=== PATIENT | female | born 1940 | race Caucasian/White ===

== ENCOUNTER 2017-06-28 09:50 | Outpatient (CLI) | payer MEDICARE, SELFPAY | END 2017-06-28 10:35 | disposition home or self-care (01) | PROVIDERS: Visit Provider Internal Medicine Adolescent Medicine | DX: M85.80 Other specified disorders of bone density and structure, unspecified site (principal); E55.9 Vitamin D deficiency, unspecified | CPT/HCPCS: 96372; J0897 ==

== ENCOUNTER → 2017-11-22 11:49 | Outpatient (CLI) | payer MEDICARE, OTHER, SELFPAY ==
--- NOTE | 2017-11-22 11:52 | NM_ITS ---
CARDIOLITE SPECT MYOCARDIAL PERFUSION SCAN, REST AND STRESS: EXERCISE STRESS [facility] REVIEW QGS EF AND WALL MOTION EVALUATION: QPS - PERFUSION EVALUATION HISTORY: chest pain..soa DOSE: 9.98 mCi technetium 99m mibi intravenously at rest followed by 30.9 mCi technetium 99m mibi following the intravenous ministration of 0.4 mg of Lexiscan. Resting blood pressure is 141/68. Stress blood pressure 173/74. FINDINGS: Ejection fraction is calculated to be 88%. Stress images reveal uniform myocardial activity however rest images reveal decreased activity in the anterior wall. Gated images calculated ejection fraction of 88% with hyperdynamic wall motion. IMPRESSION: Evidence of reverse redistribution in the anterior wall. This is an abnormal high risk stress test. Hyperdynamic ejection fraction hyperdynamic wall motion.
== END ==
PROVIDERS: PCP Nurse Practitioner Family; Visit Provider Internal Medicine
DX: I20.8 Other forms of angina pectoris (principal); I65.29 Occlusion and stenosis of unspecified carotid artery; I11.9 Hypertensive heart disease without heart failure
CPT/HCPCS: 78452; 93017; 93306

== ENCOUNTER 2018-01-01 13:43 | Outpatient (CLI) | payer MEDICARE, BC, SELFPAY ==
[2018-01-01 14:00] VITALS: BP 110/78; PULSE 80; RESP 18; TEMP 36.8
[2018-01-01 14:20] VITALS: BP 110/78; PULSE 80; RESP 18; TEMP 36.8
== END 2018-01-01 14:20 | disposition home or self-care (01) ==
LOC: INF 13:43
PROVIDERS: PCP Nurse Practitioner Family; Visit Provider Internal Medicine Adolescent Medicine
DX: M85.80 Other specified disorders of bone density and structure, unspecified site (principal); E55.9 Vitamin D deficiency, unspecified
CPT/HCPCS: 96372; J0897

== ENCOUNTER → 2018-04-05 15:07 | Outpatient (CLI) | payer MEDICARE, BC, SELFPAY ==
--- NOTE | 2018-04-05 15:11 | XR_ITS ---
XR DEXA axial skeleton HISTORY: ITS.REASON: AGE RELATED OSTEOPOROSIS ORDERING PHYSICIAN: Juliette Land PATIENT AGE: 77 years COMPARISON: None FINDINGS: The BMD measured at the left femoral neck is 0.682 g/cm squared with a T score of -2.6. This is considered OSTEOPORTIC according to the World Health Organization criteria. Fracture risk is High. Treatment is advised. IMPRESSION: Osteoporosis with high fracture risk. Pharmacological treatment recommended. Suggest follow-up exam April 2019 to monitor response to therapy
--- NOTE | 2018-04-05 15:11 | MM_ITS ---
MM Dig screening mamm BI w/CAD CAD Screening COMPARISON: Digital mammograms with CAD 12/21/2016 and 05/22/2015 INDICATION: There is no personal or family history of breast cancer. There have been previous biopsies on each breast both benign. TECHNIQUE: Standard CC and MLO images were obtained. R2 CAD reviewed. FINDINGS: Moderate scattered fibroglandular densities are seen in both breasts slightly more prominent left breast than the right. There are few benign-appearing calcifications in each breast and there is arterial calcification noted bilaterally. There is a mole marker axillary tail right breast. There are stable benign-appearing nodular densities right breast. There is no suspicious lesion and no suspicious microcalcifications. IMPRESSION: Fibrofatty parenchyma no suspicious lesion seen BI-RADS Category: 2 Benign Finding(s) RECOMMENDED FOLLOW-UP: 1YR - 1 YEAR FOLLOW-UP (A letter has been sent to the patient regarding results of the study.)
== END ==
PROVIDERS: PCP Nurse Practitioner Family; Visit Provider Nurse Practitioner Family
DX: Z12.31 Encounter for screening mammogram for malignant neoplasm of breast (principal); Z13.820 Encounter for screening for osteoporosis; M81.0 Age-related osteoporosis without current pathological fracture
CPT/HCPCS: 77067; 77080

== ENCOUNTER → 2018-05-30 19:52 | Outpatient (CLI) | payer MEDICARE, BC, OTHER, SELFPAY | PROVIDERS: PCP Nurse Practitioner Family; Visit Provider Nurse Practitioner Family | DX: G47.00 Insomnia, unspecified (principal); R40.0 Somnolence; I25.10 Atherosclerotic heart disease of native coronary artery without angina pectoris; I10 Essential (primary) hypertension; G47.30 Sleep apnea, unspecified | CPT/HCPCS: 95810 ==

== ENCOUNTER 2018-07-05 14:25 | Outpatient (CLI) | payer MEDICARE, BC, SELFPAY ==
[2018-07-05 14:50] VITALS: BP 140/81; PULSE 81; RESP 18; O2SAT 95
== END 2018-07-05 15:10 | disposition home or self-care (01) ==
LOC: INF 14:38
PROVIDERS: Visit Provider Internal Medicine Adolescent Medicine
DX: M85.80 Other specified disorders of bone density and structure, unspecified site (principal)
CPT/HCPCS: 96372; J0897

== ENCOUNTER → 2018-08-17 06:46 | Outpatient (CLI) | payer MEDICARE, BC, SELFPAY ==
--- NOTE | 2018-08-17 06:52 | NM_ITS ---
History and Indications: Coronary artery disease, hypertension, diabetes, hyperlipidemia, family history, chest pain, shortness of breath and fatigue Procedure: Patient received a 0.4 mg of intravenous Lexiscan, resting heart rate was 77 bpm resting blood pressure 132/60, with Lexiscan maximum heart achieved was 115 bpm which is less than 85% of the maximum predicted heart rate and a blood pressure was 170/80. With Lexiscan patient complained of nausea and chest pain. Electrocardiogram: Resting echocardiogram showed sinus rhythm nonspecific ST-T changes, rightward axis with Lexiscan there is less than 1.[address] segment depression noted from the baseline EKG. The EKG portion of the Lexiscan Myoview is nondiagnostic. Cardiac stress and resting SPECT images: Cardiac stress and resting SPECT images were obtained using technetium 99 Myoview 32.8 mCi stress and 9.9 mCi at rest. Gated SPECT further analysis of segmental wall motion and calculation of the ejection fraction also done. Cardiac stress and resting SPECT images show uniform myocardial activity without segmental perfusion abnormality, computer derived ejection fraction is over 65% with no regional wall motion abnormality, right ventricle is normal size and contractility. Conclusion: 1. The EKG portion of the Lexiscan Myoview is nondiagnostic. 2. No scintigraphic evidence of reversible ischemia seen. Computer derived ejection fraction is over 65% with no regional wall motion abnormality, right ventricle is normal size and contractility. 3. Normal Lexiscan Myoview study.
--- NOTE | 2018-08-17 09:23 | HMH.ITSHM ---
Current Home Medications as stated by this patient Megan Pineda or pharmaceutical service representative. []METFORMIN CLOPIDOGREL ROVASTATIN DIAZEPAM METOPROLOL LANSOPRAZOLE MIRTERZAPINE
== END ==
PROVIDERS: PCP Internal Medicine Adolescent Medicine; Visit Provider Nurse Practitioner Family
DX: I25.10 Atherosclerotic heart disease of native coronary artery without angina pectoris (principal); R06.09 Other forms of dyspnea; I73.9 Peripheral vascular disease, unspecified; I11.9 Hypertensive heart disease without heart failure; E78.5 Hyperlipidemia, unspecified
CPT/HCPCS: 78452; 93017; A9502; J2785

== ENCOUNTER → 2018-09-05 07:52 | Outpatient (CLI) | payer MEDICARE, BC, SELFPAY ==
--- NOTE | 2018-09-05 07:54 | CI_ITS ---
Cerebrovascular Exam IMPRESSIONS 1. The bilateral vertebral arteries are patent with normal antegrade flow. 2. Study suggests 50-69% stenosis involving the right internal carotid artery and the left internal carotid artery. History: Coronary artery disease. Risk factors: Former tobacco use. Hypertension. Carotid duplex study. Complete study and Doppler flow study including spectral analysis, color and schuster scale imaging. Height: Height: 157.5cm. Height: 62in. Weight: Weight: 56.7kg. Weight: 124.7lb. Body mass index: BMI: 22.9kg/m^2. Body surface area: BSA: 1.58m^2. Location: Vascular laboratory. Patient status: Outpatient. Tables: Arterial flow: + +--------+--------+ Location V sys V ed + +--------+--------+ Right CCA - proximal 95.7cm/s 21.6cm/s + +--------+--------+ Right CCA - distal 108cm/s 21cm/s + +--------+--------+ Right ECA 191cm/s -------- + +--------+--------+ Right ICA - proximal 168cm/s 41.3cm/s + +--------+--------+ Right ICA - mid 102cm/s 22cm/s + +--------+--------+ Right ICA - distal 114cm/s 38.3cm/s + +--------+--------+ Right vertebral 60.3cm/s -------- + +--------+--------+ Left CCA - proximal 97.4cm/s 23.3cm/s + +--------+--------+ Left CCA - distal 163cm/s 31.4cm/s + +--------+--------+ Left ECA 183cm/s -------- + +--------+--------+ Left ICA - proximal 146cm/s 33cm/s + +--------+--------+ Left ICA - mid 125cm/s 36.1cm/s + +--------+--------+ Left ICA - distal 138cm/s 40.9cm/s + +--------+--------+ Left vertebral 56.6cm/s -------- + +--------+--------+ Velocity ratios: + + + + + + Right, V sys Right, V ed Left, V sys Left, V ed + + + + + + Max ICA/dist CCA 1.56 1.97 0.9 1.3 + + + + + + (Report amended ) Electronically signed by: Curly Lemon [id number]
--- NOTE | 2018-09-05 07:54 | NVE_ITS ---
Venous Exam Indications: 729.5 Pain in limb. IMPRESSIONS No evidence of deep or superficial vein thrombosis involving the right lower extremity and left lower extremity History: Risk factors: Former tobacco use. Hypertension. Medications: Clopidogrel (Plavix) daily. Patient has 2 palpable knots, one in each thigh, that are superficial in nature. Complete lower extremity venous duplex evaluation. Doppler flow study including spectral analysis, color and schuster scale imaging. Location: Vascular laboratory. Patient status: Outpatient. Tables: Venous flow and imaging: + +-------+ + Location Overall Flow properties + +-------+ + Right common femoral Patent Normal phasicity; spontaneous; normal augmentation; compressible + +-------+ + Right saphenofemoral junction Patent Compressible + +-------+ + Right profunda femoral Patent Compressible + +-------+ + Right femoral Patent Normal phasicity; spontaneous; normal augmentation; compressible; no reflux + +-------+ + Right greater saphenous Patent Normal phasicity; spontaneous; normal augmentation; compressible + +-------+ + Right popliteal Patent Normal phasicity; spontaneous; normal augmentation; compressible + +-------+ + Right posterior tibial Patent Compressible + +-------+ + Right peroneal Patent Compressible + +-------+ + Right gastrocnemius Patent Compressible + +-------+ + Right soleal Patent Compressible + +-------+ + Left common femoral Patent Normal phasicity; spontaneous; normal augmentation; compressible + +-------+ + Left saphenofemoral junction Patent Compressible + +-------+ + Left profunda femoral Patent Compressible + +-------+ + Left femoral Patent Normal phasicity; spontaneous; normal augmentation; compressible + +-------+ + Left greater saphenous Patent Normal phasicity; spontaneous; normal augmentation; compressible + +-------+
== END ==
PROVIDERS: PCP Nurse Practitioner Family; Visit Provider Nurse Practitioner Family
DX: I65.23 Occlusion and stenosis of bilateral carotid arteries; E78.5 Hyperlipidemia, unspecified; I11.9 Hypertensive heart disease without heart failure; I73.9 Peripheral vascular disease, unspecified; M79.605 Pain in left leg; I25.119 Atherosclerotic heart disease of native coronary artery with unspecified angina pectoris; Z87.891 Personal history of nicotine dependence
CPT/HCPCS: 93880; 93970

== ENCOUNTER → 2018-10-10 13:09 | Outpatient (POV) | payer MEDICARE, BC, SELFPAY | DX: Z00.00 Encounter for general adult medical examination without abnormal findings (principal) ==

== ENCOUNTER 2019-01-04 08:45 | Outpatient (CLI) | payer MEDICARE, BC, SELFPAY ==
[2019-01-04 08:57] VITALS: BP 153/71; PULSE 75; RESP 18; O2SAT 95
== END 2019-01-04 09:00 | disposition home or self-care (01) ==
LOC: INF 08:50
PROVIDERS: Visit Provider Internal Medicine Adolescent Medicine
DX: M81.0 Age-related osteoporosis without current pathological fracture (principal)
CPT/HCPCS: 96372; J0897

== ENCOUNTER → 2019-03-08 07:21 | Outpatient (CLI) | payer MEDICARE, BC, SELFPAY ==
--- NOTE | 2019-03-08 | CA_ITS ---
APPROVED REPORT Exam: Pharmacologic Technologist: Delmi Cook, Ht: 5 ft 2 in Wt: 121 lbs BSA: 1.54 m2 Medical History Medical History: CAD s/p stent,DIZZY Medications: Metoprolol,,,,, Asa,,,,, Diazepam,,,,, Ramipril,,,,, Vit C,,,,, RoSUVASTATIN,,,,, Lansoprasole,,,,, MiTRAZINE,,,,, Allergies: CELECOXIB,ROFECOXIB,PCN Cardiac Risk Factors: HTN, Hyperlipidemia, FHX of CAD Stress Test Details Test: LEXISCAN HR Resting HR: 80 bpm Max Heart Rate (APMHR): 143 bpm Max HR Achieved: 106 bpm Target HR (85% APMHR): 121 bpm % of APMHR: 74 Recovery HR: 99 bpm BP Resting BP: 157.0/58.0 mmHg Max BP: 164.0/65.0 mmHg Recovery BP: 145.0/69.0 mmHg ECG Clinical Exercise duration: 04:00 min Highest Stage Achieved: Exercise capacity: 1.0 METs Stress ECG Conclusion LEXISCAN PORTION COMPLETED. C/O STOMACH CRAMPING DURING PEAK INFUSION. NO CHEST PAIN OR SOA. STOMACH CRAMPING DURING PEAK INFUSION RESOLVED IN RECOVERY. OCCASIONAL PVC. OCCASIONAL PAC. LESS THAN 1.5MM ST DEPRESSION. IMAGES TO FOLLOW Electronically signed by : Suleiman Lama, 03/08/2019 17:59:48
--- NOTE | 2019-03-08 07:23 | CA_ITS ---
APPROVED REPORT Crew Boss: CHANDNI Laterality: Bilateral Study Quality: Good Indications: NICOLÁS Risk Factors Hypertension: Hyperlipidemia Doppler Spectral Velocity Analysis ECA (R) 166.00/15.80 cm/s ECA (L) 93.80/7.93 cm/s dICA (R) 86.10/17.50 cm/s dICA (L) 90.30/22.80 cm/s Gee (R) 82.50/18.70 cm/s Gee (L) 124.00/25.50 cm/s pICA (R) 139.00/29.10 cm/s pICA (L) 91.30/22.80 cm/s dCCA (R) 98.20/17.30 cm/s dCCA (L) 132.00/25.50 cm/s pCCA (R) 101.00/14.10 cm/s pCCA (L) 92.20/21.10 cm/s Vert (R) 58.00/10.50 cm/s Vert (L) 48.50/6.68 cm/s ICA/CCA 1.42 ICA/CCA 0.69 Findings Duplex evaluation demonstrates stenosis of the right proximal internal carotid artery in the range of 20-49% with PSV <140 cm/sec, EDV <100 cm/sec, and IC/CC Ratio <4.0.Duplex evaluation demonstrates stenosis of the left proximal internal carotid artery in the range of 20-49% with PSV <140 cm/sec, EDV <100 cm/sec, and IC/CC Ratio <4.0. Antegrade flow in both vertebrals Conclusion Duplex evaluation demonstrates stenosis of the bilateral Internal Carotid Arteries in the range of 20-49% <140 cm/sec. Electronically signed by : Curly Lemon MD 03/08/2019 17:01:22
--- NOTE | 2019-03-08 07:23 | NM_ITS ---
APPROVED REPORT Exam: Nuclear Stress Test Indication: CAD, 2 STINTS, HTN, DM, FM HX, FATIQUQ, DIZZINESSS Patient Location: Outpatient Stress Tech: Keysha Beniteznkson [place] Tech:Sherrie Persaud, ARRT RT (R)(N)(M) Ht: 5 ft 2 in Wt: 121 lbs BSA: 1.54 m2 HR: 78 bpm BMI: 22.1 History: CAD, 2 STINTS, HTN, DM, FM HX, FATIQUQ, DIZZINESS Procedure: Patient received a 0.4 mg of intravenous Lexiscan, resting heart rate 78 bpm, resting blood pressure 157/58 mmHg, with Lexiscan maximum heart rate achived was 104 bpm which is Less than 85 % of the maximum predicted heart rate and blood pressure was 159/60 mmHg. With Lexiscan, patient denied any complaint of chest pain. Electrocardiogram Resting electro cardiogram showed sinus rhythm, with Lexiscan there is less than 1.[address] segment depression noted from the baseline EKG. The EKG portion of the Lexiscan Myoview is nondiagnostic. Cardiac Stress and Resting SPECT Images: Cardiac Stress and Resting SPECT images were obtained using technetium 99m Myoview 31.7 mCi stress and 10.07 mCi at rest. Gated SPECT with analysis of segmental wall motion and calculation of the ejection fraction also done. Cardiac stress and resting SPECT images show uniform myocardial activity without segmental perfusion abnormality, computer derived ejection fraction is 64% with no regional wall motion abnormality, right ventricle is normal size and contractility. Conclusion: 1. The EKG portion of the Lexiscan Myoview is nondiagnostic. 2. No scintigraphic evidence of reversible ischemia seen, computer derived ejection fraction is 64% with no regional wall motion abnormality, right ventricle is normal size and contractility. 3. Normal Lexiscan Myoview study. Electronically signed by : Suleiman Lama, 03/08/2019 13:21:35
== END ==
PROVIDERS: PCP Nurse Practitioner Family; Visit Provider Physician Assistant
DX: I25.10 Atherosclerotic heart disease of native coronary artery without angina pectoris; R06.02 Shortness of breath; E78.5 Hyperlipidemia, unspecified; I11.9 Hypertensive heart disease without heart failure; I73.9 Peripheral vascular disease, unspecified; M79.605 Pain in left leg; I65.23 Occlusion and stenosis of bilateral carotid arteries
CPT/HCPCS: 78452; 93017; 93880; A9502; J2785

== ENCOUNTER → 2019-04-10 14:15 | Outpatient (POV) | payer MEDICARE, BC, SELFPAY | PROVIDERS: Visit Provider Internal Medicine | DX: Z00.00 Encounter for general adult medical examination without abnormal findings (principal) ==

== ENCOUNTER → 2019-05-03 10:22 | Outpatient (CLI) | payer MEDICARE, BC, SELFPAY ==
--- NOTE | 2019-05-03 10:24 | MM_ITS ---
PROCEDURE: MM DIG SCREENING MAMM BI W/CAD Patient Age:78Y CLINICAL INDICATION: screening routine screening mammogram. No hormones. No new complaints but The patient has had previous excisional biopsies of both right and left breast. The history sheet nodes biopsy scars at the superior the breast both at the upper outer quadrant and upper inner quadrant. Also scar just lateral to left nipple at 4 o'clock position COMPARISON: [facility]MSB DIG MAMM-SCREEN AXEL from 05/14/2014 [id number] DIG MAMM-DX UNI ADD VIEWS-RT from 06/09/2014 [facility] DIG MAMM-SCREEN AXEL from 05/22/2015 [facility] DIG MAMM-SCREEN AXEL W/CAD from 12/21/2016 [facility] MM Dig screening mamm BI w/CAD from 04/05/2018 TECHNIQUE: Standard CC and MLO images were obtained. R2 CAD reviewed. Additional axillary CC view left breast only FINDINGS: Right breast appear stable no new areas of concern follow-up in 1 year on right. Left breast: On today's MLO view there is an area of slight increased density seen at the deep breast towards posterior margin of image; may merely due to technique and positioning or less compression.... Regional density here slightly more evident than on multiple previous MLO views-. Also note today's left axillary CC view was there is moderate density towards the posterior axillary tail left breast; this area was not included previously, no previous axillary CC views. Thus would recommend spot views MLO, CC along with full 90 degree view left breast to further evaluate. A left breast ultrasound may be of benefit as well I would note the patient has had biopsies in this region which may contribute to the asymmetry here and the mild architectural irregularity seen in areas of left breast IMPRESSION: Left breast: Area of slight increased density seen at posterior breast on both CC and MLO view. Merely be an area of accentuated areas of scarring or asymmetric breasts tissue, but does warrants spot views and ultrasound to further evaluate on left A right mammogram: Unchanged. Follow-up right mammogram 1 year BI-RAD Category: 0 Need Additional Imaging Evaluation FOLLOW-UP: IMM Immediate Follow-up Recommended (A letter has been sent to the patient regarding results of the study.) Dictated by: Chon Duron MD 05/04/2019 12:07 Electronically signed by Chon Duron MD in [place] 05/04/2019 12:07
== END ==
PROVIDERS: PCP Nurse Practitioner Family; Visit Provider Nurse Practitioner Family
DX: Z12.31 Encounter for screening mammogram for malignant neoplasm of breast (principal)
CPT/HCPCS: 77067

== ENCOUNTER → 2019-06-07 10:10 | Outpatient (CLI) | payer MEDICARE, BC, SELFPAY ==
--- NOTE | 2019-06-07 10:16 | XR_ITS ---
PROCEDURE: XR FOOT RT MIN 3V CLINICAL INDICATION: RT FOOT PAIN COMPARISON: No exams were available for comparison FINDINGS: No fracture or dislocation. No lytic or blastic change. There is normal mineralization. The joint spaces are well-preserved. No significant degenerative/arthritic changes. No erosive changes evident. There is no evidence of recent or old fracture. There is mild spurring of the calcaneus at the insertion of the Achilles tendon. The plantar arch is normal. Other findings:None. IMPRESSION: No acute findings. Dictated by: Dr. Jose Godfrey MD 06/07/2019 10:[address] Jose Godfrey MD in [place] 06/07/2019 10:56
== END ==
PROVIDERS: PCP Nurse Practitioner Family; Visit Provider Internal Medicine Adolescent Medicine
DX: M79.671 Pain in right foot (principal)
CPT/HCPCS: 73630

== ENCOUNTER 2019-06-19 15:12 | Outpatient (RCR) | payer MEDICARE, BC, SELFPAY | END 2019-06-19 15:45 | disposition home or self-care (01) | LOC: PT 15:12 | PROVIDERS: Visit Provider Internal Medicine Adolescent Medicine | DX: M79.671 Pain in right foot (principal) ==

== ENCOUNTER → 2019-06-21 15:00 | Outpatient (CLI) | payer MEDICARE, BC, SELFPAY ==
--- NOTE | 2019-06-21 15:00 | MM_ITS ---
PROCEDURE: MM DIG MAMM DX UNILAT LT CAD CLINICAL INDICATION: abnormal mammogram COMPARISON: [facility] DIG MAMM-SCREEN AXEL W/CAD from 12/21/2016 [facility] MM Dig screening mamm BI w/CAD from 04/05/2018 MM DIG SCREENING MAMM BI W/CAD from 05/03/2019 TECHNIQUE: Spot-compression MLO and CC views and 90 degree lateral view FINDINGS: Moderate scattered fibroglandular densities are seen. The additional views and spot compression views show no definite persistent suspicious mass or architectural distortion. There are no suspicious microcalcifications. Again noted are the couple benign-appearing calcifications IMPRESSION: Negative problem solving views BI-RAD Category: 2 Benign Finding(s) FOLLOW-UP: 1YR 1 Year Follow-up (A letter has been sent to the patient regarding results of the study.) Dictated by: Dr. Jose Godfrey MD 07/04/2019 14:[address] Jose Godfrey MD in [place] 07/04/2019 14:21
--- NOTE | 2019-06-21 15:48 | US_ITS ---
PROCEDURE: US BREAST LT COMPLETE CLINICAL INDICATION: ABNORMAL MAMM COMPARISON: No exams were available for comparison FINDINGS: Scanning throughout the entire breast shows no suspicious cystic or solid lesion. There is a small hyperechoic oval lesion at the 1 o'clock position measuring 0.7 by 0.5 x 0.2 cm with fairly well defined borders and this likely is a small lipoma. There are couple normal size and normal appearing nodes in the axilla. IMPRESSION: Essentially unremarkable ultrasound left breast Dictated by: Dr. Jose Godfrey MD 07/04/2019 14:[address] Jose Godfrey MD in [place] 07/04/2019 14:16
== END ==
PROVIDERS: PCP Nurse Practitioner Family; Visit Provider Obstetrics & Gynecology
DX: R92.8 Other abnormal and inconclusive findings on diagnostic imaging of breast (principal)
CPT/HCPCS: 76641; 77065

== ENCOUNTER 2019-07-08 12:21 | Outpatient (CLI) | payer MEDICARE, BC, SELFPAY ==
[2019-07-08 12:30] VITALS: BP 125/74; PULSE 68; RESP 20; TEMP 36.9; O2SAT 95
== END 2019-07-08 13:00 | disposition home or self-care (01) ==
LOC: INF 12:21
PROVIDERS: PCP Nurse Practitioner Family; Visit Provider Internal Medicine Adolescent Medicine
DX: M81.0 Age-related osteoporosis without current pathological fracture (principal)
CPT/HCPCS: 96372; J0897

== ENCOUNTER → 2019-08-19 10:53 | Outpatient (CLI) | payer MEDICARE, BC, SELFPAY ==
--- NOTE | 2019-08-19 10:53 | CA_ITS ---
APPROVED REPORT Paid Intern: Daphnie Zimmerman RVT Laterality: Bilateral Study Quality: Good Indications: Carotid stenosis Risk Factors Hypertension: Hyperlipidemia Ex smoker Doppler Spectral Velocity Analysis ECA (R) 143.10/7.70 cm/s ECA (L) 139.80/9.90 cm/s dICA (R) 111.60/27.90 cm/s dICA (L) 89.00/19.10 cm/s Gee (R) 76.90/10.90 cm/s Gee (L) 148.90/21.50 cm/s pICA (R) 152.00/42.00 cm/s pICA (L) 218.90/36.80 cm/s dCCA (R) 82.30/19.60 cm/s dCCA (L) 98.60/15.60 cm/s pCCA (R) 86.00/19.90 cm/s pCCA (L) 113.20/27.40 cm/s Vert (R) 52.60/14.80 cm/s Vert (L) 42.00/7.20 cm/s ICA/CCA 1.85 ICA/CCA 2.22 Findings Study suggests 50-69% stenosis of the right internal cartoid artery unchanged from the 09/05/18 study. Study suggests 50-69% stenosis of the left internal cartoid artery unchanged from the 09/05/18 study. Antegrade flow seen bilateral vertebral arteries. 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 Study suggests 50-69% stenosis of the left internal cartoid artery unchanged from the 09/05/18 study. Antegrade flow seen bilateral vertebral arteries. Electronically signed by : Fransico Metzger, 08/21/2019 07:19:05
== END ==
PROVIDERS: PCP Nurse Practitioner Family; Visit Provider Physician Assistant
DX: I11.9 Hypertensive heart disease without heart failure (principal); I25.10 Atherosclerotic heart disease of native coronary artery without angina pectoris; R42 Dizziness and giddiness; I65.23 Occlusion and stenosis of bilateral carotid arteries
CPT/HCPCS: 93880

== ENCOUNTER → 2019-09-23 14:45 | Outpatient (CLI) | payer MEDICARE, BC, SELFPAY ==
--- NOTE | 2019-09-23 14:49 | US_ITS ---
PROCEDURE: US KIDNEY CLINICAL INDICATION: PROTEINURIA COMPARISON: No exams were available for comparison FINDINGS: The right kidney is [id number]. No hydronephrosis, cortical thinning, or renal mass or perinephric fluid collection is evident. The left kidney is [id number]. No hydronephrosis, cortical thinning, or renal mass or perinephric fluid collection is evident. There is mild bilateral renal cortical thinning IMPRESSION: Renal cortical thinning otherwise negative bilateral renal ultrasound. Dictated by: Curly Lemon MD 09/23/2019 15:39 Electronically signed by Curly Lemon MD in [place] 09/23/2019 15:39
== END ==
PROVIDERS: PCP Nurse Practitioner Family; Visit Provider Nurse Practitioner Family
DX: R80.8 Other proteinuria (principal)
CPT/HCPCS: 76770

== ENCOUNTER → 2019-10-23 13:59 | Outpatient (POV) | payer MEDICARE, BC, SELFPAY | PROVIDERS: PCP Nurse Practitioner Family | DX: Z00.00 Encounter for general adult medical examination without abnormal findings (principal) ==

== ENCOUNTER 2020-01-06 10:23 | Outpatient (CLI) | payer MEDICARE, BC, SELFPAY ==
[2020-01-06 10:25] VITALS: BP 116/49; PULSE 65; RESP 18; TEMP 36.7; O2SAT 98
== END 2020-01-06 10:40 | disposition home or self-care (01) ==
LOC: INF 10:23
PROVIDERS: PCP Nurse Practitioner Family; Visit Provider Internal Medicine Adolescent Medicine
DX: M81.0 Age-related osteoporosis without current pathological fracture (principal)
CPT/HCPCS: 96372; J0897

== ENCOUNTER → 2020-01-22 09:34 | Outpatient (CLI) | payer MEDICARE, BC, SELFPAY ==
--- NOTE | 2020-01-22 09:53 | CT_ITS ---
PROCEDURE: CT ABDOMEN PELVIS WO/W CON CLINICAL INDICATION: WEIGHT LOSS Weight loss with generalized abdominal pain COMPARISON: ABDPELW/O CT ABD PELVIS W/O CONTRAST from 07/18/2014 TECHNIQUE: IV Contrast: 75ML OPTIRAY 350 Oral Contrast None Axial images obtained with sagittal and coronal reformats. All CT scans at the facility use one or more dose reduction, viz: automated exposure control, ma/kV adjustment per patient size (including targeted exams where dose is matched to indication, i.e. head), or iterative reconstruction technique. FINDINGS: The liver and spleen have an unremarkable appearance. There is a medium-sized hiatal hernia. There has been a prior cholecystectomy. There is pancreatic atrophy there are nonobstructing bilateral renal calculi well as vascular calcifications in both kidneys. No ureteral calculi. A small cyst is present along lower pole of the right kidney posteriorly at 8 mm. There is an additional cyst involving the right kidney medially at 5 mm. No intestinal obstruction or free air. No evidence of appendicitis. There is diverticulosis of the transverse descending and sigmoid colon. Prior hysterectomy. No pelvic mass or abnormal fluid collection. Prior L1 kyphoplasty with mild wedging of L1. IMPRESSION: 1. No acute abdominal or pelvic findings. 2. Medium-sized hiatal hernia. 3. Nonobstructing renal calculi versus vascular calcifications. Dictated by: Curly Lemon MD 01/23/2020 10:03 Electronically signed by Curly Lemon MD in [place] 01/23/2020 10:03
--- NOTE | 2020-01-22 10:20 | CT_ITS ---
PROCEDURE: CT CHEST W CON CLINCAL INDICATION: WEIGHT LOSS COMPARISON: CT ABDOMEN PELVIS WO/W CON from 01/22/2020 TECHNIQUE: IV Contrast: 75ml Optiray 350 Axial images obtained with sagittal and coronal reformats. All CT scans at the facility use one or more dose reduction, viz: automated exposure control, ma/kV adjustment per patient size (including targeted exams where dose is matched to indication, i.e. head), or iterative reconstruction technique. FINDINGS: HEART AND MEDIASTINAL STRUCTURES: There are mildly prominent right hilar lymph nodes on the right measuring up to 2.3 x 1.5 cm. No mediastinal adenopathy. A small precarinal node is present measuring 7 mm. Atherosclerotic calcification involves the aortic arch. Coronary artery stents and or calcification present. There is a small to medium-sized hiatal hernia. LUNGS AND PLEURAL SPACES: COPD changes with centrilobular emphysema. There is a 1.9 x 1.9 x 1.2 cm irregular opacity in the right upper lobe anteriorly and inferiorly along the major fissure. This does contain a few air bronchograms and may be due to an area of dense pneumonia. One cannot exclude the possibility of a neoplastic process. Follow-up is suggested. No effusions. Small area of atelectasis or infiltrate is noted in the superior segment of the right lower lobe. BONY STRUCTURES: Degenerative changes thoracic spine. Prior kyphoplasty at L1. UPPER ABDOMEN: Prior cholecystectomy. Moderate-sized hiatal hernia. ADDITIONAL FINDINGS: No other significant abnormalities. IMPRESSION: 1. There is a 1.9 cm irregular opacity in the inferior aspect of the right upper lobe. This does appear to contain some air bronchograms and could be due to an area of dense consolidation/pneumonia however, neoplasm is also consideration. Would recommend short-term CT follow-up in 2-4 weeks following completed treatment for pneumonia. If this persists then, PET CT may provide further evaluation. There is some mild right hilar adenopathy which could be reactive or neoplastic. 2. COPD with centrilobular emphysema. 3. Hiatal hernia Dictated by: Curly Lemon MD 01/23/2020 09:52 Electronically signed by Curly Lemon MD in [place] 01/23/2020 09:52
== END ==
PROVIDERS: PCP Nurse Practitioner Family; Visit Provider Nurse Practitioner Family
DX: R63.4 Abnormal weight loss (principal)
CPT/HCPCS: 71260; 74178; Q9967

== ENCOUNTER → 2020-02-24 09:59 | Outpatient (CLI) | payer MEDICARE, BC, SELFPAY ==
[2020-02-24 13:11] LABS: Coronavirus 19 IgG Antibody Negative (Negative); Coronavirus 19 IgM Antibody Negative (Negative)
== END ==
PROVIDERS: Visit Provider Surgery
DX: Z01.818 Encounter for other preprocedural examination (principal); Z12.11 Encounter for screening for malignant neoplasm of colon
CPT/HCPCS: 36415; 86328

== ENCOUNTER 2020-02-25 08:19 | Day surgery (SDC) | payer MEDICARE, BC, SELFPAY ==
[2020-02-24 08:49] VITALS: BMI 19.7
[2020-02-25 08:51] VITALS: BP 146/67; PULSE 80; RESP 16; TEMP 36.7; O2SAT 98
--- NOTE | 2020-02-25 09:09 | HMH.HP ---
*Admission Date: 02/25/20 *Chief complaint: Weight loss, inability to eat *History of present illness: Patient is a 79-year-old female referred by Sima Land for EGD and colonoscopy. I had seen the patient in July 2016 and performed EGD and colonoscopy. At that time she had a moderately large sliding hiatal hernia, some gastritis, and mild chronic duodenitis. Colonoscopy was performed which was somewhat difficult due to chronic diverticulosis but ultimately using the endoscope right colon was evaluated in a limited fashion. This was followed by contrast enema which revealed no obvious mass lesion. I had recommended a follow-up colonoscopy in 1 year at that time. She states that for couple of months she has had problems eating. She states I cannot eat . She has lost weight. She has lost about 10 pounds over 3 months. She describes most difficulty with eating meats. She describes some gagging and choking sensation. [facility] History I have reviewed the patient's past medical history: Yes Medical History: Reports:: Carotid Stenosis, Congestive Heart Failure, Coronary Artery Disease, Gastroesophageal Reflux Disease(GERD), Hyperlipidemia, Hypertension, Valvular Heart Disease Denies:: Cancer, Diabetes Mellitus Type 1, Diabetes Mellitus Type 2, Internal Pacemaker, MRSA, Seizures *Have you ever received a pneumonia vaccine?: Yes *Have you received a flu vaccine this season?: No Other Medical History: Reports: Arthritis, Cataracts Laterality Cases: Bilateral: Breast Biopsy, Tonsillectomy Other Surgeries: Yes: No Previous Surgery, Appendectomy, BSO, Cardiac Catheterization, Cholecystectomy, Coronary Stent, Hysterectomy-Total, Skin Cancer Excision, Tubal Ligation, Other. No: Pacemaker Amputation: No Fractures: No - *Social History Last grade of school completed: High school graduate Smoking Status: Never smoker Tobacco Type: cigarettes Alcohol Intake: never Alcohol Intake Frequency:: other Substance Use Type: denies use *Occupational Status:: retired Housing: house Household Members: children *Travel in the last 8 weeks: None Family Hx:: Cancer, Coronary Artery Disease, Heart Attack Review of Systems - Review of Systems Review of systems:: pertinent systems reviewed and negative unless documented below Meds Home Medications Medication Instructions Recorded Confirmed Type aspirin 81 mg tablet,delayed 81 mg PO DAILY tab 11/06/17 02/21/20 History release lansoprazole 30 mg capsule,delayed 30 mg PO DAILY 11/06/17 02/21/20 History release ramipril 5 mg tablet 5 mg PO DAILY tab 11/06/17 02/21/20 History ascorbic acid (vitamin C) 500 mg 500 mg PO DAILY cap 08/13/18 02/21/20 History capsule rosuvastatin 10 mg tablet 10 mg PO DAILY #90 tab 08/13/19 02/21/20 Rx Calcium Carbonate [Calcium] 600 mg PO DAILY 01/06/20 02/21/20 History Cholecalciferol (Vitamin D3) 125 mcg PO DAILY 01/06/20 02/21/20 History [Vitamin D3] Multivit-Min/Iron/Folic/Lutein 1 each PO DAILY 01/06/20 02/21/20 History [Centrum Silver Women Tablet] Trazodone HCl 25 mg PO HS 01/06/20 02/21/20 History vit C 250 mg-E 200 unit-zinc 40 1 tab PO BID 01/24/20 02/21/20 History mg-copper 1 [id number] capsule nitrofurantoin macrocrystal 100 mg 100 mg PO QHS 02/12/20 02/21/20 History capsule Metoprolol Tartrate [Lopressor 25 mg PO BID 02/21/20 02/21/20 History 25mg tablet] Allergies Allergy/AdvReac Type Severity Reaction Status Date / Time celecoxib [From CELEBREX] Allergy Severe RAPID Verified 02/24/20 08:48 HEART RATE rofecoxib [From VIOXX] Allergy Severe RAPID Verified 02/24/20 08:48 HEART RATE Penicillins [PENICILLINS] Allergy Unknown Verified 02/24/20 08:48 tuberculin, purified protein Allergy Unknown POSITIVE Verified 02/24/20 08:48 deriva REACTOR [TUBERCULIN,PURIF.PROT.DERIV.] Exam Vital signs and Labs for Last 24 Hours: Temp Pulse Resp BP Pulse Ox 98.0 F 80 16 146/67 H 98 02/25/20 0
[2020-02-25 09:31] VITALS: O2SAT 98
[2020-02-25 10:25] VITALS: BP 103/52; PULSE 79; RESP 16; TEMP 36.4; O2SAT 98
--- NOTE | 2020-02-25 10:29 | HMH.SCOPE ---
- Procedure: Date: 02/25/20 Procedure Performed:: Esophagogastroduodenoscopy with biopsies Total colonoscopy with polypectomy Indications:: Patient is a 79-year-old female referred by Sima Land for EGD and colonoscopy. I had seen the patient in July 2016 and performed EGD and colonoscopy. At that time she had a moderately large sliding hiatal hernia, some gastritis, and mild chronic duodenitis. Colonoscopy was performed which was somewhat difficult due to chronic diverticulosis but ultimately using the endoscope right colon was evaluated in a limited fashion. This was followed by contrast enema which revealed no obvious mass lesion. I had recommended a follow-up colonoscopy in 1 year at that time. She states that for couple of months she has had problems eating. She states I cannot eat . She has lost weight. She has lost about 10 pounds over 3 months. She describes most difficulty with eating meats. She describes some gagging and choking sensation. Performing Provider:: Kenny Mercado MD Referring Provider:: Sima Land Sedation:: Propofol Procedure:: Consent was obtained and patient was taken to endoscopy procedure room. She was positioned in lateral decubitus position. Adequate intravenous sedation was achieved with anesthesia titration of propofol. Attention was first turned to upper endoscopy. Olympus endoscope was inserted via the oropharynx. Esophagus was cannulated and scope was advanced through the esophagus which appeared relatively unremarkable. There is no evidence of any esophagitis. Stomach was cannulated and insufflated. She was noted to have a rather large sliding-type hiatal hernia which was confirmed with retroflexion. There was some minor diffuse nonerosive gastritis. Gastric mucosal biopsies obtained for CLOtest for H. pylori. Gastric mucosal biopsy was obtained for histopathologic analysis. Endoscope was advanced through the pylorus. Duodenum and duodenal sweep are unremarkable. Endoscope was withdrawn as the stomach was desufflated. Next attention was turned to colonoscopy. Patient was repositioned. Variable stiffness Olympus colonoscope was inserted via the anus. She had significant chronic distal sigmoid diverticular disease which made advancement of the colonoscope difficult. Ultimately this area was traversed and the colonoscope was advanced to the cecum. Ileocecal valve and appendiceal orifice were identified. Colonic preparation was excellent. Colonoscope was advanced briefly short distance into the ileocecal valve which appeared unremarkable. Colonoscope was withdrawn through the colon with careful surveillance. She had pandiverticulosis but this was before most pronounced diverticular disease in the distal sigmoid region. In the rectosigmoid region there is a hyperplastic appearing polyp which was removed with cold biopsy forceps. In the rectum there were a couple of additional hyperplastic appearing polyps which were removed with cold biopsy forceps. Retroflexion within the rectum revealed minimal internal hemorrhoids. Colonoscope was withdrawn. Findings:: Moderately large sliding hiatal hernia Mild diffuse nonerosive gastritis Pandiverticulosis with significant chronic diverticular disease in the distal sigmoid Hyperplastic appearing polyps Recommendations:: When the patient returns to the office for follow-up I will have discussion regarding the nature of her symptoms. If this seems to be potentially from mechanical etiology possible referral for consideration of hiatal hernia repair may be entertained. However, she may also require speech pathology assessment for swallowing evaluation. Complications:: None immediately apparent Estimated blood obtained (mL): 2
[2020-02-25 10:35] VITALS: BP 124/64; PULSE 84; RESP 16; O2SAT 100
--- NOTE | 2020-02-25 10:42 | HMH.ANESCL ---
[facility] Anesthesia Checklist - Patient Identification Patient Identification: Arm Band, Verbal (Name & ) - Structural Data Admitted From: Home Planned Operative Procedure/s: EGD/Colonoscopy Consent for Planned Operative Procedure(s) Verified: Yes Verified Documents: Surgical Consent, History and Physical - NPO Status Verified Time NPO: 00:00 - Chart Verification Results Verified: None - Additional verifications Anesthesia Reactions: No - Airway Assessment C-Spine Mobility Assessed: Yes (limited neck ROM) TMJ Mobility Assessed: Yes Dentition: Edentulous - Neurological Assessment Level of Consciousness: Awake, Alert, Appropriate, Follows Commands Hx Seizures: No Numbness or tingling in extremities: No - Anesthesia Plan Anesthesia Risk discussed: Yes Anesthesia Plan: Verified ASA Class: III Anesthesia Type: MAC [facility] History I have reviewed the patient's past medical history: Yes Medical History: Reports:: Carotid Stenosis, Congestive Heart Failure, Coronary Artery Disease, Gastroesophageal Reflux Disease(GERD), Hyperlipidemia, Hypertension, Valvular Heart Disease Denies:: Cancer, Diabetes Mellitus Type 1, Diabetes Mellitus Type 2, Internal Pacemaker, MRSA, Seizures *Have you ever received a pneumonia vaccine?: Yes *Have you received a flu vaccine this season?: No Other Medical History: Reports: Arthritis, Cataracts Anesthesia experience/problems:: None Laterality Cases: Bilateral: Breast Biopsy, Tonsillectomy Other Surgeries: Yes: No Previous Surgery, Appendectomy, BSO, Cardiac Catheterization, Cholecystectomy, Coronary Stent, Hysterectomy-Total, Skin Cancer Excision, Tubal Ligation, Other. No: Pacemaker Amputation: No Fractures: No - *Social History Last grade of school completed: High school graduate Smoking Status: Never smoker Tobacco Type: cigarettes Alcohol Intake: never Alcohol Intake Frequency:: other Substance Use Type: denies use *Occupational Status:: retired Housing: house Household Members: children *Travel in the last 8 weeks: None Family Hx:: Cancer, Coronary Artery Disease, Heart Attack
[2020-02-25 10:45] VITALS: BP 166/80; PULSE 87; RESP 16; O2SAT 97
[2020-02-25 10:55] VITALS: BP 165/70; PULSE 81; RESP 16; O2SAT 100
== END 2020-02-25 10:55 | disposition home or self-care (01) ==
LOC: OUTP 08:20
PROVIDERS: PCP Nurse Practitioner Family; Visit Provider Surgery
PROC: 0DJ08ZZ Inspection of Upper Intestinal Tract, Via Natural or Artificial Opening Endoscopic (ICD-10-PCS; CPT 43235; principal; 2020-02-25 09:30)
DX: K63.5 Polyp of colon (principal); K44.9 Diaphragmatic hernia without obstruction or gangrene; K29.60 Other gastritis without bleeding; K57.30 Diverticulosis of large intestine without perforation or abscess without bleeding; R63.4 Abnormal weight loss; Z68.1 Body mass index [BMI] 19.9 or less, adult; I65.29 Occlusion and stenosis of unspecified carotid artery; E78.5 Hyperlipidemia, unspecified; I11.0 Hypertensive heart disease with heart failure; I50.9 Heart failure, unspecified; K21.9 Gastro-esophageal reflux disease without esophagitis; Z90.89 Acquired absence of other organs
CPT/HCPCS: 43239; 45380; 87339; 88305

== ENCOUNTER → 2020-04-22 13:27 | Outpatient (POV) | payer MEDICARE, BC, SELFPAY | DX: Z00.00 Encounter for general adult medical examination without abnormal findings (principal) ==

== ENCOUNTER 2020-06-29 14:41 | Inpatient (IN) | payer MEDICARE, BC, SELFPAY ==
[2020-06-29] VITALS (10 sets, daily range): BP systolic 79–136; BP diastolic 44–66; PULSE 104–121; RESP 13–28; TEMP 35.3–37.3; O2SAT 87–98; BMI 21.1; BMI 20.6
--- NOTE | 2020-06-29 15:00 | PC.NURSE ---
PT UP TO BEDSIDE COMMODE
--- NOTE | 2020-06-29 15:00 | XR_ITS ---
PROCEDURE: XR CHEST 2V CLINICAL HISTORY: sepsis COMPARISON: CT CT CHEST W CON from 01/22/2020 FINDINGS: The cardiomediastinal silhouette and pulmonary vascularity are within normal limits. There are cardiac stents noted. The lungs are clear without infiltrates, suspicious nodules, or pleural effusions. There is minimal right perihilar atelectasis or scarring. No acute bony abnormalities. There has been a previous kyphoplasty of L1. IMPRESSION: No acute findings. Dictated by: Dr. Jose Godfrey MD 06/29/2020 20:43 Dr. Jose Godfrey MD in [facility] 06/29/2020 20:43
[2020-06-29 15:53] LABS: Basophils # 0.1 K/mm3 (0-0.2); Basophils % 0.5 % (0.1-2.0); Eosinophils # 0.1 K/mm3 (0.0-0.4); Eosinophils % 0.5 % (0.1-12.0); Hematocrit 49.8 % (37.0-47.0); Hemoglobin 15.8 g/dL (12.2-16.2); Lymphocytes # 2.9 K/mm3 (0.7-4.5); Lymphocytes % 11.5 % (10-50); Mean Corpuscular HGB Conc 31.9 g/dL (31.8-35.4); Mean Corpuscular Hemoglobin 30.7 pg (27.0-31.2); Mean Corpuscular Volume 96.5 fl (81-99); Mean Platelet Volume 8.7 fl (7.4-10.4); Monocytes # 1.1 K/mm3 (0.1-1.0); Monocytes % 4.2 % (1.7-9.3); Neutrophils % 83.3 % (37.0-80.0); Platelet Count 306 K/mm3 (142-424); Red Blood Count 5.16 M/mm3 (4.20-5.40); Red Cell Distribution Width 14.2 % (11.5-17.5); White Blood Count 25.2 K/mm3 (4.8-10.8)
[2020-06-29 15:55] LABS: MANUAL DIFFERENTIAL MANUAL DIFFERENTIAL (MANUAL DIFF)
[2020-06-29 16:02] LABS: Lactic Acid 5.8 mmol/L (0.7-2.1)
--- NOTE | 2020-06-29 16:02 | PC.NURSE ---
Notified MD pinon lactic of 5.8
--- NOTE | 2020-06-29 16:10 | CT_ITS ---
Procedure: CT ABDOMEN PELVIS WO CON Referring Doctor: Cj Watkins Patient Age:79Y CLINICAL INDICATION: abdominal and flank pain 79-year-old with Nausea vomiting. Scan done without contrast due to poor renal function COMPARISON: CT CT ABDOMEN PELVIS WO/W CON from 01/22/2020 TECHNIQUE: No IV contrast Helical axial images obtained with sagittal and coronal reformats. All CT scans at the facility use one or more dose reduction, viz: automated exposure control, ma/kV adjustment per patient size (including targeted exams where dose is matched to indication, i.e. head), or iterative reconstruction technique. FINDINGS: Lower thorax: Hyperexpansion suggests emphysematous changes with hazy appearance lung base likely reflect atelectasis but could not exclude early infiltrate . Prominent hiatal hernia with GE junction above the hiatus. Air-fluid level seen at the distal most esophagus is well reflecting flex the gastroesophageal reflux. ABDOMEN: Decreased sensitivity in evaluating abdomen pelvis due to lack of IV contrast but also note the patient has had a kyphoplasty at L1 the pronounced density here yields prominent streak artifact here at the upper abdomen at this level. Liver: Stable appearance since January 2020; the the the no discrete mass nor or biliary dilatation. Gallbladder: Surgically removed. Pancreas: No masses or peripancreatic fluid collections. Spleen: unremarkable Adrenals: unremarkable ----- tract Kidneys/ureters: Renal vascular calcifications bilaterally as well as numerous scattered renal calculi similar to previous study. No obstructive uropathy.. No period ureters unremarkable Urinary bladder fairly empty no calculi but no lesions but but there has been a hysterectomy. No significant adnexal masses, . Scant fluid pelvic basin ---- GI tract . Generous size hiatal hernia again noted. Remainder of the stomach below the hiatus is unremarkable she. Duodenal loop satisfactory. Small bowel. Progressive increased fluid towards distal small bowel. LARGE BOWEL. Abnormal but increased fluid, liquid stool throughout the large bowel with scattered air-fluid levels. This reflects prominent diarrhea but there is some wall thickening likely at the descending colon. Findings are compatible with colitis/enterocolitis . But there is some radiopaque material within the rectum along with what I suspect is liquid stool. Would note a low-lying mobile cecum is at at midline residing just superior to the bladder. I believe we do see a normal appendix extending from this area. Scant free fluid at the pelvic basin. Nonspecific Peritoneum: No.. No free air. Lymph nodes: No enlarged lymph nodes apparent. Vasculature: Diffuse atherosclerotic calcification aorta and iliacs. No significant aneurysmal dilatation evident. Bones: No acute findings but again the kyphoplasty/vertebroplasty yields a very dense appearance to the L1 vertebra. Moderate degenerative changes at multiple other levels the IMPRESSION: 1... Multiple moderately distended fluid-filled large bowel loops without obstruction. . Slight increased fluid at the distal small bowel Findings compatible with a enterocolitis/colitis and developing liquid stool diarrhea. 2.. The the generous hiatal hernia is again noted a slightly more evident today Dictated by: Chon Duron MD 06/29/2020 21:42 Chon Duron MD in [facility] 06/29/2020 21:42
[2020-06-29 16:11] LABS: Lymphocytes % 10 % (10-50); Monocytes % 2 % (2-9); Neutrophils % 88 % (42-76); Platelet Estimate Normal; RBC Morphology Normal; Total Cells Counted 100
[2020-06-29 16:21] LABS: Adenovirus F 40/41, stool Not Detected (NotDetected); Astrovirus Not Detected (NotDetected); Campylobacter Not Detected (NotDetected); Clostridium Difficile A/B, PCR Not Detected (NotDetected); Cryptosporidium Not Detected (NotDetected); Cyclospora Cayetanesis Not Detected (NotDetected); Entamoeba histolytica Not Detected (NotDetected); Enteroaggregative E coli Not Detected (NotDetected); Enteropathogenic E coli Not Detected (NotDetected); Enterotoxigenic E coli Not Detected (NotDetected); Giardia lamblia Not Detected (NotDetected); Norovirus Not Detected (NotDetected); Plesimonas Shigalloides, PCR Not Detected (NotDetected); Rotavirus A Not Detected (NotDetected); Salmonella, PCR Not Detected (NotDetected); Sapovirus Not Detected (NotDetected); Shiga-like toxin E coli Not Detected (NotDetected); Shigella Enterovasive E coli Not Detected (NotDetected); Vibrio Cholerae Not Detected (NotDetected); Vibrio, PCR Not Detected (NotDetected); Yersinia Entercolitica, PCR Not Detected (NotDetected)
[2020-06-29 16:33] LABS: Chloride 103 mmol/L (98-107)
[2020-06-29 16:34] LABS: Potassium 3.9 mmoL/L (3.5-5.1); Sodium 143 mmol/L (136-145)
[2020-06-29 16:36] LABS: Alanine Aminotransferase 44 U/L (12-78); Albumin Level 5.4 g/dl (3.5-5.0); Albumin/Globulin Ratio 1.3 (1.1-1.8); Alkaline Phosphatase 123 U/L (38-126); Anion Gap 22.9 mEq/L (5-15); Aspartate Amino Transferase 68 U/L (14-36); Bilirubin,Total 0.8 mg/dl (0.2-1.3); Blood Urea Nitrogen 27 mg/dl (7-17); Calcium 11.4 mg/dl (8.4-10.2); Carbon Dioxide 21 mmol/L (22.0-30.0); Creatinine Clearance Estimated 19 mL/min (50-200); Estimated Glomerular Filt Rate 26 ml/min (>60); GFR (African American) 31 ML/MIN (>60); Globulin 4.1 g/dL (1.3-3.2); Glucose 194 mg/dl (74-100); Total Protein,Serum 9.5 g/dl (6.3-8.2)
[2020-06-29 16:45] LABS: NT Pro Brain Natriuretic Pep. 290 pg/mL (0-450)
[2020-06-29 16:46] LABS: Appearance,Urine CLEAR (Clear); Bilirubin,Urine Negative (Negative); Blood, Urine TRACE-I (Negative); Color,Urine YELLOW (Yellow); Glucose,Urine (UA) Negative (Negative); Ketones,Urine Negative (Negative); Leukocyte Esterase,Urine 1+ (Negative); Microscopic, Urine URINE MICROSCOPIC (MICROSCOPIC); Nitrate,Urine Negative (Negative); Protein,Urine Negative (Negative); Urobilinogen,Urine 0.2 EU/dl (0.2)
--- NOTE | 2020-06-29 16:56 | PC.NURSE ---
pt on bedside commode at this time.
[2020-06-29 17:09] LABS: Coronavirus 19 IgG Antibody Negative (Negative); Coronavirus 19 IgM Antibody Negative (Negative)
--- NOTE | 2020-06-29 18:06 | PC.NURSE ---
Dr. Behzad de jesus
--- NOTE | 2020-06-29 18:10 | PC.NURSE ---
Notified of admission
--- NOTE | 2020-06-29 18:19 | PC.NURSE ---
CALLED FLOOR READY TO GIVE REPORT
--- NOTE | 2020-06-29 18:32 | HMH.EDABDPAI ---
ED Disposition Clinical Impression: Sepsis secondary to UTI, Pyelonephritis, Enteritis Disposition: Admitted As Inpatient Condition on Discharge: Good Time of Disposition: 17:45 - Critical Care Critical Care Time: Yes Attestation: On 06/29/20, the high probability of a clinically significant, sudden or life threatening deterioration of the following system(s) required my full and direct attention, intervention and personal management. The time I documented below is in addition to time spent performing reported procedures but includes the following listed in this critical care notation. Total Critical Care Time: 30 Vital system(s) involved:: Circulatory Failure My critical care processes included: Assessment & monitoring of V/S, Initial and Re-exams, Coordinating Care, Medication Orders and management Medical Decision Making - Medical Records Medical records reviewed: Yes: I reviewed the patient's medical records. - Sebastián Inquiry Pt receiving controlled substance: No Vital Signs: 06/29/20 14:42 06/29/20 15:00 06/29/20 16:07 Temperature 95.6 F L Temperature Source Rectal Pulse Rate Pulse Rate [Brachial] 119 H 104 H Respiratory Rate 20 Blood Pressure Blood Pressure [Right Arm] 79/59 L 84/45 L 81/44 L Blood Pressure Mean [Right Arm] 65 58 56 Blood Pressure Source [Right Arm] Blood Pressure Position Blood Pressure Position [Right Arm] Sitting Sitting 02 Sat by Pulse Oximetry 98 87 L Oxygen Delivery Method Room Air 06/29/20 16:30 06/29/20 17:00 06/29/20 17:30 Temperature Temperature Source Pulse Rate Pulse Rate [Brachial] 116 H 116 H Respiratory Rate 16 28 H Blood Pressure Blood Pressure [Right Arm] 112/59 L 111/54 L 136/60 Blood Pressure Mean [Right Arm] 76 73 85 Blood Pressure Source [Right Arm] Automatic Cuff Automatic Cuff Blood Pressure Position Blood Pressure Position [Right Arm] Sitting Sitting Sitting 02 Sat by Pulse Oximetry 95 98 Oxygen Delivery Method Room Air Room Air 06/29/20 18:00 06/29/20 18:53 Temperature 97.4 F L 98 F Temperature Source Oral Oral Pulse Rate 116 H Pulse Rate [Brachial] 121 H Respiratory Rate 22 20 Blood Pressure 132/62 Blood Pressure [Right Arm] 116/60 Blood Pressure Mean [Right Arm] 78 Blood Pressure Source [Right Arm] Automatic Cuff Blood Pressure Position Sitting Blood Pressure Position [Right Arm] Sitting 02 Sat by Pulse Oximetry 94 L Oxygen Delivery Method Room Air Room Air - Lab Data Lab Results 06/29/20 15:35: Urine Color Yellow, Urine Appearance Clear, Urine pH 6.0, Ur Specific [place] 1.020, Urine Protein Negative, Urine Glucose (UA) Negative, Urine Ketones Negative, Urine Blood Trace-i, Urine Nitrate Negative, Urine Bilirubin Negative, Urine Urobilinogen 0.2, Ur Leukocyte Esterase 1+ A, Urine RBC 3-5, Urine WBC 10-20, Ur Squamous Epith Cells 5-10 06/29/20 15:35: WBC 25.2 H*, RBC 5.16, Hgb 15.8, Hct 49.8 H, MCV 96.5, MCH 30.7, MCHC 31.9, RDW 14.2, Plt Count 306, MPV 8.7, Neut % (Auto) 83.3 H, Lymph % (Auto) 11.5, [place] % (Auto) 4.2, Eos % (Auto) 0.5, Baso % (Auto) 0.5, Neut # (Auto) 21.0 H, Lymph # (Auto) 2.9, [place] # (Auto) 1.1 H, Eos # (Auto) 0.1, Baso # (Auto) 0.1, Total Counted 100, Neutrophils % (Manual) 88 H, Lymphocytes % (Manual) 10, Monocytes % (Manual) 2, Platelet Estimate Normal, RBC Morphology Normal 06/29/20 15:35: Sodium 143, Potassium 3.9, Chloride 103, Carbon Dioxide 21 L, Anion Gap 22.9 H, BUN 27 H, Creatinine 1.90 H, Estimated Creat Clear 19, Estimated GFR 26 L, Est GFR ( Amer) 31 L, Glucose 194 H, Calcium 11.4 H, Magnesium 3.0 H, Total Bilirubin 0.8, AST 68 H, ALT 44, Alkaline Phosphatase 123, NT-Pro-B Natriuret Pep 290, Total Protein 9.5 H, Albumin 5.4 H, Globulin 4.1 H, Albumin/Globulin Ratio 1.3 06/29/20 15:35: Lactate 5.8 H 06/29/20 15:35: SARS-CoV-2 IgG Ab (Rapid) Negative, SARS-CoV-2 IgM Ab (Rapid) Negative Result diagrams: 06/29/20 15:35 06/29/20 15:35 Orders (Tests/Meds):
--- NOTE | 2020-06-29 18:55 | PC.NURSE ---
REPORT TO YUNI ZABALA
--- NOTE | 2020-06-29 19:00 | PC.NURSE ---
RECEIVED REPORT FROM Foreign MILLS RN. BROUGHT PT TO THE FLOOR AND ASSISTED HER TO HER BED W ASSISTX1. STEADY GAIT NOTED. PT TOLERATED WELL. PT IS CURRENTLY ON RA. ACTIVE BOWEL SOUNDS HEARD IN ALL 4 QUADRANTS. SOFT AND NONTENDER ABDOMEN. HAND DIVISION COMMANDER EQUAL. +2 PULSES NOTED THROUGHOUT. SKIN CDI. LUNG SOUNDS BILATERALLY CLEAR. CALL LIGHT WITHIN REACH. BED IN LOWEST POSITION. VSS. WILL CONTINUE TO MONITOR.
[2020-06-29 19:46] LABS: Reflex Lactic Add Lactic Reflex
[2020-06-29 20:29] LABS: Lactic Acid Follow Up (RFLX 1) 1.7 mmol/L (0.7-2.1)
[2020-06-29 20:42] LABS: POC Glucose,Bedside 111 (70-110)
[2020-06-30 04:00] VITALS: BP 116/66; PULSE 103; RESP 16; TEMP 37; O2SAT 95
--- NOTE | 2020-06-30 04:10 | PC.NURSE ---
A&OX4. PT. HAS NOT C/O N/V/D THIS SHIFT. HAS REPORTED POOR APPETITE AND WEAKNESS. AMBULATES TO [facility] WITH STANDBY ASSIST. NO PAIN OR SOA REPORTED.
[2020-06-30 06:26] LABS: POC Glucose,Bedside 101 (70-110)
--- NOTE | 2020-06-30 07:16 | HMH.HP ---
*Admission Date: 06/29/20 *Chief complaint: diarrhea *History of present illness: Ms. Pineda is a 79-year-old female with history of recurrent UTIs on daily prophylactic antibiotics (single dose of Bactrim), recent diagnosis of stage I lung cancer, and clinically significant hiatal hernia. She presented to the ER yesterday after acute onset of nausea vomiting and diarrhea. Denies any fever, dysuria, change in urinary frequency. Diarrhea is watery. Does have a reported history of C. difficile though nothing recently. Was unable to keep down oral intake. CT of abdomen obtained in the ER significant for dilated loops of small bowel and large liquid stool burden. UA suspicious with leukocyte esterase positive. Admitted for possible pyelonephritis versus enterocolitis. On assessment this morning, she states she is feeling a little bit better but had further episodes of emesis overnight. Continues to have loose watery stools. Tolerating small amounts of breakfast. Afebrile, stable on room air. [facility] History I have reviewed the patient's past medical history: Yes Medical History: Reports:: Cancer (lung, skin), Carotid Stenosis, Congestive Heart Failure, Coronary Artery Disease, Diabetes Mellitus Type 2, Gastroesophageal Reflux Disease(GERD), Hyperlipidemia, Hypertension, Valvular Heart Disease Denies:: Diabetes Mellitus Type 1, Internal Pacemaker, MRSA, Seizures *Have you ever received a pneumonia vaccine?: Yes *Have you received a flu vaccine this season?: Yes Other Medical History: Reports: Arthritis, Cataracts Laterality Cases: Bilateral: Breast Biopsy, Cataract, Tonsillectomy Other Surgeries: Yes: No Previous Surgery, Appendectomy, BSO, Cardiac Catheterization, Cholecystectomy, Colonoscopy, Coronary Stent, EGD, Hysterectomy-Total, Hysterectomy-Partial, Skin Cancer Excision, Tubal Ligation, Other. No: Pacemaker Amputation: No Fractures: No - *Social History Last grade of school completed: GED Smoking Status: Former smoker Tobacco Type: cigarettes #Yrs smoked (if former smoker): 50 Alcohol Intake: never Alcohol Intake Frequency:: other Substance Use Type: denies use *Occupational Status:: retired Housing: house Household Members: family *Travel in the last 8 weeks: None Family Hx:: Cancer, Heart Attack Review of Systems - Review of Systems Review of systems:: pertinent systems reviewed and negative unless documented below (14 point review of systems performed, pertinent positives and negatives as per HPI) Meds Home Medications Medication Instructions Recorded Confirmed Type aspirin 81 mg tablet,delayed 81 mg PO DAILY tab 11/06/17 06/29/20 History release lansoprazole 30 mg capsule,delayed 30 mg PO DAILY 11/06/17 06/29/20 History release ramipril 5 mg tablet 5 mg PO DAILY tab 11/06/17 06/29/20 History ascorbic acid (vitamin C) 500 mg 500 mg PO HS cap 08/13/18 06/29/20 History capsule Calcium Carbonate [Calcium] 600 mg PO HS 01/06/20 06/29/20 History Cholecalciferol (Vitamin D3) 125 mcg PO HS 01/06/20 06/29/20 History [Vitamin D3] Multivit-Min/Iron/Folic/Lutein 1 each PO DAILY 01/06/20 06/29/20 History [Centrum Silver Women Tablet] vit C 250 mg-E 200 unit-zinc 40 1 tab PO DAILY 01/24/20 06/29/20 History mg-copper 1 [id number] capsule Metoprolol Tartrate [Lopressor 25 mg PO BID 02/21/20 06/29/20 History 25mg tablet] rosuvastatin 10 mg tablet 10 mg PO DAILY #90 tab 04/14/20 06/29/20 Rx albuterol sulfate 90 mcg/actuation 1 inh INHALATION QID PRN #8.5 g 05/05/20 06/29/20 Rx aerosol inhaler Sulfamethoxazole/Trimethoprim 1 tab PO HS 06/29/20 06/29/20 History [Bactrim 400-80 mg (SS) Tablet] Allergies Allergy/AdvReac Type Severity Reaction Status Date / Time celecoxib [From CELEBREX] Allergy Severe RAPID Verified 05/05/20 14:36 HEART RATE rofecoxib [From VIOXX] Allergy Severe RAPID Verified 05/05/20 14:36 HEART RATE Penicillins [PENICILLINS] Allergy Unknown Verified
--- NOTE | 2020-06-30 07:22 | P.CONPHA_ITS ---
[facility] Pharmacy VTE Monitoring - Patient Demographics Admission date: 06/29/20 Report Date: 06/30/20 Time: 07:22 Allergies/Adverse Reactions: Patient Allergies celecoxib [From CELEBREX] Allergy (Severe, Verified 05/05/20 14:36) RAPID HEART RATE rofecoxib [From VIOXX] Allergy (Severe, Verified 05/05/20 14:36) RAPID HEART RATE Penicillins [PENICILLINS] Allergy (Unknown, Verified 05/05/20 14:36) tuberculin, purified protein deriva [TUBERCULIN,PURIF.PROT.DERIV.] Allergy (Unknown, Verified 05/05/20 14:36) POSITIVE REACTOR Height: 1.52 m Weight: 47.627 kg Patient Problems: Current Active Problems Sepsis secondary to UTI (Acute) Pyelonephritis (Acute) Enteritis (Acute) - VTE Risk Labs: VTE Related Lab Results Hgb 15.8 g/dL (12.2-16.2) 06/29/20 15:35 Hct 49.8 % (37.0-47.0) H 06/29/20 15:35 Plt Count 306 K/mm3 (142-424) 06/29/20 15:35 BUN 27 mg/dl (7-17) H 06/29/20 15:35 Creatinine 1.90 mg/dl (0.52-1.04) H 06/29/20 15:35 Estimated Creat Clear 19 mL/min (50-200) 06/29/20 15:35 Was VTE Risk Assessment Performed: Yes VTE Score: 5 VTE Risk Level: Low Risk - Prophylaxis VTE Prophylaxis Ordered?: Yes Types of VTE Prophylaxis: IPCS Thigh High Location of Applied Device: Bilateral Lower Extremeties
[2020-06-30 07:50] LABS: Basophils % 0.3 % (0.1-2.0); Eosinophils % 0.4 % (0.1-12.0); Hematocrit 35.4 % (37.0-47.0); Lymphocytes # 1.9 K/mm3 (0.7-4.5); Lymphocytes % 17.3 % (10-50); Mean Corpuscular HGB Conc 33.3 g/dL (31.8-35.4); Mean Corpuscular Hemoglobin 30.9 pg (27.0-31.2); Mean Corpuscular Volume 92.8 fl (81-99); Mean Platelet Volume 7.7 fl (7.4-10.4); Monocytes # 0.6 K/mm3 (0.1-1.0); Monocytes % 5.5 % (1.7-9.3); Neutrophils # 8.4 K/mm3 (1.8-7.8); Neutrophils % 76.6 % (37.0-80.0); Platelet Count 166 K/mm3 (142-424); Red Blood Count 3.82 M/mm3 (4.20-5.40); Red Cell Distribution Width 14.5 % (11.5-17.5)
[2020-06-30 07:51] VITALS: BP 112/52; PULSE 107; RESP 18; TEMP 36.7; O2SAT 96
[2020-06-30 07:52] LABS: Hemoglobin 11.8 g/dL (12.2-16.2)
[2020-06-30 08:00] VITALS: PULSE 107
[2020-06-30 08:02] LABS: Chloride 105 mmol/L (98-107); Potassium 4.7 mmoL/L (3.5-5.1); Sodium 139 mmol/L (136-145)
[2020-06-30 08:05] LABS: Anion Gap 10.7 mEq/L (5-15); Blood Urea Nitrogen 32 mg/dl (7-17); Carbon Dioxide 28 mmol/L (22.0-30.0); Creatinine Clearance Estimated 23 mL/min (50-200); Estimated Glomerular Filt Rate 34 ml/min (>60); GFR (African American) 41 ML/MIN (>60); Glucose 133 mg/dl (74-100); Lactic Acid 1.9 mmol/L (0.7-2.1)
[2020-06-30 08:14] LABS: Calcium 9.1 mg/dl (8.4-10.2)
[2020-06-30 15:39] VITALS: BP 133/68; PULSE 91; RESP 18; TEMP 36.8; O2SAT 93
[2020-06-30 17:26] LABS: POC Glucose,Bedside 87 (70-110)
--- NOTE | 2020-06-30 19:39 | PC.NURSE ---
SHE IS AOX4, ABLE TO MAKE NEEDS KNOWN TO STAFF, TOLERATING RA WELL WITH NO COMPLAINTS, NO N/V/D NOTED T/O SHIFT, HAS TOLERATED AMBULATION TO RESTROOM WITH STANDBY ASSIST. NO NEEDS AT THIS TIME.
[2020-06-30 20:00] VITALS: BP 133/60; PULSE 86; RESP 18; TEMP 37; O2SAT 96
[2020-06-30 20:59] LABS: POC Glucose,Bedside 120 (70-110)
[2020-06-30 21:12] LABS: POC Glucose,Bedside 107 (70-110)
[2020-07-01 03:53] VITALS: BP 126/55; PULSE 80; RESP 16; TEMP 36.4; O2SAT 91
--- NOTE | 2020-07-01 04:27 | PC.NURSE ---
Pt A&OX4 lungs CTA. pt denies SOA, pain, N/V/D. pt ambulates independently to BR. pt has rested quietly this shift.
[2020-07-01 05:06] VITALS: BMI 20.8
[2020-07-01 05:34] LABS: POC Glucose,Bedside 94 (70-110)
[2020-07-01 07:26] LABS: Basophils % 0.6 % (0.1-2.0); Eosinophils # 0.2 K/mm3 (0.0-0.4); Eosinophils % 2.7 % (0.1-12.0); Hematocrit 35.3 % (37.0-47.0); Hemoglobin 10.9 g/dL (12.2-16.2); Lymphocytes # 1.9 K/mm3 (0.7-4.5); Lymphocytes % 28.3 % (10-50); Mean Corpuscular HGB Conc 30.9 g/dL (31.8-35.4); Mean Corpuscular Hemoglobin 28.6 pg (27.0-31.2); Mean Corpuscular Volume 92.6 fl (81-99); Monocytes # 0.4 K/mm3 (0.1-1.0); Monocytes % 5.3 % (1.7-9.3); Neutrophils # 4.2 K/mm3 (1.8-7.8); Neutrophils % 63.1 % (37.0-80.0); Platelet Count 144 K/mm3 (142-424); Red Blood Count 3.81 M/mm3 (4.20-5.40); Red Cell Distribution Width 14.2 % (11.5-17.5); White Blood Count 6.7 K/mm3 (4.8-10.8)
[2020-07-01 07:38] LABS: Chloride 105 mmol/L (98-107); Potassium 4.1 mmoL/L (3.5-5.1); Sodium 141 mmol/L (136-145)
[2020-07-01 07:41] LABS: Blood Urea Nitrogen 23 mg/dl (7-17); Creatinine Clearance Estimated 29 mL/min (50-200); Estimated Glomerular Filt Rate 43 ml/min (>60); GFR (African American) 53 ML/MIN (>60)
[2020-07-01 07:42] LABS: Anion Gap 9.1 mEq/L (5-15); Calcium 9.5 mg/dl (8.4-10.2); Carbon Dioxide 31 mmol/L (22.0-30.0); Glucose 94 mg/dl (74-100)
[2020-07-01 08:00] VITALS: BP 121/54; PULSE 80; RESP 20; TEMP 36.8; O2SAT 94
--- NOTE | 2020-07-01 08:09 | HMH.DCSUM ---
General - General Admission date:: 06/29/20 Discharge date: 07/01/20 HPI HPI: Ms. Pineda is a 79-year-old female with history of recurrent UTIs on daily prophylactic antibiotics (single dose of Bactrim), recent diagnosis of stage I lung cancer, and clinically significant hiatal hernia. She presented to the ER yesterday after acute onset of nausea vomiting and diarrhea. Denies any fever, dysuria, change in urinary frequency. Diarrhea is watery. Does have a reported history of C. difficile though nothing recently. Was unable to keep down oral intake. CT of abdomen obtained in the ER significant for dilated loops of small bowel and large liquid stool burden. UA suspicious with leukocyte esterase positive. Admitted for possible pyelonephritis versus enterocolitis. On assessment this morning, she states she is feeling a little bit better but had further episodes of emesis overnight. Continues to have loose watery stools. Tolerating small amounts of breakfast. Afebrile, stable on room air. Hospital Course Hospital Course: Patient was admitted, IV fluids and broad-spectrum antibiotics were given because of the initial sepsis presentation. She improved dramatically over the next 24 hours. Urine cultures were negative, stool DNA testing is pending at this time, given her history of C. difficile she was placed on enteric pathogen treating antibiotics and did very well. Her diarrhea has essentially resolved this morning, she is able to eat well. She wishes to go home. She will be discharged home with treatment for enteritis including levofloxacin and Flagyl. I will see her on MondayJuly 04 with labs at that time. Lomotil for diarrhea. Objective Vital signs: Temp Pulse Resp BP Pulse Ox 97.6 F 80 16 126/55 L 91 L 07/01/20 03:53 07/01/20 03:53 07/01/20 03:53 07/01/20 03:53 07/01/20 03:53 no acute distress - *Routine HEENT Exam Head: Present: normocephalic Eye: Present: EOMI, PERRL ENT: Present: mucous membranes moist - *Routine Neck Exam Present: supple - *Routine Respiratory Exam Present: CTA bilaterally - *Routine Cardiovascular Exam Present: RRR - *Routine Abdominal Exam Present: soft, normoactive bowel sounds, tenderness Comments: Normal minimal left lower quadrant tenderness, no rebound, no guarding - *Routine Extremities Exam Absent: cyanosis, clubbing, edema - *Routine Skin Exam Present: warm. Absent: rash - Detailed Eye Exam Eyelids: Bilateral normal inspection Results Labs on day of discharge: Labs from last 24 hours 07/01/20 07/01/20 07/01/20 06:58 06:58 05:27 WBC 6.7 D RBC 3.81 L Hgb 10.9 L Hct 35.3 L MCV 92.6 MCH 28.6 MCHC 30.9 L RDW 14.2 Plt Count 144 MPV 8.0 Neut % (Auto) 63.1 Lymph % (Auto) 28.3 [place] % (Auto) 5.3 Eos % (Auto) 2.7 Baso % (Auto) 0.6 Neut # (Auto) 4.2 Lymph # (Auto) 1.9 [place] # (Auto) 0.4 Eos # (Auto) 0.2 Baso # (Auto) 0.0 Sodium 141 Potassium 4.1 Chloride 105 Carbon Dioxide 31 H Anion Gap 9.1 BUN 23 H D Creatinine 1.20 H Estimated Creat Clear 29 Estimated GFR 43 L Est GFR ( Amer) 53 L D Glucose 94 D POC Glucose 94 Lactate Calcium 9.5 06/30/20 06/30/20 06/30/20 20:58 18:11 11:41 WBC RBC Hgb Hct MCV MCH MCHC RDW Plt Count MPV Neut % (Auto) Lymph % (Auto) [place] % (Auto) Eos % (Auto) Baso % (Auto) Neut # (Auto) Lymph # (Auto) [place] # (Auto) Eos # (Auto) Baso # (Auto) Sodium Potassium Chloride Carbon Dioxide Anion Gap BUN Creatinine Estimated Creat Clear Estimated GFR Est GFR ( Amer) Glucose POC Glucose 107 120 H 87 Lactate Calcium 06/30/20 06/30/20 07:27 07:27 WBC RBC Hgb Hct MCV MCH MCHC RDW Plt Count MPV Neut % (Auto) Lymph
--- NOTE | 2020-07-01 09:16 | HMH.PHAINT ---
DISCHARGE COUNSELING COMPLETED ON PATIENT. NEW PRESCRIPTIONS INCLUDE LOMOTIL, LEVAQUIN, AND PO VANCOMYCIN. NEW PRESCRIPTIONS WERE SENT TO [facility]. PATIENT IS TO CONTINUE ALL OTHER HOME MEDICATIONS. PATIENT VERBALIZED UNDERSTANDING AND HAD NO QUESTIONS AT THIS TIME. -JOVI VANN, NATALIIAD
[2020-07-01 09:45] VITALS: BMI 20.7
== END 2020-07-01 09:30 | disposition home or self-care (01) | DRG 392 ==
LOC: ER 15:21 → 2ND 18:22
PROVIDERS: Internal Medicine Adolescent Medicine; Admitting Provider Family Medicine; Emergency Provider Student in an Organized Health Care Education/Training Program; PCP Internal Medicine Adolescent Medicine; Visit Provider Internal Medicine Adolescent Medicine
DX: K52.9 Noninfective gastroenteritis and colitis, unspecified (principal); C34.90 Malignant neoplasm of unspecified part of unspecified bronchus or lung; I11.0 Hypertensive heart disease with heart failure; I50.9 Heart failure, unspecified; I25.10 Atherosclerotic heart disease of native coronary artery without angina pectoris; Z95.5 Presence of coronary angioplasty implant and graft; Z87.891 Personal history of nicotine dependence; Z79.51 Long term (current) use of inhaled steroids; Z79.82 Long term (current) use of aspirin; Z79.899 Other long term (current) drug therapy; Z88.0 Allergy status to penicillin; Z88.7 Allergy status to serum and vaccine; Z88.1 Allergy status to other antibiotic agents
CPT/HCPCS: 36415; 71046; 74176; 80048; 80053; 81001; 82962; 83605; 83735; 83880; 85007; 85025; 86328; 87040; 87086; 87507; 96365; 96367; 99285; J2405; J3370

== ENCOUNTER → 2020-07-04 08:14 | Outpatient (CLI) | payer MEDICARE, BC, SELFPAY ==
[2020-07-04 08:26] LABS: Basophils % 0.7 % (0.1-2.0); Eosinophils # 0.3 K/mm3 (0.0-0.4); Eosinophils % 4.9 % (0.1-12.0); Hematocrit 39.9 % (37.0-47.0); Hemoglobin 12.9 g/dL (12.2-16.2); Lymphocytes # 1.9 K/mm3 (0.7-4.5); Lymphocytes % 38.4 % (10-50); Mean Corpuscular HGB Conc 32.3 g/dL (31.8-35.4); Mean Corpuscular Hemoglobin 30.3 pg (27.0-31.2); Mean Platelet Volume 8.5 fl (7.4-10.4); Monocytes # 0.3 K/mm3 (0.1-1.0); Monocytes % 6.1 % (1.7-9.3); Neutrophils # 2.5 K/mm3 (1.8-7.8); Neutrophils % 49.9 % (37.0-80.0); Platelet Count 196 K/mm3 (142-424); Red Blood Count 4.24 M/mm3 (4.20-5.40); Red Cell Distribution Width 14.4 % (11.5-17.5); White Blood Count 5.1 K/mm3 (4.8-10.8)
[2020-07-04 10:16] LABS: Anion Gap 13.1 mEq/L (5-15); Blood Urea Nitrogen 16 mg/dl (7-17); Calcium 9.9 mg/dl (8.4-10.2); Carbon Dioxide 30 mmol/L (22.0-30.0); Chloride 103 mmol/L (98-107); Estimated Glomerular Filt Rate 48 ml/min (>60); GFR (African American) 58 ML/MIN (>60); Glucose 133 mg/dl (74-100); Potassium 4.1 mmoL/L (3.5-5.1); Sodium 142 mmol/L (136-145)
== END ==
PROVIDERS: Visit Provider Internal Medicine Adolescent Medicine
DX: K52.9 Noninfective gastroenteritis and colitis, unspecified (principal)
CPT/HCPCS: 36415; 80048; 85025

== ENCOUNTER 2020-07-10 12:44 | Outpatient (CLI) | payer MEDICARE, BC, SELFPAY ==
--- NOTE | 2020-07-10 12:48 | XR_ITS ---
PROCEDURE: XR DEXA AXIAL SKELETON CLINICAL HISTORY: POST MENOPAUSAL COMPARISON: CR DEXAAX XR DEXA axial skeleton from 04/05/2018 FINDINGS: The right hip BMD is 0.600 with a T-score of -2.2. The left hip BMD is 0.594 with a T-score of -2.3. The lumbar spine BMD is 1.072 with a T-score of 0.2. Previously the lowest bone density was in the left femoral neck with a T-score of -2.6 IMPRESSION: This patient is considered osteopenic according to the World Health Organization criteria. Bone density is between 10 and 25 percent below young normal. Fracture risk is moderate. Treatment is advised. Based on these results a follow-up exam is recommended in 2 year. Dictated by: Curly Lemon MD 07/11/2020 08:07 Curly Lemon MD in [place] 07/11/2020 08:07
--- NOTE | 2020-07-10 12:48 | MM_ITS ---
PROCEDURE: MM DIG SCREENING MAMM BI W/CAD Digital Breast Tomosynthesis Included CLINICAL INDICATION: SCREENING There is no personal or family history of breast cancer. There has been a previous biopsy left breast for benign disease. COMPARISON: MG SCBI MM Dig screening mamm BI w/CAD from 04/05/2018 MG MM DIG SCREENING MAMM BI W/CAD from 05/03/2019 MG MM DIG MAMM DX UNILAT LT CAD from 06/21/2019 TECHNIQUE: Standard CC and MLO images and 3D Tomosynthesis was obtained. R2 CAD reviewed. FINDINGS: Moderate diffuse fibroglandular densities are seen in both breast. Again slightly asymmetric glandular elements are seen upper outer quadrant left breast. Arianna images are helpful in this type of breast parenchyma. There are few benign-appearing microcalcifications in each breast. There is faint arterial calcification in each breast. There is a small oval nodular density outer quadrant right breast at approximately the 9 o'clock position. This has been seen previously but appears to show a slight interval increase in size from the most recent study 05/03/2019. It is best demonstrated on the arianna images. Recommend the patient return for spot compression views and ultrasound for additional evaluation. IMPRESSION: Moderate diffuse with asymmetric lesion right breast BI-RAD Category: 0 Need Additional Imaging Evaluation FOLLOW-UP: IMM Immediate Follow-up Recommended (A letter has been sent to the patient regarding results of the study.) Dictated by: Dr. Jose Godfrey MD 07/14/2020 18:50 Dr. Jose Godfrey MD in [place] 07/14/2020 18:50
[2020-07-10 13:45] VITALS: BP 121/55; PULSE 74; RESP 18; TEMP 36.2; O2SAT 98
== END 2020-07-10 14:00 | disposition home or self-care (01) ==
LOC: INF 12:45
PROVIDERS: PCP Nurse Practitioner Family; Visit Provider Internal Medicine Adolescent Medicine
DX: Z12.31 Encounter for screening mammogram for malignant neoplasm of breast (principal); Z13.820 Encounter for screening for osteoporosis; M81.0 Age-related osteoporosis without current pathological fracture
CPT/HCPCS: 77063; 77067; 77080; 96372; J0897

== ENCOUNTER → 2020-07-30 14:17 | Outpatient (CLI) | payer MEDICARE, BC, SELFPAY ==
--- NOTE | 2020-07-30 14:19 | MM_ITS ---
PROCEDURE: MM DIG MAMM BI DX W/CAD Digital Breast Tomosynthesis Included CLINICAL INDICATION: ABN MAMM OF BOTH BREASTS Follow-up abnormal mammogram, follow-up breast nodule COMPARISON: MG DMSB DIG MAMM-SCREEN AXEL from 05/14/2014 MG SCBI MM Dig screening mamm BI w/CAD from 04/05/2018 MG MM DIG SCREENING MAMM BI W/CAD from 05/03/2019 MG MM DIG MAMM DX UNILAT LT CAD from 06/21/2019 MG MM DIG SCREENING MAMM BI W/CAD from 07/10/2020 US US BREAST RT COMPLETE from 07/30/2020 TECHNIQUE: Spot-compression views are obtained along with rolled views and right breast ultrasound. FINDINGS: There is persistent nodular density in the inferior aspect of the right breast. On the spot views this measures approximately 10 x 5 mm. This is in the lateral aspect of the right breast. This has been present dating back to 05/14/2014exam exam and overall does not appear significantly changed in size. Right breast ultrasound: At the 9 o'clock position there is a hypoechoic nodule at 5 x 3 mm with questionable posterior acoustical shadowing. At 9 o'clock there is an additional 3 mm hypoechoic nodule. IMPRESSION: Probably benign findings. The right breast nodule at 9 o'clock is overall not significantly changed. Ultrasound demonstrates 2 hypoechoic nodules at the 9 o'clock region 1 with questionable posterior acoustical shadowing. Suggest 6 month mammographic and sonographic follow-up. BI-RAD Category: 3 Probably Benign Finding Short Term Follow-up FOLLOW-UP: 6M 6Month Follow-up (A letter has been sent to the patient regarding results of the study.) Dictated by: Curly Lemon MD 08/14/2020 12:49 Curly Lemon MD in [place] 08/14/2020 12:49
== END ==
PROVIDERS: PCP Internal Medicine Adolescent Medicine; Visit Provider Internal Medicine Adolescent Medicine
DX: R92.8 Other abnormal and inconclusive findings on diagnostic imaging of breast (principal)
CPT/HCPCS: 76641; 77062; 77066; G0279

== ENCOUNTER → 2020-09-02 14:30 | Outpatient (CLI) | payer MEDICARE, BC, SELFPAY ==
--- NOTE | 2020-09-02 14:31 | CA_ITS ---
APPROVED REPORT Air Traffic Control Manager: Mae Palma RT(R) Laterality: Bilateral Indications: NICOLÁS Risk Factors Hypertension: history of smoking Doppler Spectral Velocity Analysis ECA (R) 212.70/20.50 cm/s ECA (L) 308.00/27.80 cm/s dICA (R) 102.30/25.90 cm/s dICA (L) 107.60/32.00 cm/s Gee (R) 110.20/25.60 cm/s Gee (L) 105.10/28.20 cm/s pICA (R) 161.40/28.20 cm/s pICA (L) 170.80/37.60 cm/s dCCA (R) 120.80/27.80 cm/s dCCA (L) 141.10/37.60 cm/s pCCA (R) 121.90/18.20 cm/s pCCA (L) 105.80/30.60 cm/s Vert (R) 77.60/20.00 cm/s Vert (L) 41.20/9.00 cm/s ICA/CCA 1.34 ICA/CCA 1.21 Findings Duplex evaluation demonstrates stenosis of the right proximal internal carotid artery in the range of 50-69% with PSV =140 cm/sec, EDV <100 cm/sec, and IC/CC Ratio <4.0. Duplex evaluation demonstrates stenosis of the left proximal internal carotid artery in the range of 50-69% with PSV =140 cm/sec, EDV <100 cm/sec, and IC/CC Ratio <4.0. Conclusion Duplex evaluation demonstrates stenosis of the right proximal internal carotid artery in the range of 50-69% with PSV =140 cm/sec, EDV <100 cm/sec, and IC/CC Ratio <4.0. Duplex evaluation demonstrates stenosis of the left proximal internal carotid artery in the range of 50-69% with PSV =140 cm/sec, EDV <100 cm/sec, and IC/CC Ratio <4.0. Electronically signed by : Curly Lemon MD 09/03/2020 19:02:04
== END ==
PROVIDERS: PCP Internal Medicine Adolescent Medicine; Visit Provider Urology
DX: A41.9 Sepsis, unspecified organism (principal); N39.0 Urinary tract infection, site not specified; I65.23 Occlusion and stenosis of bilateral carotid arteries
CPT/HCPCS: 93306; 93880

== ENCOUNTER → 2020-10-14 14:10 | Outpatient (POV) | payer MEDICARE, BC, SELFPAY | DX: Z00.00 Encounter for general adult medical examination without abnormal findings (principal) ==

== ENCOUNTER 2020-11-08 13:44 | Emergency (ER) | payer MEDICARE, BC, SELFPAY ==
[2020-11-08] VITALS (7 sets, daily range): BP systolic 83–146; BP diastolic 40–74; PULSE 73–117; RESP 16–20; TEMP 36.4–36.8; O2SAT 95–98; BMI 22.4; BMI 21.9
--- NOTE | 2020-11-08 14:18 | PC.NURSE ---
pt up to the restroom
--- NOTE | 2020-11-08 14:45 | PC.NURSE ---
UA requested from pt. Patient is unable to urinate at this time. I advised the pt to let us know when she feels the urge.
[2020-11-08 14:55] LABS: Alanine Aminotransferase 30 U/L (12-78); Albumin Level 4.9 g/dl (3.5-5.0); Albumin/Globulin Ratio 1.4 (1.1-1.8); Alkaline Phosphatase 572 U/L (38-126); Amylase 649 U/L (30-110); Anion Gap 14.3 mEq/L (5-15); Aspartate Amino Transferase 51 U/L (14-36); Bilirubin,Total 0.9 mg/dl (0.2-1.3); Blood Urea Nitrogen 26 mg/dl (7-17); Calcium 10.7 mg/dl (8.4-10.2); Carbon Dioxide 26 mmol/L (22.0-30.0); Chloride 106 mmol/L (98-107); Chol/HDL Ratio 3.8 (1-3.5); Cholesterol 191 mg/dl (140-200); Creatinine Clearance Estimated 31 mL/min (50-200); Estimated Glomerular Filt Rate 40 ml/min (>60); GFR (African American) 48 ML/MIN (>60); Globulin 3.6 g/dL (1.3-3.2); Glucose 167 mg/dl (74-100); HDL Cholesterol 50 mg/dl (40-60); Potassium 4.3 mmoL/L (3.5-5.1); Sodium 142 mmol/L (136-145); Total Protein,Serum 8.5 g/dl (6.3-8.2); Triglycerides 222 mg/dl (30-150); VLDL Cholesterol 44 mg/dL (0-40)
[2020-11-08 15:01] LABS: Basophils # 0.1 K/mm3 (0-0.2); Basophils % 0.4 % (0.1-2.0); Eosinophils # 0.1 K/mm3 (0.0-0.4); Eosinophils % 0.9 % (0.1-12.0); Hematocrit 40.9 % (37.0-47.0); Hemoglobin 13.5 g/dL (12.2-16.2); Lymphocytes # 1.9 K/mm3 (0.7-4.5); Lymphocytes % 12.3 % (10-50); Mean Corpuscular HGB Conc 33.1 g/dL (31.8-35.4); Mean Corpuscular Hemoglobin 29.8 pg (27.0-31.2); Mean Corpuscular Volume 90.1 fl (81-99); Mean Platelet Volume 8.4 fl (7.4-10.4); Monocytes # 0.3 K/mm3 (0.1-1.0); Monocytes % 1.8 % (1.7-9.3); Neutrophils # 12.8 K/mm3 (1.8-7.8); Neutrophils % 84.5 % (37.0-80.0); Platelet Count 242 K/mm3 (142-424); Red Blood Count 4.54 M/mm3 (4.20-5.40); Red Cell Distribution Width 14.1 % (11.5-17.5); White Blood Count 15.1 K/mm3 (4.8-10.8)
--- NOTE | 2020-11-08 15:02 | HMH.EDGENADL ---
ED Disposition Clinical Impression: C. difficile diarrhea Disposition: Home, Self-Care Condition on Discharge: Fair Instructions: DI for Clostridioides difficile Infection Additional Instructions: Vancomycin as prescribed. Zofran as needed for nausea and vomiting. See Dr. Hooker in his office on Monday. Do not take ramipril until you see him in the office and until further instructed by him. Return to the emergency department if persistent vomiting, worsening abdominal pain, intractable diarrhea, dizziness or faintness, high fevers greater than 101 degrees. Prescriptions: Vancomycin HCl 250 mg PO QID #80 cap Transmission Status: Received by [id number] Ondansetron [Zofran 4mg ODT] 4 mg PO TIDP PRN #10 tab.rapdis PRN Reason: Nausea And Vomiting Transmission Status: Pending to [facility] Referrals: Nam Hooker MD [Primary Care Provider] - - Critical Care Critical Care Time: No Attestation: On 11/08/20, the high probability of a clinically significant, sudden or life threatening deterioration of the following system(s) required my full and direct attention, intervention and personal management. The time I documented below is in addition to time spent performing reported procedures but includes the following listed in this critical care notation. Medical Decision Making - Sebastián Inquiry Pt receiving controlled substance: No Vital Signs: 11/08/20 14:15 11/08/20 14:50 11/08/20 15:00 Temperature 97.6 F Temperature Source Oral Pulse Rate 110 H 117 H Pulse Rate [Left Radial] 111 H Respiratory Rate 18 18 16 Blood Pressure 88/41 L 83/59 L Blood Pressure [Left Arm] 119/50 L Blood Pressure Mean [Left Arm] 73 Blood Pressure Source Automatic Cuff Blood Pressure Source [Left Arm] Automatic Cuff Blood Pressure Position Sitting Blood Pressure Position [Left Arm] Right Lateral 02 Sat by Pulse Oximetry 95 95 95 Oxygen Delivery Method Room Air Room Air 11/08/20 15:04 11/08/20 16:30 11/08/20 17:00 Temperature Temperature Source Pulse Rate 102 H 103 H 116 H Pulse Rate [Left Radial] Respiratory Rate 20 20 18 Blood Pressure 102/40 L 141/48 H 146/58 H Blood Pressure [Left Arm] Blood Pressure Mean [Left Arm] Blood Pressure Source Blood Pressure Source [Left Arm] Blood Pressure Position Blood Pressure Position [Left Arm] 02 Sat by Pulse Oximetry 96 97 97 Oxygen Delivery Method Room Air - Lab Data Lab Results 11/08/20 14:08: WBC 15.1 H, RBC 4.54, Hgb 13.5, Hct 40.9, MCV 90.1, MCH 29.8, MCHC 33.1, RDW 14.1, Plt Count 242, MPV 8.4, Neut % (Auto) 84.5 H, Lymph % (Auto) 12.3, [place] % (Auto) 1.8, Eos % (Auto) 0.9, Baso % (Auto) 0.4, Neut # (Auto) 12.8 H, Lymph # (Auto) 1.9, [place] # (Auto) 0.3, Eos # (Auto) 0.1, Baso # (Auto) 0.1, Total Counted 100, Neutrophils % (Manual) 76, Lymphocytes % (Manual) 21, Monocytes % (Manual) 3, Platelet Estimate Normal, RBC Morphology Normal 11/08/20 14:08: Sodium 142, Potassium 4.3, Chloride 106, Carbon Dioxide 26, Anion Gap 14.3, BUN 26 H, Creatinine 1.30 H, Estimated Creat Clear 31, Estimated GFR 40 L, Est GFR ( Amer) 48 L, Glucose 167 H, Calcium 10.7 H, Total Bilirubin 0.9, AST 51 H, ALT 30, Alkaline Phosphatase 572 H, Total Protein 8.5 H, Albumin 4.9, Globulin 3.6 H, Albumin/Globulin Ratio 1.4, Triglycerides 222 H, Cholesterol 191, LDL Cholesterol Direct 81.77 L, VLDL Cholesterol 44 H, HDL Cholesterol 50, Cholesterol/HDL Ratio 3.8 H, Amylase 649 H* 11/08/20 14:08: Lipase 213 11/08/20 15:18: Stl Aeromonas (PCR) Not detected, Stl C. cayetanensis PCR Not detected, Stool Rotavirus (PCR) Not detected, Stl Adenov F 40/41 PCR Not detected, Stool Astrovirus (PCR) Not detected, Stool Campylobacter PCR Not detected, Stl C.difficile Tox PCR Detected A, Stool Cryptosporidium PCR Not detected, Stl E.coli Shiga Tox PCR Not detected, Stool E coli O157 PCR Not detected, Stl Enterotoxigenic E PCR Not detected, Stool EPEC (PCR) Not
[2020-11-08 15:04] LABS: MANUAL DIFFERENTIAL MANUAL DIFFERENTIAL (MANUAL DIFF)
[2020-11-08 15:06] LABS: Direct LDL Cholesterol 81.77 mg/dL (100-129)
--- NOTE | 2020-11-08 15:11 | CT_ITS ---
PROCEDURE INFORMATION: Exam: CT Abdomen And Pelvis With Contrast Exam date and time: 11/08/2020 3:11 PM Age: 79 years old Clinical indication: Abdominal pain; Generalized; Prior surgery; Surgery type: Gallbladder, appendix, hysterectomy , tubal ligation , bladder tack and lower back surgery; Additional info: Abdominal pain and vomiting TECHNIQUE: Imaging protocol: Computed tomography of the abdomen and pelvis with contrast. Radiation optimization: All CT scans at this facility use at least one of these dose optimization techniques: automated exposure control; mA and/or kV adjustment per patient size (includes targeted exams where dose is matched to clinical indication); or iterative reconstruction. Contrast material: ISOVUE; Contrast volume: 75 ml; Contrast route: IV; COMPARISON: CT ABDOMEN PELVIS WO CON 06/29/2020 5:08 PM FINDINGS: Liver: There is a diffuse decrease in hepatic parenchymal density, consistent with mild fatty infiltration. Gallbladder and bile ducts: There has been a cholecystectomy. Pancreas: Normal. No ductal dilation. Spleen: Normal. No splenomegaly. Adrenal glands: Normal. No mass. Kidneys and ureters: Nonspecific low-density foci of the kidneys statistically favor benign cysts, no further follow-up needed, as large as 8 mm on the right. Nonobstructing punctate calcifications present within both kidneys. Stomach and bowel: Large hiatal hernia/partial intrathoracic stomach. Mild diverticulosis is present in the distal colon. Appendix: There has been a prior appendectomy. Intraperitoneal space: Normal. No significant fluid collection. Vasculature: The vasculature demonstrates diffuse moderate atherosclerotic calcification. Lymph nodes: Unremarkable. No enlarged lymph nodes. Urinary bladder: Unremarkable as visualized. Reproductive: There has been a hysterectomy. Bones/joints: Kyphoplasty changes noted at L1. The lumbar spine demonstrates mild degenerative changes at multiple levels. Soft tissues: Soft tissues are normal. IMPRESSION: 1. Large hiatal hernia/partial intrathoracic stomach. 2. Mild diverticulosis is present in the distal colon. COMMENTS: Consistent with the [employer]'s Incidental Findings Committee white paper (J Am Fauzia Radiol 2018): Any incidental renal lesion less than 1 cm or classified as too small to characterize, or any incidental cystic renal lesion characterized as simple-appearing, is likely benign. No follow-up imaging is recommended for these lesions per consensus recommendations based on imaging criteria.
[2020-11-08 15:12] LABS: Lipase 213 U/L (23-300)
[2020-11-08 15:16] LABS: Lymphocytes % 21 % (10-50); Monocytes % 3 % (2-9); Neutrophils % 76 % (42-76); Platelet Estimate Normal; RBC Morphology Normal; Total Cells Counted 100
[2020-11-08 15:26] LABS: Adenovirus F 40/41, stool Not Detected (NotDetected); Astrovirus Not Detected (NotDetected); Campylobacter Not Detected (NotDetected); Cryptosporidium Not Detected (NotDetected); Cyclospora Cayetanesis Not Detected (NotDetected); Entamoeba histolytica Not Detected (NotDetected); Enteroaggregative E coli Not Detected (NotDetected); Enteropathogenic E coli Not Detected (NotDetected); Enterotoxigenic E coli Not Detected (NotDetected); Giardia lamblia Not Detected (NotDetected); Norovirus Not Detected (NotDetected); Plesimonas Shigalloides, PCR Not Detected (NotDetected); Rotavirus A Not Detected (NotDetected); Salmonella, PCR Not Detected (NotDetected); Sapovirus Not Detected (NotDetected); Shiga-like toxin E coli Not Detected (NotDetected); Shigella Enterovasive E coli Not Detected (NotDetected); Vibrio Cholerae Not Detected (NotDetected); Vibrio, PCR Not Detected (NotDetected); Yersinia Entercolitica, PCR Not Detected (NotDetected)
--- NOTE | 2020-11-08 16:56 | PC.NURSE ---
pt return from CT
--- NOTE | 2020-11-08 16:58 | PC.NURSE ---
rad staff states pt c/o chest when in CT will perform a ekg on pt and notify ER
--- NOTE | 2020-11-08 17:15 | PC.NURSE ---
called for lab to draw cultures and lactic
--- NOTE | 2020-11-08 17:18 | ECG_ITS ---
APPROVED REPORT Exam: Resting ECG HR:112 bpm ECG Measurements Heart Rate 112 AXES AK 104 P QRSd 80 QRS 79 QT 468 T 107 QTc 638 Conclusion Sinus tachycardia with short AK ST & T wave abnormality, consider lateral ischemia Abnormal ECG Electronically signed by : Unruly Damon, 11/09/2020 18:14:01
[2020-11-08 17:46] LABS: Lactic Acid 1.4 mmol/L (0.7-2.1)
[2020-11-08 17:55] LABS: Occult Blood,Stool Positive (Negative)
[2020-11-08 18:07] LABS: Clostridium Difficile A/B, PCR Detected (NotDetected)
[2020-11-08 18:40] LABS: Microscopic, Urine URINE MICROSCOPIC (MICROSCOPIC)
[2020-11-08 18:42] LABS: Appearance,Urine SL CLOUDY (Clear); Blood, Urine Negative (Negative); Color,Urine DK YELLOW (Yellow); Glucose,Urine (UA) Negative (Negative); Ketones,Urine Negative (Negative); Leukocyte Esterase,Urine TRACE (Negative); Nitrate,Urine Negative (Negative); Protein,Urine Negative (Negative)
[2020-11-08 18:57] LABS: Bilirubin,Urine Negative (Negative)
[2020-11-08 19:04] LABS: Bacteria,Urine Trace /lpf; Transitional Epi Cells,Urine OCC #/lpf (0-3)
== END 2020-11-08 19:18 | disposition home or self-care (01) ==
PROVIDERS: Emergency Provider Emergency Medicine; PCP Internal Medicine Adolescent Medicine
DX: A04.72 Enterocolitis due to Clostridium difficile, not specified as recurrent (principal); I25.10 Atherosclerotic heart disease of native coronary artery without angina pectoris; E11.9 Type 2 diabetes mellitus without complications; K21.9 Gastro-esophageal reflux disease without esophagitis; E78.5 Hyperlipidemia, unspecified; I10 Essential (primary) hypertension; Z87.891 Personal history of nicotine dependence
CPT/HCPCS: 74177; 80053; 80061; 81001; 82150; 82272; 83605; 83690; 85007; 85025; 87040; 87506; 93005; 96365; 96375; 99284; G0328; Q9967

== ENCOUNTER 2021-01-08 09:50 | Outpatient (CLI) | payer MEDICARE, BC, SELFPAY ==
[2021-01-08 09:59] VITALS: BP 129/62; PULSE 75; RESP 17; TEMP 36.4; O2SAT 97
== END 2021-01-08 10:01 | disposition home or self-care (01) ==
LOC: INF 09:54
PROVIDERS: Visit Provider Internal Medicine Adolescent Medicine
DX: M85.89 Other specified disorders of bone density and structure, multiple sites (principal)
CPT/HCPCS: 96372; J0897

== ENCOUNTER → 2021-03-26 13:11 | Outpatient (CLI) | payer MEDICARE, BC, SELFPAY ==
--- NOTE | 2021-03-26 13:14 | CA_ITS ---
APPROVED REPORT Senior Military Analyst: Daphnie Zimmerman RVT Laterality: Bilateral Study Quality: Good Indications: Carotid stenosis Risk Factors Hypertension: Smoking Doppler Spectral Velocity Analysis ECA (R) 182.20/8.20 cm/s ECA (L) 196.40/21.20 cm/s dICA (R) 97.30/28.90 cm/s dICA (L) 121.10/34.10 cm/s Gee (R) 86.60/18.20 cm/s Gee (L) 117.60/32.90 cm/s pICA (R) 171.70/40.00 cm/s pICA (L) 179.90/41.20 cm/s dCCA (R) 81.30/18.20 cm/s dCCA (L) 80.00/17.60 cm/s pCCA (R) 72.70/12.80 cm/s pCCA (L) 89.40/21.20 cm/s Vert (R) 69.40/14.10 cm/s Vert (L) 54.10/11.80 cm/s ICA/CCA 2.11 ICA/CCA 2.25 Findings Study suggests 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 Study suggests 50-69% stenosis of the left internal cartoid artery Antegrade flow seen bilateral vertebral arteries. 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 Study suggests 50-69% stenosis of the left internal cartoid artery Antegrade flow seen bilateral vertebral arteries. Electronically signed by : Curly Lemon MD 03/26/2021 15:56:52
== END ==
PROVIDERS: PCP Internal Medicine Adolescent Medicine; Visit Provider Urology
DX: I65.23 Occlusion and stenosis of bilateral carotid arteries (principal)
CPT/HCPCS: 93880

== ENCOUNTER → 2021-03-31 12:55 | Outpatient (CLI) | payer MEDICARE, BC, SELFPAY ==
--- NOTE | 2021-03-31 12:58 | US_ITS ---
PROCEDURE: MM DIG MAMM BI DX W/CAD Digital Breast Tomosynthesis Included RIGHT BREAST ULTRASOUND COMPLETE LEFT BREAST ULTRASOUND COMPLETE CLINICAL INDICATION: ABN MAMM COMPARISON: MG DMSB DIG MAMM-SCREEN AXEL from 03/29/2013 MG DMSB DIG MAMM-SCREEN AXEL from 05/14/2014 MG [id number] DIG MAMM-DX UNI ADD VIEWS-RT from 06/09/2014 MG DMSB DIG MAMM-SCREEN AXEL from 05/22/2015 MG SCBI MM Dig screening mamm BI w/CAD from 04/05/2018 MG MM DIG SCREENING MAMM BI W/CAD from 05/03/2019 MG MM DIG MAMM DX UNILAT LT CAD from 06/21/2019 MG MM DIG SCREENING MAMM BI W/CAD from 07/10/2020 MG MM DIG MAMM BI DX W/CAD from 07/30/2020 US US BREAST RT COMPLETE from 07/30/2020 US US BREAST LT COMPLETE from 03/31/2021 US US BREAST RT COMPLETE from 03/31/2021 TECHNIQUE: Bilateral diagnostic mammogram with bilateral breast ultrasound. FINDINGS: The breasts are heterogeneously dense which may obscure small masses. Asymmetry noted in the retroareolar region which appears stable. Benign-appearing calcifications. Right breast: The 10 x 5 mm asymmetric density in the inferior aspect of the right breast does not appear significantly changed. A small calcification is so shaded within nodule unchanged. No malignant appearing mass or malignant-appearing microcalcification. Benign calcifications. Right breast ultrasound: 3 mm cyst at 6 o'clock near the nipple. At 9 o'clock there is an 8 x 6 mm bilobular hypoechoic nodule. This does appear solid and is consistent with the stable lobulated nodule noted on the mammogram and may represent a fibroadenoma. There is through enhancement of sound in the nodule is wider than tall. Probably not significantly changed from 07/30/2020 considering the difference in scanning technique. Left breast: Ring calcifications. Asymmetry medial aspect of the left breast not significantly changed. Left breast ultrasound: No cystic or solid lesions evident. IMPRESSION: Benign findings. No convincing evidence of malignancy. BI-RAD Category: 2 Benign Finding FOLLOW-UP: 1 YR 1 Year Follow-up (A letter has been sent to the patient regarding results of the study.) Dictated by: Curly Lemon MD 04/07/2021 13:05 Curly Lemon MD in [place] 04/07/2021 13:05
== END ==
PROVIDERS: PCP Internal Medicine Adolescent Medicine; Visit Provider Internal Medicine Adolescent Medicine
DX: Z01.812 Encounter for preprocedural laboratory examination (principal); Z20.822 Contact with and (suspected) exposure to COVID-19; R92.8 Other abnormal and inconclusive findings on diagnostic imaging of breast
CPT/HCPCS: 76641; 77062; 77066; C9803; G0279; U0003; U0005

== ENCOUNTER → 2021-03-31 15:06 | Outpatient (CLI) | payer MEDICARE, BC, SELFPAY | PROVIDERS: PCP Internal Medicine Adolescent Medicine; Visit Provider Nurse Practitioner | DX: Z20.822 Contact with and (suspected) exposure to COVID-19 (principal) | CPT/HCPCS: C9803; U0003; U0005 ==

== ENCOUNTER 2021-07-14 09:53 | Outpatient (CLI) | payer MEDICARE, BC, SELFPAY ==
[2021-07-14 10:10] VITALS: BP 154/68; PULSE 86; RESP 18; TEMP 35.9; O2SAT 99
== END 2021-07-14 10:10 | disposition home or self-care (01) ==
LOC: INF 09:54
PROVIDERS: PCP Internal Medicine Adolescent Medicine; Visit Provider Internal Medicine Adolescent Medicine
DX: M85.89 Other specified disorders of bone density and structure, multiple sites (principal)
CPT/HCPCS: 96372; J0897

== ENCOUNTER → 2021-08-16 13:03 | Outpatient (CLI) | payer OTHER, SELFPAY ==
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
== END ==
PROVIDERS: PCP Internal Medicine Adolescent Medicine; Visit Provider Nurse Practitioner Family
DX: M54.2 Cervicalgia (principal); M62.838 Other muscle spasm; G43.809 Other migraine, not intractable, without status migrainosus
CPT/HCPCS: 72050

== ENCOUNTER 2021-11-02 08:00 | Outpatient (RCR) | payer OTHER, MEDICARE, BC, SELFPAY ==
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
--- NOTE | 2021-09-14 08:25 | HMH.RHREAS ---
Rehab Reassessment Rehab OP Re-assessment Start: 09/14/21 08:17 Freq: Status: Active Protocol: Document 09/14/21 08:19 REBEKAHJayneRUBI (Rec: 09/14/21 08:23 PHORRUBI [id number]) Electronically Signed By Diego Wagner, PT 09/14/21 08:19 Rehab Re-assessment Subjective Subjective Pt states, My neck isn't as bad its a 5/10 today, but my arm (right) is worse. Its a 8/ 10. Objective Objective Notes AROM Cervical Spine (in deg): Flex= 0-45, Ext= 0-20, R SB= 0 -15, L SB= 0-20, R Rot= 0-45, L Rot= 0-45. MMT R UE: grossly 4/5 throughout the R shld. Assessment Progress Assessment Slower Than Expected Assessment Notes Pt has shown some improvement in pain overall with less headaches reported. However, she has slightly decreased cervical ROM this date and continued radicular symptoms throughout the R UE, especially in the hand. Patient goals met ST Goals Not Met ST,2,3,5 LT,2,3,4,5 ,6 Revised Goals none Plan Plan Continue per initial POC. Frequency of Therapy 2-3 x/wk Duration of therapy 4-6 wks Time and Billing Re-Eval Time 16 Re-Eval Billing Units 1 PHYSICIAN CERTIFICATION: I certify the specified therapy services for Megan Pineda are required, authorized, and reviewed every 30 days.
--- NOTE | 2021-10-11 10:35 | HMH.RHREAS ---
Rehab Reassessment Rehab OP Re-assessment Start: 09/14/21 08:17 Freq: Status: Active Protocol: Document 10/11/21 10:31 KEVIN (Rec: 10/11/21 10:35 PHOANGELA [id number]) Electronically Signed By Diego Wagner, PT 10/11/21 10:31 Rehab Re-assessment Subjective Subjective Pt reports pain today is 5/10 in the R side of neck. Yesterday I went to get up out of my chair and fell flat on my face, I don't know why. Objective Objective Notes AROM Cervical Spine (in deg): Flex= 0-40, Ext= 0-45, R SB= 0 -20, L SB= 0-25, R Rot= 0-55, L Rot= 0-55. MMT R UE: grossly 4/5 throughout the R shld. Assessment Progress Assessment Slower Than Expected Assessment Notes Pt has shown imporvements in AROM of cervical spine over the past 2-3 wks, but continues to have increased pain and cervicogenic dizziness. R UE radicular symptoms also remain. Patient goals met ST,2,3,4,5 Goals Not Met LT,2,3,4,5,6 Revised Goals none Plan Plan Continue per initial POC. Frequency of Therapy 2-3 x/wk Duration of therapy 4-6 wks Time and Billing Re-Eval Time 16 Re-Eval Billing Units 1 PHYSICIAN CERTIFICATION: I certify the specified therapy services for Megan Pineda are required, authorized, and reviewed every 30 days.
== END 2021-11-02 08:05 | disposition home or self-care (01) ==
LOC: PT 08:00
PROVIDERS: PCP Internal Medicine Adolescent Medicine; Visit Provider Nurse Practitioner Family
DX: M54.2 Cervicalgia (principal); M62.838 Other muscle spasm; V49.50XA Passenger injured in collision with unspecified motor vehicles in traffic accident, initial encounter
CPT/HCPCS: 97010; 97012; 97014; 97035; 97110; 97140; 97163; 97164; G0283

== ENCOUNTER 2021-11-13 20:52 | Emergency (ER) | payer MEDICARE, BC, OTHER, SELFPAY ==
[2021-11-13 20:46] VITALS: BP 143/92; PULSE 102; RESP 16; TEMP 36.6; O2SAT 97; BMI 21.1
--- NOTE | 2021-11-13 20:48 | XR_ITS ---
PROCEDURE INFORMATION: Exam: XR Chest Exam date and time: 11/13/2021 8:59 PM Age: 80 years old Clinical indication: Sternal or substernal pain; Prior surgery; Surgery type: Lung cancer; Additional info: Cp TECHNIQUE: Imaging protocol: XR of the chest. Views: 1 view. COMPARISON: CR XR CHEST 2V 06/29/2020 3:38 PM FINDINGS: Lungs: In the mid right lung there is irregular density which could indicate neoplasm versus pneumonia. Coarse interstitial lung markings likely chronic. COPD emphysema. Pleural spaces: Unremarkable. No pleural effusion. No pneumothorax. Heart/Mediastinum: Unremarkable. No cardiomegaly. Bones/joints: Unremarkable. IMPRESSION: In the right mid lung there is irregular density which could indicate neoplasm versus pneumonia. Recommend chest CT to further evaluate these findings
--- NOTE | 2021-11-13 20:48 | ECG_ITS ---
APPROVED REPORT Exam: Resting ECG HR:108 bpm ECG Measurements Heart Rate 108 AXES NV 160 P 75 QRSd 82 QRS 78 QT 311 T 75 QTc 374 Conclusion SINUS TACHYCARDIA Previously noted late R wave progression ABNORMAL ECG UNCONFIRMED REPORT Electronically signed by : Unruly Damon MD 11/14/2021 09:00:23
--- NOTE | 2021-11-13 20:49 | HMH.EDGENADL ---
ED Disposition Condition on Discharge: Good - Critical Care Critical Care Time: No <PiedadRebel - Last Filed: 11/13/21 20:49> Condition on Discharge: Good - Critical Care Critical Care Time: No <Brittni Peraza - Last Filed: 11/14/21 02:40> Clinical Impression: Chest pain Qualifiers: Chest pain type: unspecified Qualified Code(s): R07.9 - Chest pain, unspecified Disposition: Home, Self-Care Instructions: DI for Atypical Chest Pain Additional Instructions: Please follow-up with your primary care physician in 2 to 3 days for further management. Please also keep your appointment for repeat imaging of your known right-sided lung mass. Please return to the emergency department for any concerning symptoms such as recurrence of your chest pain, difficulty breathing or any other concerns. Referrals: Unruly Damon MD [Primary Care Provider] - Attestation: On 11/13/21, the high probability of a clinically significant, sudden or life threatening deterioration of the following system(s) required my full and direct attention, intervention and personal management. The time I documented below is in addition to time spent performing reported procedures but includes the following listed in this critical care notation. Medical Decision Making - Medical Records Medical records reviewed: Yes: I reviewed the patient's medical records. - Sebastián Inquiry Pt receiving controlled substance: No - ECG Data Tracing #1 I reviewed this ECG and interpreted as documented below: <PiedadRebel - Last Filed: 11/13/21 20:49> - Lab Data Result diagrams: 11/13/21 20:47 11/13/21 20:47 <Brittni Peraza - Last Filed: 11/14/21 02:40> Vital Signs: 11/13/21 20:46 11/13/21 20:58 11/13/21 21:00 Temperature 97.9 F Temperature Source Oral Pulse Rate 107 H 107 H Pulse Rate [Right] 102 H Respiratory Rate 16 11 L 13 Blood Pressure 143/92 H 150/73 H Blood Pressure [Right Arm] 143/92 H Blood Pressure Mean [Right Arm] 109 02 Sat by Pulse Oximetry 97 97 96 11/13/21 21:30 11/13/21 22:00 11/13/21 22:50 Temperature 97.9 F Temperature Source Oral Pulse Rate 107 H 99 H 98 H Pulse Rate [Right] Respiratory Rate 13 13 18 Blood Pressure 136/78 136/74 130/77 Blood Pressure [Right Arm] Blood Pressure Mean [Right Arm] 02 Sat by Pulse Oximetry 97 95 - Lab Data Lab Results 11/13/21 20:47: WBC 4.7 L, RBC 3.87 L, Hgb 11.9 L, Hct 35.3 L, MCV 91.2, MCH 30.8, MCHC 33.8, RDW 14.3, Plt Count 163, MPV 8.9, Neut % (Auto) 61.4, Lymph % (Auto) 28.7, [place] % (Auto) 5.1, Eos % (Auto) 3.5, Baso % (Auto) 1.3, Neut # (Auto) 2.9, Lymph # (Auto) 1.3, [place] # (Auto) 0.2, Eos # (Auto) 0.2, Baso # (Auto) 0.1 11/13/21 20:47: Sodium 139, Potassium 3.1 L, Chloride 104, Carbon Dioxide 27, Anion Gap 11.1, BUN 17, Creatinine 0.90, Estimated Creat Clear 35, Estimated GFR 60, Est GFR ( Amer) 73, Glucose 144 H, Calcium 9.3, Troponin I < 0.01 Orders (Tests/Meds): ED MEDICATIONS Discontinued Medications Generic Name Dose Route Start Last Admin Trade Name Freq PRN Reason Stop Dose Admin Lorazepam 0.5 mg 11/13/21 20:53 11/13/21 20:55 Lorazepam 2mg/Ml Vial IV 11/13/21 20:54 0.5 mg ONCE ONE Administration Nitroglycerin 0.5 gm 11/13/21 20:48 11/13/21 20:52 Nitroglycerin 1 Gm Ointment TD 11/13/21 20:49 Not Given ONCE ONE Nitroglycerin 1 gm 11/13/21 20:51 11/13/21 20:52 Nitroglycerin 1 Gm Ointment TD 11/13/21 20:52 1 gm ONCE ONE Administration Sodium Chloride 10 ml 11/13/21 20:53 Sodium Chloride 0.9% 10ml Vial IV 12/13/21 20:52 NEEDED PRN to Dilute Lorazepam inj ORDERS Category Date Time Status ECG Request by /Nse Stat Y 11/13/21 20:48 Ordered - ECG Data Tracing #[address] bernard ekg by ruth 108, non spec q waves, no st elev (Rebel Herbert) Medical Decision Narrative: Brittni Peraza: Patient care handed off to me pending
[2021-11-13 20:58] VITALS: BP 143/92; PULSE 107; RESP 11; O2SAT 97
[2021-11-13 21:00] VITALS: BP 150/73; PULSE 107; RESP 13; O2SAT 96
[2021-11-13 21:04] LABS: Basophils # 0.1 K/mm3 (0-0.2); Basophils % 1.3 % (0.1-2.0); Eosinophils # 0.2 K/mm3 (0.0-0.4); Eosinophils % 3.5 % (0.1-12.0); Hematocrit 35.3 % (37.0-47.0); Hemoglobin 11.9 g/dL (12.2-16.2); Lymphocytes # 1.3 K/mm3 (0.7-4.5); Lymphocytes % 28.7 % (10-50); Mean Corpuscular HGB Conc 33.8 g/dL (31.8-35.4); Mean Corpuscular Hemoglobin 30.8 pg (27.0-31.2); Mean Corpuscular Volume 91.2 fl (81-99); Mean Platelet Volume 8.9 fl (7.4-10.4); Monocytes # 0.2 K/mm3 (0.1-1.0); Monocytes % 5.1 % (1.7-9.3); Neutrophils # 2.9 K/mm3 (1.8-7.8); Neutrophils % 61.4 % (37.0-80.0); Platelet Count 163 K/mm3 (142-424); Red Blood Count 3.87 M/mm3 (4.20-5.40); Red Cell Distribution Width 14.3 % (11.5-17.5); White Blood Count 4.7 K/mm3 (4.8-10.8)
[2021-11-13 21:12] LABS: Anion Gap 11.1 mEq/L (5-15); Blood Urea Nitrogen 17 mg/dl (7-17); Calcium 9.3 mg/dl (8.4-10.2); Carbon Dioxide 27 mmol/L (22.0-30.0); Chloride 104 mmol/L (98-107); Creatinine Clearance Estimated 35 mL/min (50-200); Estimated Glomerular Filt Rate 60 ml/min (>60); GFR (African American) 73 ML/MIN (>60); Glucose 144 mg/dl (74-100); Potassium 3.1 mmoL/L (3.5-5.1); Sodium 139 mmol/L (136-145)
[2021-11-13 21:28] LABS: Troponin I < 0.01 ng/ml (0.00-0.034)
[2021-11-13 21:30] VITALS: BP 136/78; PULSE 107; RESP 13; O2SAT 97
[2021-11-13 22:00] VITALS: BP 136/74; PULSE 99; RESP 13; O2SAT 95
[2021-11-13 22:50] VITALS: BP 130/77; PULSE 98; RESP 18; TEMP 36.6; O2SAT 99
== END 2021-11-13 22:55 | disposition home or self-care (01) ==
PROVIDERS: Emergency Provider Emergency Medicine; PCP Internal Medicine Adolescent Medicine
DX: R07.9 Chest pain, unspecified (principal); I25.10 Atherosclerotic heart disease of native coronary artery without angina pectoris; E11.9 Type 2 diabetes mellitus without complications; K21.9 Gastro-esophageal reflux disease without esophagitis; I10 Essential (primary) hypertension; E78.5 Hyperlipidemia, unspecified; Z87.891 Personal history of nicotine dependence; Z79.899 Other long term (current) drug therapy
CPT/HCPCS: 71045; 80048; 84484; 85025; 93005; 99284

== ENCOUNTER → 2021-11-19 07:18 | Outpatient (CLI) | payer MEDICARE, BC, SELFPAY | PROVIDERS: PCP Internal Medicine Adolescent Medicine; Visit Provider Nurse Practitioner Family | DX: E78.5 Hyperlipidemia, unspecified (principal); I11.9 Hypertensive heart disease without heart failure; I65.29 Occlusion and stenosis of unspecified carotid artery; I20.8 Other forms of angina pectoris | CPT/HCPCS: 78452; 93017; 93306; A9502; J2785 ==

== ENCOUNTER → 2021-11-30 10:37 | Outpatient (CLI) | payer MEDICARE, BC, SELFPAY ==
[2021-11-30 11:30] LABS: Basophils # 0.1 K/mm3 (0-0.2); Basophils % 0.7 % (0.1-2.0); Eosinophils # 0.1 K/mm3 (0.0-0.4); Eosinophils % 1.4 % (0.1-12.0); Hematocrit 36.3 % (37.0-47.0); Hemoglobin 11.6 g/dL (12.2-16.2); Lymphocytes # 1.9 K/mm3 (0.7-4.5); Lymphocytes % 19.2 % (10-50); Mean Corpuscular Hemoglobin 29.9 pg (27.0-31.2); Mean Corpuscular Volume 93.4 fl (81-99); Monocytes # 0.4 K/mm3 (0.1-1.0); Monocytes % 4.1 % (1.7-9.3); Neutrophils # 7.3 K/mm3 (1.8-7.8); Neutrophils % 74.5 % (37.0-80.0); Platelet Count 194 K/mm3 (142-424); Red Blood Count 3.89 M/mm3 (4.20-5.40); Red Cell Distribution Width 13.8 % (11.5-17.5); White Blood Count 9.8 K/mm3 (4.8-10.8)
[2021-11-30 11:48] LABS: Chloride 103 mmol/L (98-107); Sodium 139 mmol/L (136-145)
[2021-11-30 11:51] LABS: Blood Urea Nitrogen 19 mg/dl (7-17); Calcium 9.6 mg/dl (8.4-10.2); Carbon Dioxide 25 mmol/L (22.0-30.0); Estimated Glomerular Filt Rate 39 ml/min (>60); GFR (African American) 48 ML/MIN (>60); Glucose 192 mg/dl (74-100)
== END ==
PROVIDERS: Nurse Practitioner Family; PCP Internal Medicine Adolescent Medicine; Visit Provider Internal Medicine
DX: R06.00 Dyspnea, unspecified; C34.90 Malignant neoplasm of unspecified part of unspecified bronchus or lung; E78.2 Mixed hyperlipidemia; I11.9 Hypertensive heart disease without heart failure; I20.8 Other forms of angina pectoris; I65.23 Occlusion and stenosis of bilateral carotid arteries; R53.83 Other fatigue; R94.39 Abnormal result of other cardiovascular function study; I63.9 Cerebral infarction, unspecified
CPT/HCPCS: 36415; 80048; 85025; C9803; U0003; U0005

== ENCOUNTER 2021-12-01 08:33 | Day surgery (SDC) | payer MEDICARE, BC, SELFPAY ==
[2021-12-01] VITALS (12 sets, daily range): BP systolic 114–148; BP diastolic 56–78; PULSE 66–83; RESP 17–19; O2SAT 97–100; BMI 21.1
--- NOTE | 2021-12-01 07:04 | IR_ITS ---
APPROVED REPORT Patient Location: Outpatient PROCEDURES Left heart catheterization Left ventriculogram Selective coronary angiogram INDICATION Known coronary artery disease, Recurrent angina pectoris, Abnormal Myoview Informed consent was obtained prior to the procedure. COMPLICATIONS None Estimated Blood Loss: Less than 10 mls TECHNIQUE One percent lidocaine used to anesthetize the right anterior aspect of the wrist. The right radial artery was accessed via the Seldinger technique. A 6 Armenian sheath was placed in the right radial artery. 2.5 mg of verapamil, 800 mcg of nitroglycerin, 1mg Lidocaine and 5000 U Heparin were given through the arterial sheath. The papa catheter was also used to perform left heart catheterization, left ventriculogram and selective coronary angiogram. At the end of the procedure the sheath was removed good hemostasis was achieved using Traclet band, patient was transferred to the postop holding area in stable condition. ANGIOGRAPHIC RESULTS The left main artery Normal The left anterior descending artery Has a stent in the proximal segment which is widely patent free of in-stent restenosis with excellent proximal distal transitioning. The remaining LAD has mild 10 to 20% atheromatous plaque The circumflex artery Nondominant yet still large vessel with diffuse 10 to 20% luminal irregularities The right coronary artery Is a dominant vessel has proximal 10 to 20% stenosis. The proximal midportion is highly tortuous. Distal to the tortuosity there is a mid vessel stent which is widely patent with 30% concentric in-stent restenosis along a tortuous bend. Distally there are 20% luminal irregularities The MURPHY ventriculogram reveals Hyperdynamic 70% The left ventricular end-diastolic pressure 15 mmHg IMPRESSION Coronary artery disease as described above Hyperdynamic ventricle Borderline elevated LVEDP PLAN 1. Medical management for diastolic dysfunction and coronary artery disease 2. Risk factor modification Electronically signed by : Arslan Hobbs MD 12/01/2021 11:39:54
== END 2021-12-01 14:28 | disposition home or self-care (01) ==
LOC: CATHLAB 08:35
PROVIDERS: PCP Internal Medicine Adolescent Medicine; Visit Provider Internal Medicine
DX: E78.2 Mixed hyperlipidemia; I11.9 Hypertensive heart disease without heart failure; I65.23 Occlusion and stenosis of bilateral carotid arteries; R06.00 Dyspnea, unspecified; R94.39 Abnormal result of other cardiovascular function study; I25.118 Atherosclerotic heart disease of native coronary artery with other forms of angina pectoris
CPT/HCPCS: 93458; 99152; C1725; C1769; J1644; Q9967

== ENCOUNTER 2022-01-05 14:17 | Emergency (ER) | payer MEDICARE, BC, SELFPAY ==
[2022-01-05 15:02] VITALS: BP 132/80; PULSE 78; RESP 16; TEMP 36.6; O2SAT 98; BMI 19.9
--- NOTE | 2022-01-05 15:08 | HMH.EDUTC ---
[facility] [place] Clinical Impression: COVID-19 Disposition: Home, Self-Care Condition on Discharge: Good Instructions: DI for COVID-19 (Suspected or Confirmed ), Preventing the Spread of Coronavirus Discharge Instructions Additional Instructions: Drink plenty of fluids. Take tylenol for pain or fever. Return if you begin to have difficulty breathing. Follow up with your regular doctor. GO TO THE ER FOR ANY WORSENING SYMPTOMS Prescriptions: Ondansetron [Zofran 4mg ODT] 4 mg PO Q8HP PRN #20 tab PRN Reason: Nausea Transmission Status: Received by [id number] Referrals: Unruly Damon MD [Primary Care Provider] - Time of Disposition: 15:11 Medical Decision Making - Medical Records Medical records reviewed: No: I reviewed the patient's medical records. - Sebastián Inquiry Pt receiving controlled substance: No Vital Signs: 01/05/22 15:02 01/05/22 15:12 Temperature 97.9 F 97.8 F Temperature Source Oral Pulse Rate 78 Pulse Rate [Left] 78 Respiratory Rate 16 16 Blood Pressure 132/80 Blood Pressure [Right Arm] 132/80 Blood Pressure Mean [Right Arm] 97 02 Sat by Pulse Oximetry 98 Orders (Tests/Meds): ORDERS Category Date Time Status Covid-19 Nasal PCR ([facility]) Routine Lab 01/05/22 15:02 [place] [facility] [place] - General Stated complaint: home test/positive Time Seen by Provider: 01/05/22 15:10 Description of Symptoms (Recalled from Triage Doc. by RN): patient comes in for covid test. patient states that she has no symptoms. HEENT Symptoms (Recalled from RN notes): No Resp Symptoms (Recalled from RN notes): No Skin Symptoms (Recalled from RN notes): No MS Symptoms (Recalled from RN notes): No Functional Status (Recalled from RN notes): wnl - History of Present Illness Provider Complaint: She has been exposed to covid 3 days ago. She denies any symptoms. - Related Data Home Medications Medication Instructions Recorded Confirmed aspirin 81 mg tablet,delayed 81 mg PO DAILY tab 11/06/17 12/16/21 release lansoprazole 30 mg capsule,delayed 30 mg PO DAILY 11/06/17 12/16/21 release Cholecalciferol (Vitamin D3) 125 mcg PO HS 01/06/20 12/16/21 [Vitamin D3] vit C 250 mg-vit E 90 mg-zinc 40 1 tab PO DAILY 01/24/20 12/16/21 mg-copper 1 [id number] capsule Isosorbide Mononitrate [Isosorbide 30 mg PO DAILY 12/01/21 12/16/21 Mononitrate ER] Metoprolol Succinate [Metoprolol 50 mg PO DAILY 12/01/21 12/16/21 Succinate 50mg Tablet*] Rosuvastatin Calcium See Rx Instructions .ROUTE .COMPLEX 12/01/21 12/16/21 Previous Rx's Medication Instructions Recorded albuterol sulfate 90 mcg/actuation 1 inh IH QID PRN #8.5 g 05/05/20 aerosol inhaler ramipril 5 mg capsule 5 mg PO DAILY #90 cap 08/26/20 Ondansetron [Zofran 4mg ODT] 4 mg PO Q8HP PRN #20 tab 01/05/22 Allergies Allergy/AdvReac Type Severity Reaction Status Date / Time celecoxib [From CELEBREX] Allergy Severe RAPID Verified 01/05/22 15:03 HEART RATE rofecoxib [From VIOXX] Allergy Severe RAPID Verified 01/05/22 15:03 HEART RATE Penicillins [PENICILLINS] Allergy Unknown Verified 01/05/22 15:03 tuberculin, purified protein Allergy Unknown POSITIVE Verified 01/05/22 15:03 deriva REACTOR [TUBERCULIN,PURIF.PROT.DERIV.] - Worker's Comp Is this a Worker's Comp case?: No [facility] History - Hepatitis A Screen Attestation statement:: This patient has been screened for Hepatitis A risk factors. I have reviewed the patient's past medical history: Yes Medical History: Reports:: Cancer, Carotid Stenosis, Congestive Heart Failure, Coronary Artery Disease, Diabetes Mellitus Type 2, Gastroesophageal Reflux Disease(GERD), Hyperlipidemia, Hypertension, Valvular Heart Disease Denies:: Diabetes Mellitus Type 1, Internal Pacemaker, MRSA, Seizures Other Medical History: Reports: Arthritis, Cataracts, Chemotherapy, Radiation Therapy Comment: HYPERTENSION. HYPERCHOLESTEROLEM
[2022-01-05 15:12] VITALS: BP 132/80; PULSE 78; RESP 16; TEMP 36.6
== END 2022-01-05 15:14 | disposition home or self-care (01) ==
PROVIDERS: Emergency Provider Nurse Practitioner Family; PCP Internal Medicine Adolescent Medicine
DX: U07.1 COVID-19 (principal); I10 Essential (primary) hypertension; E11.8 Type 2 diabetes mellitus with unspecified complications
CPT/HCPCS: 99212; C9803; G0463; U0003; U0005

== ENCOUNTER 2022-01-13 09:39 | Outpatient (CLI) | payer MEDICARE, BC, SELFPAY ==
[2022-01-13 09:56] VITALS: BP 121/71; PULSE 68; RESP 18; TEMP 36.4; O2SAT 100
== END 2022-01-13 10:20 | disposition home or self-care (01) ==
LOC: INF 09:41
PROVIDERS: PCP Internal Medicine Adolescent Medicine; Visit Provider Family Medicine
DX: M85.89 Other specified disorders of bone density and structure, multiple sites (principal)
CPT/HCPCS: 96372; J0897

== ENCOUNTER 2022-02-21 10:55 | Emergency (ER) | payer MEDICARE, BC, SELFPAY ==
[2022-02-21] VITALS (8 sets, daily range): BP systolic 152–186; BP diastolic 72–95; PULSE 77–92; RESP 18; TEMP 36.4; O2SAT 96–99; BMI 19.1
--- NOTE | 2022-02-21 11:09 | CT_ITS ---
FINAL REPORT TECHNIQUE: Axial images were performed through the brain.This study was performed with techniques to keep radiation doses as low as reasonably achievable, (ALARA). Individualized dose reduction techniques using automated exposure control or adjustment of mA and/or kV according to the patient''s size were employed. CLINICAL HISTORY: not remembering things from this morning poss stroke FINDINGS: There is mild, diffuse atrophy. The ventricles are normal in size for the degree of atrophy. There is decreased attenuation the deep white matter consistent with chronic small vessel ischemic change. Physiologic calcifications are seen in the basal ganglia. There is no extra-axial fluid or midline shift. There is no evidence of acute hemorrhage or mass. IMPRESSION: Atrophy and chronic findings. No acute intracranial process. Reviewed, Interpreted and Dictated by Owen Atkins MD Transcribed by Leida Sánchez Authenticated and [facility]
--- NOTE | 2022-02-21 11:13 | PC.NURSE ---
Addendum entered by Zora Waller RN 02/21/22 11:13: stroke protocol, spoke with storm in rad Original Note: notified rad of CT order.
[2022-02-21 11:56] LABS: Basophils % 0.6 % (0.1-2.0); Eosinophils # 0.5 K/mm3 (0.0-0.4); Eosinophils % 6.9 % (0.1-12.0); Hematocrit 38.1 % (37.0-47.0); Hemoglobin 12.1 g/dL (12.2-16.2); Lymphocytes % 30.7 % (10-50); Mean Corpuscular HGB Conc 31.8 g/dL (31.8-35.4); Mean Corpuscular Hemoglobin 29.7 pg (27.0-31.2); Mean Corpuscular Volume 93.6 fl (81-99); Mean Platelet Volume 8.5 fl (7.4-10.4); Monocytes # 0.4 K/mm3 (0.1-1.0); Monocytes % 5.6 % (1.7-9.3); Neutrophils # 3.6 K/mm3 (1.8-7.8); Neutrophils % 56.2 % (37.0-80.0); Platelet Count 190 K/mm3 (142-424); Red Blood Count 4.07 M/mm3 (4.20-5.40); Red Cell Distribution Width 14.6 % (11.5-17.5); White Blood Count 6.5 K/mm3 (4.8-10.8)
--- NOTE | 2022-02-21 12:00 | PC.NURSE ---
Rounded on patient, gave her a warm blanket, she reports no other needs at this time. Gave her family a cup of ice water. Call light within reach. Explained to the family that we had several critical patients in the ER so it may be a bit before the ER MD comes in. They have no other questions.
[2022-02-21 12:01] LABS: Blood Urea Nitrogen 14 mg/dl (7-17); Calcium 9.3 mg/dl (8.4-10.2); Carbon Dioxide 31 mmol/L (22.0-30.0); Chloride 106 mmol/L (98-107); Creatinine Clearance Estimated 29 mL/min (50-200); Estimated Glomerular Filt Rate 48 ml/min (>60); GFR (African American) 58 ML/MIN (>60); Glucose 96 mg/dl (74-100); Sodium 141 mmol/L (136-145)
[2022-02-21 12:21] LABS: INR 1.01 (0.9-1.1); Prothrombin Time 11.4 seconds (10.1-12.5)
[2022-02-21 12:25] LABS: Microscopic, Urine URINE MICROSCOPIC (MICROSCOPIC)
[2022-02-21 12:27] LABS: Appearance,Urine CLEAR (Clear); Bilirubin,Urine Negative (Negative); Blood, Urine Negative (Negative); Color,Urine YELLOW (Yellow); Glucose,Urine (UA) Negative (Negative); Ketones,Urine Negative (Negative); Leukocyte Esterase,Urine 1+ (Negative); Nitrate,Urine Negative (Negative); PH,Urine 5.5 (5.0-8.5); Protein,Urine Negative (Negative); Urobilinogen,Urine 0.2 EU/dl (0.2)
[2022-02-21 12:48] LABS: Bacteria,Urine Trace /lpf
--- NOTE | 2022-02-21 12:48 | HMH.EDGENADL ---
ED Disposition Clinical Impression: Altered mental status Qualifiers: Altered mental status type: unspecified Qualified Code(s): R41.82 - Altered mental status, unspecified Urinary tract infection Qualifiers: Urinary tract infection type: acute cystitis Hematuria presence: without hematuria Qualified Code(s): N30.00 - Acute cystitis without hematuria Disposition: Home, Self-Care Condition on Discharge: Good Instructions: DI for Altered Mental Status Additional Instructions: Rest and drink plenty fluids. Off work for the next 3 days. Avoid exertion. Do not drive for the next 3 days. Prescriptions: cephALEXin [Cephalexin 500mg Tab] 500 mg PO Q8 #30 tab Transmission Status: Pending to [id number] Referrals: Unruly Damon MD [Primary Care Provider] - - Critical Care Critical Care Time: No Attestation: On 02/21/22, the high probability of a clinically significant, sudden or life threatening deterioration of the following system(s) required my full and direct attention, intervention and personal management. The time I documented below is in addition to time spent performing reported procedures but includes the following listed in this critical care notation. Medical Decision Making - Medical Records Medical records reviewed: Yes: I reviewed the patient's medical records. - Sebastián Inquiry Pt receiving controlled substance: No Vital Signs: 02/21/22 10:56 02/21/22 11:30 02/21/22 11:39 Temperature 97.6 F Temperature Source Oral Pulse Rate 89 84 Pulse Rate [Right Radial] 92 H Respiratory Rate 18 Blood Pressure 185/95 H 186/95 H Blood Pressure [Right Arm] 177/72 H Blood Pressure Mean 121 125 Blood Pressure Mean [Right Arm] 107 Blood Pressure Source [Right Arm] Automatic Cuff Blood Pressure Position [Right Arm] Sitting 02 Sat by Pulse Oximetry 96 98 99 Oxygen Delivery Method Room Air 02/21/22 12:00 02/21/22 12:30 02/21/22 13:00 Temperature Temperature Source Pulse Rate 87 77 82 Pulse Rate [Right Radial] Respiratory Rate Blood Pressure 178/81 H 152/79 H 176/83 H Blood Pressure [Right Arm] Blood Pressure Mean Blood Pressure Mean [Right Arm] Blood Pressure Source [Right Arm] Blood Pressure Position [Right Arm] 02 Sat by Pulse Oximetry 98 97 98 Oxygen Delivery Method 02/21/22 13:30 Temperature Temperature Source Pulse Rate 85 Pulse Rate [Right Radial] Respiratory Rate Blood Pressure 164/77 H Blood Pressure [Right Arm] Blood Pressure Mean Blood Pressure Mean [Right Arm] Blood Pressure Source [Right Arm] Blood Pressure Position [Right Arm] 02 Sat by Pulse Oximetry 97 Oxygen Delivery Method - Lab Data Lab Results 02/21/22 11:35: WBC 6.5, RBC 4.07 L, Hgb 12.1 L, Hct 38.1, MCV 93.6, MCH 29.7, MCHC 31.8, RDW 14.6, Plt Count 190, MPV 8.5, Neut % (Auto) 56.2, Lymph % (Auto) 30.7, [place] % (Auto) 5.6, Eos % (Auto) 6.9, Baso % (Auto) 0.6, Neut # (Auto) 3.6, Lymph # (Auto) 2.0, [place] # (Auto) 0.4, Eos # (Auto) 0.5 H, Baso # (Auto) 0.0 02/21/22 11:35: PT 11.4, INR 1.01 02/21/22 11:35: Sodium 141, Potassium 5.0, Chloride 106, Carbon Dioxide 31 H, Anion Gap 9.0, BUN 14, Creatinine 1.10 H, Estimated Creat Clear 29, Estimated GFR 48 L, Est GFR ( Amer) 58 L, Glucose 96, Calcium 9.3 02/21/22 12:13: Urine Color Yellow, Urine Appearance Clear, Urine pH 5.5, Ur Specific [place] 1.020, Urine Protein Negative, Urine Glucose (UA) Negative, Urine Ketones Negative, Urine Blood Negative, Urine Nitrate Negative, Urine Bilirubin Negative, Urine Urobilinogen 0.2, Ur Leukocyte Esterase 1+ A, Urine RBC None, Urine WBC 5-10, Ur Squamous Epith Cells 3-5, Urine Bacteria Trace Result diagrams: 02/21/22 11:35 02/21/22 11:35 Orders (Tests/Meds): ED MEDICATIONS Generic Name Dose Route Start Last Admin Trade Name Freq PRN Reason Stop Dose Admin Sodium Chloride 10 ml 02/21/22 11:44 Sodium Chloride 0.9% 10ml Flush Syringe IV 03/23/22 11:43
--- NOTE | 2022-02-21 13:53 | PC.NURSE ---
Rounded on Pt at this time. pt is resting comfortably in the bed. No needs voiced
== END 2022-02-21 14:15 | disposition home or self-care (01) ==
PROVIDERS: Emergency Provider Emergency Medicine; PCP Internal Medicine Adolescent Medicine
DX: N30.00 Acute cystitis without hematuria (principal); R06.02 Shortness of breath; R41.82 Altered mental status, unspecified; R20.2 Paresthesia of skin; I11.0 Hypertensive heart disease with heart failure; I50.9 Heart failure, unspecified; I34.1 Nonrheumatic mitral (valve) prolapse; K21.9 Gastro-esophageal reflux disease without esophagitis; E78.00 Pure hypercholesterolemia, unspecified; I25.119 Atherosclerotic heart disease of native coronary artery with unspecified angina pectoris; M19.90 Unspecified osteoarthritis, unspecified site; Z79.51 Long term (current) use of inhaled steroids; Z79.52 Long term (current) use of systemic steroids; Z88.0 Allergy status to penicillin; Z88.8 Allergy status to other drugs, medicaments and biological substances; Z95.5 Presence of coronary angioplasty implant and graft; Z85.9 Personal history of malignant neoplasm, unspecified; Z92.21 Personal history of antineoplastic chemotherapy; Z92.3 Personal history of irradiation; Z87.891 Personal history of nicotine dependence; Z82.49 Family history of ischemic heart disease and other diseases of the circulatory system; Z83.3 Family history of diabetes mellitus
CPT/HCPCS: 70450; 80048; 81001; 85025; 85610; 87086; 99285

== ENCOUNTER 2022-02-25 09:00 | Outpatient (RCR) | payer OTHER, SELFPAY ==
--- NOTE | 2022-01-28 09:32 | HMH.RHREAS ---
Rehab Reassessment Rehab OP Re-assessment Start: 01/28/22 07:44 Freq: Status: Active Protocol: Document 01/28/22 09:06 HEATHER (Rec: 01/28/22 09:32 HEATHER [id number]) Electronically Signed By Bong Cunningham, PT 01/28/22 09:06 Rehab Re-assessment Subjective Subjective Pt reports long absence from skilled P.T. d/t Covid illness with lingering s/s for the last ~3+ weeks. Pt reports ' neck was doing better before I got sick, and now I'd say it' s gone back a little since I' ve missed'. Pt reports 4/10 neck pain this am on VAS, and feels 60% better overall since I eval Objective Objective Notes CROM: FLX 0-45, EXT 0-40, R SB 0-25, L SB 0-25, AXEL. ROT 0- 40 MMT: R SH FLX 4/5, R SH ABD -4 -4/5, R BICEP 4-4+/5, R TRICEP -4-4/5 TTP: RIGHT UT 2-3/4, R SCALENE 2/4, R CERVICAL PARA 2/4 Assessment Progress Assessment Progressing as Expected Assessment Notes IMPROVED CROM, STRENGTH, AND SLIGHT IMPROVEMENT IN TTP Patient goals met STG'S 01/07 LTG'S 8 Goals Not Met STG'S 07/10, LTG'S 12/08 Plan Plan Pt to continue w/skilled P.T. to make further improvements in cervical AROM, strength, and TTP to allow for optimal function Frequency of Therapy 1-2x/wk Duration of therapy 3-4wks Time and Billing Re-Eval Time 14 Re-Eval Billing Units 1 PHYSICIAN CERTIFICATION: I certify the specified therapy services for Megan Pineda are required, authorized, and reviewed every 30 days.
== END 2022-02-25 09:05 | disposition home or self-care (01) ==
LOC: PT 09:00
PROVIDERS: PCP Internal Medicine Adolescent Medicine; Visit Provider Internal Medicine Adolescent Medicine
DX: M54.2 Cervicalgia (principal); M62.838 Other muscle spasm
CPT/HCPCS: 97010; 97012; 97014; 97035; 97110; 97140; 97163; 97164; G0283

== ENCOUNTER → 2022-06-15 14:32 | Outpatient (CLI) | payer MEDICARE, BC, SELFPAY | PROVIDERS: PCP Nurse Practitioner Family; Visit Provider Nurse Practitioner Family | DX: E78.2 Mixed hyperlipidemia (principal); I11.9 Hypertensive heart disease without heart failure; I25.10 Atherosclerotic heart disease of native coronary artery without angina pectoris; I65.23 Occlusion and stenosis of bilateral carotid arteries; R00.2 Palpitations; R06.00 Dyspnea, unspecified | CPT/HCPCS: 93270 ==

== ENCOUNTER → 2022-06-21 12:56 | Outpatient (CLI) | payer MEDICARE, BC, SELFPAY ==
--- NOTE | 2022-06-21 12:58 | CA_ITS ---
FINAL REPORT CLINICAL HISTORY: NICOLÁS,HTN,HX SMOKING FINDINGS: An ultrasound of the carotid arteries was performed. Duplex Doppler evaluation with spectral analysis was performed. The peak systolic velocity of the right common carotid artery is 89 cm/s. The peak systolic velocity of the right internal carotid artery is 168 cm/s and end diastolic velocity 35 cm/s. A moderate amount of plaque is present. The right external carotid artery is patent. The right vertebral artery is patent with antegrade flow. ICA/CCA ratio: 1.86 The peak systolic velocity of the left common carotid artery is 108 cm/s. The peak systolic velocity of the left internal carotid artery is 151 cm/s and end diastolic velocity 35 cm/s. A moderate amount of plaque is present. The left external carotid artery is patent. The left vertebral artery is not identified. ICA/CCA ratio: 1.40 IMPRESSION: Less than 50% bilateral carotid stenosis. Left vertebral artery not seen and could be occluded or hypoplastic. If indicated, CTA or catheter directed angiography could further evaluate. Reviewed, Interpreted and Dictated by Kenny Retana III, MD Transcribed by Rivas Neumann Authenticated and [facility]
== END ==
PROVIDERS: PCP Nurse Practitioner Family; Visit Provider Nurse Practitioner Family
DX: E78.2 Mixed hyperlipidemia (principal); I11.9 Hypertensive heart disease without heart failure; I25.10 Atherosclerotic heart disease of native coronary artery without angina pectoris; I65.23 Occlusion and stenosis of bilateral carotid arteries; R00.2 Palpitations; R06.00 Dyspnea, unspecified
CPT/HCPCS: 93880

== ENCOUNTER 2022-07-18 09:46 | Outpatient (CLI) | payer MEDICARE, BC, SELFPAY ==
[2022-07-18 10:08] VITALS: BP 133/64; PULSE 67; RESP 18; TEMP 36.3; O2SAT 98
== END 2022-07-18 10:30 | disposition home or self-care (01) ==
PROVIDERS: PCP Nurse Practitioner Family; Visit Provider Nurse Practitioner Family
DX: M85.89 Other specified disorders of bone density and structure, multiple sites (principal)
CPT/HCPCS: 96372; J0897

== ENCOUNTER → 2022-08-03 15:43 | Outpatient (CLI) | payer MEDICARE, BC, SELFPAY ==
--- NOTE | 2022-08-03 15:46 | MM_ITS ---
PROCEDURE INFORMATION: Exam: MG Bilateral Screening 3D Mammography Exam date and time: 08/03/2022 3:35 PM Age: 81 years old Clinical indication: Screening examination TECHNIQUE: Imaging protocol: Bilateral Screening tomosynthesis and 2D mammography including computer-aided detection (CAD) when performed. COMPARISON: 1. MG MM DIG MAMM BI DX W/CAD 03/31/2021 1:16 PM 2. MG MM DIG MAMM BI DX W/CAD 07/30/2020 2:33 PM FINDINGS: MAMMOGRAPHY: Breast composition: There are scattered areas of fibroglandular density. Mass: None. Architectural distortion: None. Calcifications: No suspicious calcifications. Asymmetric density: None. Skin thickening: None. Axillary adenopathy: None. IMPRESSION: No mammographic evidence of malignancy. Annual screening is recommended unless otherwise clinically indicated. ASSESSMENT: BI-RADS Category 1: Negative
== END ==
PROVIDERS: PCP Nurse Practitioner Family; Visit Provider Nurse Practitioner Family
DX: Z12.31 Encounter for screening mammogram for malignant neoplasm of breast (principal)
CPT/HCPCS: 77063; 77067

== ENCOUNTER → 2022-11-09 08:51 | Outpatient (CLI) | payer MEDICARE, BC, SELFPAY ==
--- NOTE | 2022-11-09 08:57 | XR_ITS ---
FINAL REPORT TECHNIQUE: Bone densitometry calculations of the lumbar spine and left hip were obtained. CLINICAL HISTORY: vi.t d deficiency, post menopausal COMPARISON: 07/10/2020 FINDINGS: Using L1-4, the bone mineral density of the spine is 1.135 g/cm2, corresponding to T-score of 0.5. Using the left hip, the bone mineral density of the femoral neck is 0.599 g/cm2, corresponding to a T-score of -2.3. Using the right hip, the bone mineral density of the femoral neck is 0.591 g/cm2, corresponding to a T-score of -2.3. NOTE: T-score: Standard deviation compared with peak bone mass of young adult mean. *Following the recommendations of the International Society of Bone densitometry, classification of hip BMD is based on the lower of two T-scores; total hip or femoral neck. IMPRESSION: Diminished bone mineral density of the femoral necks consistent with osteopenia, essentially stable than previous. Normal bone mineral density of the lumbar spine. FRAX data was not reported because patient is being treated for osteoporosis. Reviewed, Interpreted and Dictated by Jose Slater MD Transcribed by Kath Rueda Authenticated and [facility]
== END ==
PROVIDERS: PCP Nurse Practitioner Family; Visit Provider Nurse Practitioner Family
DX: E55.9 Vitamin D deficiency, unspecified (principal); Z78.0 Asymptomatic menopausal state; Z13.820 Encounter for screening for osteoporosis
CPT/HCPCS: 77080

== ENCOUNTER 2023-01-19 12:56 | Outpatient (CLI) | payer MEDICARE, BC, SELFPAY ==
[2023-01-19 13:20] VITALS: BP 106/64; PULSE 68; RESP 18; O2SAT 99
== END 2023-01-19 13:25 | disposition home or self-care (01) ==
LOC: INF 12:57
PROVIDERS: PCP Nurse Practitioner Family
DX: M85.89 Other specified disorders of bone density and structure, multiple sites (principal)
CPT/HCPCS: 96372; J0897

== ENCOUNTER → 2023-01-23 13:44 | Outpatient (CLI) | payer MEDICARE, BC, SELFPAY ==
--- NOTE | 2023-01-23 13:46 | US_ITS ---
FINAL REPORT CLINICAL HISTORY: claudication FINDINGS: LOWER EXTREMITY SEGMENTAL PRESSURE MEASUREMENTS Pressure indices are as follows: RIGHT LOWER EXTREMITY: Thigh: 0.90 Calf: 0.91 Ankle, posterior tibial artery: 0.84 Ankle, dorsalis pedis: 1.1 Toe: 0.52 LEFT LOWER EXTREMITY: Upper thigh: Calf: 0.98 Ankle, posterior tibial artery: 1.6 Ankle, dorsalis pedis: 1.1 Toe: 1.2 Comments: 0.91 IMPRESSION: No findings to indicate significant obstructive peripheral vascular disease. Reviewed, Interpreted and Dictated by Jose Slater MD Transcribed by Kath Rueda Authenticated and . [facility]
== END ==
PROVIDERS: PCP Nurse Practitioner Family; Visit Provider Nurse Practitioner
DX: I73.9 Peripheral vascular disease, unspecified (principal)
CPT/HCPCS: 93923

== ENCOUNTER → 2023-05-05 06:36 | Outpatient (CLI) | payer MEDICARE, BC, SELFPAY ==
--- NOTE | 2023-05-05 06:40 | US_ITS ---
FINAL REPORT CLINICAL HISTORY: ELEVATED LIVER ENZYMES FINDINGS: Sonographic images of the right upper quadrant were obtained. The pancreas is partially obscured.The liver has an unremarkable appearance. Gallbladder is absent. There is no evidence of biliary ductal dilatation.The common duct measures 4mm. A mass is seen in the right kidney measuring 1.6 x 1.3 cm which does not appear to represent a simple cyst. This could represent complex cyst versus neoplasm. IMPRESSION: Right renal mass which may represent complex cyst or neoplasm. Recommend renal mass protocol CT for further evaluation. Reviewed, Interpreted and Dictated by Kenny Retana III, MD Transcribed by Leida Sánchez Authenticated and . [facility]
== END ==
PROVIDERS: PCP Nurse Practitioner Family; Visit Provider Nurse Practitioner Family
DX: R74.8 Abnormal levels of other serum enzymes (principal)
CPT/HCPCS: 76705

== ENCOUNTER 2023-07-24 12:32 | Outpatient (CLI) | payer MEDICARE, BC, SELFPAY ==
[2023-07-24] MEDS: DENOSUMAB 60 MG/ML SYRINGE SQ (12:40)
[2023-07-24 12:43] VITALS: BP 142/62; PULSE 78; RESP 18; TEMP 35.8; O2SAT 98
== END 2023-07-24 12:43 | disposition home or self-care (01) ==
LOC: INF 12:34
PROVIDERS: PCP Nurse Practitioner Family; Visit Provider Nurse Practitioner Family
DX: M85.89 Other specified disorders of bone density and structure, multiple sites (principal)
CPT/HCPCS: 96372; J0897

== ENCOUNTER 2023-11-28 12:28 | Outpatient (CLI) | payer MEDICARE, BC, SELFPAY ==
--- NOTE | 2023-11-28 12:29 | NM_ITS ---
APPROVED REPORT Exam: Nuclear Stress Test Indication: Chest pain, SOB, HTN, High cholesterol, Family history, CAD Patient Location: Outpatient Stress Tech: Radha Bourne MD Tech:Leelee Moses, ARRT, RT (R)(N) Ht: 5 ft 0 in Wt: 105 lbs Bra Size: 34C HR: 70 bpm BP: 176/65 mmHg BSA: 1.42 m2 TID: 1.32 History: Chest pain, SOB, HTN, High cholesterol, Family history, CAD Procedure: Patient received 0.4 mg of intravenous Lexiscan, resting heart rate 70 bpm, resting blood pressure 176/65 mmHg, with Lexiscan maximum heart rate achieved was 93 bpm which is % of the maximum predicted heart rate and blood pressure was 184/85 mmHg. With Lexiscan, patient denied any complaint of chest pain. Cardiac Stress and Resting SPECT Images: Cardiac Stress and Resting SPECT images were obtained using technetium 99m Myoview 32.6 mCi stress and 10.86 mCi at rest. Resting and stress imaging in supine and prone positions demonstrate no evidence of fixed or reversible perfusion defects. There is increased transient ischemic dilatation ratio (TID 1.32), suggestive of possible multivessel disease or balanced ischemia. Gated imaging demonstrates normal global and regional LV systolic function. LVEF is calculated at 73%. Conclusion: No evidence of fixed or reversible perfusion defects. There is increased transient ischemic dilatation ratio (TID 1.32), suggestive of possible multivessel disease or balanced ischemia. Gated imaging demonstrates normal global and regional LV systolic function. LVEF is calculated at 73%. Electronically signed by : Tiffanie Mann MD 12/05/2023 14:21:41
--- NOTE | 2023-11-28 13:01 | CA_ITS ---
APPROVED REPORT EXAM: Comprehensive 2D, Doppler, and color-flow Echocardiogram Econometrician: Venus Russ CRT Ht: 5 ft 0 in Wt: 105lbs BSA: 1.42 BP: 105/67 mmHg Indications: Chest Pain, Shortness of Breath, Palpitations, Fatigue, CAD, Hyperlipidemia, Hypertension/HDD 2D Dimensions LA Volume 23.20 mL LA Volume Index 16.00 mL/m2 (M/F) 16-34 M-Mode Dimensions RVDd 2.47 cm (0.9-2.6) LA Diam 3.21 cm (1.9-4.0) LVDd 3.69 cm (3.5-5.7) LVDs 2.19 cm (3.5-5.7) IVSd 1.03 cm (0.6-1.1) PWd 0.50 cm (0.6-1.1) EF (Teich) 72.30% FS 40.70% EDV (Teich) 57.80 mL TAPSE 2.62 (<1.7) ESV (Teich) 16.00 mL LV Diastology E Decel Time 177 (160-240 msec) E/A Ratio 0.81 MED A' 9.70 cm/s LAT A' 12.30 cm/s Aortic Valve AO Peak GR. 9.00 mmHg Mitral Valve MV E Max Pipe. 80.0 (40-130 cm/s) MV A Velocity 98.0 (40-130 cm/s) E/A Ratio 0.81 MV PHT 52.0 ms Pulmonary Valve PV Peak Velocity 98.0 (50-150 cm/s) Tricuspid Valve TR P. Velocity 306.00 cm/s RAP Estimate 10.00 mmHg RVSP 47.50 mmHg Left Ventricle The left ventricle is normal size. The left ventricular systolic function is normal. The left ventricular ejection fraction is within the normal range. There is increased LV wall thickness. There is normal LV segmental wall motion. The left ventricular diastolic function is normal. LVEF is 55%. Right Ventricle Right ventricle is mildly dilated. The right ventricular systolic function is normal. Atria Left atrium is mildly dilated. Right atrium is mildly dilated. There is no Doppler evidence of interatrial shunt. Aortic Valve The aortic valve is mildly thickened. There is no aortic valvular stenosis. Trace aortic regurgitation. Mitral Valve The mitral valve is normal in structure. No evidence of mitral valve stenosis. Trace mitral regurgitation. Tricuspid Valve The tricuspid valve leaflets are thin and pliable. Mild tricuspid regurgitation. RVSP is 20-25 mmHg. Pulmonic Valve The pulmonary valve is normal in structure. Trace pulmonic regurgitation. Great Vessels The aortic root is normal in size. The ascending aorta is not well-visualized. IVC is normal in size and collapses >50% with inspiration. Pericardium There is no pericardial effusion. Other Information Study Quality: Technically Difficult Conclusion Technically difficult study due to poor acoustic windows. Normal biventricular systolic function. Mild RV dilation. Mild biatrial dilation. Mild TR. Electronically signed by : Tiffanie Mann MD 12/04/2023 11:53:43
[2023-11-28] MEDS: REGADENOSON 0.4MG/5ML SYRINGE 0.400000000000000022 MG IV (13:40)
[2023-11-28] MEDS: ISOTOPE MYOVIEW (PER STUDY) 1 DOSE IV (13:40)
[2023-11-28] MEDS: SODIUM CHLORIDE 0.9% 10ML SYR (RAD ONLY) 10 ML IV ×2 (13:40)
--- NOTE | 2023-11-28 13:58 | CA_ITS ---
APPROVED REPORT Exam: Pharmacologic Technologist: Radha Kramer, Ht: 5 ft 0 in Wt: 105 lbs BSA: 1.42 m2 HR: 78 bpm BP: 176/65 mmHg Rhythm: NSR Medical History Medications: Omeprazole,,,,, Aspirin,,,,, Ramipril,,,,, Vit D3,,,,, Quetiapine,,,,, Mirtazapine,,,,, RoSUVASTATIN,,,,, Multivitamin,,,,, Isosorbide Monoitrate ER,,,,, Metoprolol Succinate ER,,,,, Stress Test Details Test: LEXISCAN Reason for pharmacologic stress test: physical limitation. HR Resting HR: 70 bpm Max Heart Rate (APMHR): 138 bpm Max HR Achieved: 93 bpm Target HR (85% APMHR): 117 bpm % of APMHR: 67 Recovery HR: 88 bpm BP Resting BP: 176.0/65.0 mmHg Max BP: 184.0/85.0 mmHg Recovery BP: 184.0/85.0 mmHg ECG Resting ECG: SR Stress ECG: No significant ST changes Arrhythmia: PVCs Clinical Exercise duration: 04:11 min Highest Stage Achieved: Stress ECG Conclusion Symptoms: Chest Pressure Arrhythmias/Ectopy: PVC ST-T Changes: No significant ST changes Conclusion: EKG portion unremarkable due to Lexiscan infusion. Myoview images are reported separately. Test Summary REST 01:21 . . 70 . 176/ 65 . . Stage 1 . . . . . . . Myoview Injected Stage 1 01:00 . . 86 . . . . Stage 2 01:00 . . 88 . 156/ 69 . . Stage 3 01:00 . . 87 . 162/ 77 . . Stage 4 01:00 . . 88 . 167/ 66 . . Stage 4 01:11 . . 93 . 179/ 68 . Stop exercise at 04:11 RECOVERY 01:00 . . 89 . 179/ 68 . . RECOVERY 02:00 . . 90 . 183/ 73 . . RECOVERY 02:45 . . 90 . 184/ 85 . . Electronically signed by : Tiffanie Mann MD 12/05/2023 14:20:34
== END 2023-11-28 23:59 | disposition home or self-care (01) ==
LOC: RAD 12:29
PROVIDERS: PCP Nurse Practitioner Family; Visit Provider Nurse Practitioner Family
DX: R07.9 Chest pain, unspecified; I20.89 Other forms of angina pectoris; I11.9 Hypertensive heart disease without heart failure; R53.83 Other fatigue; I65.23 Occlusion and stenosis of bilateral carotid arteries; E78.2 Mixed hyperlipidemia
CPT/HCPCS: 78452; 93017; 93018; 93306; A9502; J2785

== ENCOUNTER 2023-12-21 08:08 | Day surgery (SDC) | payer MEDICARE, BC, SELFPAY ==
[2023-12-21] VITALS (11 sets, daily range): BP systolic 138–174; BP diastolic 81–116; PULSE 76–87; RESP 16–19; O2SAT 95–99; BMI 20.5
--- NOTE | 2023-12-21 07:15 | IR_ITS ---
APPROVED REPORT Patient Location: Outpatient Greenhouse Grower: LIA Cox RT (R) PROCEDURES Left heart catheterization Left ventriculogram Selective coronary angiogram INDICATION Abnormal Myoview, Angina pectoris Informed consent was obtained prior to the procedure. COMPLICATIONS NONE Estimated Blood Loss: LESS THAN 10 ML TECHNIQUE One percent lidocaine used to anesthetize the right anterior aspect of the wrist. The right radial artery was accessed via the Seldinger technique. A 6 Welsh sheath was placed in the right radial artery. 2.5 mg of Verapamil, 800 mcg of nitroglycerin, 1mg Lidocaine and 5000 U Heparin were given through the arterial sheath. The papa catheter was also used to perform left heart catheterization, left ventriculogram and selective coronary angiogram. At the end of the procedure the sheath was removed good hemostasis was achieved using Traclet band, patient was transferred to the postop holding area in stable condition. ANGIOGRAPHIC RESULTS The left main artery Normal The left anterior descending artery Has proximal 10 to 20% stenosis followed by a proximal stent which is widely patent free of in-stent restenosis with excellent distal and proximal transitioning. The remaining LAD is widely patent The circumflex artery Nondominant tortuous with 10 to 20% stenoses The right coronary artery Dominant with diffuse 10 to 20% calcifications throughout the proximal and mid segment with additional 30% calcified distal stenosis The MURPHY ventriculogram reveals Hyperdynamic 75% The left ventricular end-diastolic pressure 10 mmHg IMPRESSION Patent coronary arteries as described above Hyperdynamic ventricle Normal LVEDP PLAN 1. Medical management Electronically signed by : Arslan Hobbs MD 12/21/2023 12:42:19
[2023-12-21 08:34] LABS: Basophils # 0.1 K/mm3 (0-0.2); Basophils % 1.2 % (0.1-2.0); Eosinophils # 0.2 K/mm3 (0.0-0.4); Eosinophils % 3.1 % (0.1-12.0); Hematocrit 38.6 % (37.0-47.0); Hemoglobin 12.2 g/dL (12.2-16.2); Lymphocytes % 32.9 % (10-50); Mean Corpuscular HGB Conc 31.6 g/dL (31.8-35.4); Mean Corpuscular Volume 95.1 fl (81-99); Monocytes # 0.3 K/mm3 (0.1-1.0); Monocytes % 4.7 % (1.7-9.3); Neutrophils # 3.6 K/mm3 (1.8-7.8); Neutrophils % 58.1 % (37.0-80.0); Platelet Count 170 K/mm3 (142-424); Red Blood Count 4.06 M/mm3 (4.20-5.40); Red Cell Distribution Width 14.7 % (11.5-17.5); White Blood Count 6.2 K/mm3 (4.8-10.8)
[2023-12-21 08:38] LABS: Chloride 103 mmol/L (98-107); Sodium 142 mmol/L (136-145)
[2023-12-21 08:39] LABS: Potassium 4.2 mmoL/L (3.5-5.1)
[2023-12-21 08:41] LABS: Blood Urea Nitrogen 18 mg/dl (7-17); Creatinine Clearance Estimated 25 mL/min (50-200); Estimated Glomerular Filt Rate 39 ml/min (>60); GFR (African American) 47 ML/MIN (>60)
[2023-12-21 08:42] LABS: Anion Gap 12.2 mEq/L (5-15); Calcium 9.5 mg/dl (8.4-10.2); Carbon Dioxide 31 mmol/L (22.0-30.0); Glucose 112 mg/dl (74-100)
--- NOTE | 2023-12-21 11:15 | SUR.PREOP ---
Updated pt visitor on POC
[2023-12-21] MEDS: diphenhydrAMINE 50MG/ML VIAL 50 MG IV (11:49)
[2023-12-21] MEDS: HEPARIN 1,000 UNITS/500ML NS (CATH LAB) 3000 UNIT IV (11:50)
[2023-12-21] MEDS: LIDOCAINE 1% 10ML MDV 20 ML IJ (11:50)
[2023-12-21] MEDS: VERAPAMIL 2.5MG/ML 2ML VIAL 2.5 MG IV (11:50)
[2023-12-21] MEDS: HEPARIN 1,000 UNITS/ML 10ML VIAL (CATH LAB) 10000 UNIT IV (11:50)
[2023-12-21] MEDS: NITROGLYCERIN 800MCG/8ML SYR (CATH LAB) 800 MCG IA (11:50)
[2023-12-21] MEDS: MIDAZOLAM HCL 1MG/1ML 5ML VIAL 1 MG IV (11:51)
[2023-12-21] MEDS: 0.9 % SODIUM CHLORIDE 500 ML 25 ML IV (11:51)
[2023-12-21] MEDS: FENTANYL 100MCG/2ML VIAL 50 MCG IV (11:51)
--- NOTE | 2023-12-21 13:00 | SUR.PHASEII ---
Family at bedside, stated she is leaving and will be back when pt is d/c
[2023-12-21] MEDS: IOPAMIDOL-370 (76%);100ML BOTTLE 40 ML IV (13:54)
== END 2023-12-21 15:18 | disposition home or self-care (01) ==
PROVIDERS: PCP Nurse Practitioner Family; Visit Provider Internal Medicine
DX: R93.1 Abnormal findings on diagnostic imaging of heart and coronary circulation (principal); R53.83 Other fatigue; I65.23 Occlusion and stenosis of bilateral carotid arteries; I11.9 Hypertensive heart disease without heart failure; E78.2 Mixed hyperlipidemia; I25.118 Atherosclerotic heart disease of native coronary artery with other forms of angina pectoris; Z79.899 Other long term (current) drug therapy; Z95.5 Presence of coronary angioplasty implant and graft; Z87.891 Personal history of nicotine dependence
CPT/HCPCS: 80048; 85025; 93458; 99152; C1725; C1769; J1644; J2250; J3010; Q9967

== ENCOUNTER 2024-01-03 10:12 | Outpatient (CLI) | payer MEDICARE, BC, SELFPAY ==
--- NOTE | 2024-01-03 10:16 | XR_ITS ---
FINAL REPORT CLINICAL HISTORY: Nonspecific chest pain COMPARISON: 11/13/2021 FINDINGS: Two views of the chest were obtained. The heart size and pulmonary vascularity are within normal limits. The mediastinum is normal. Persistent right middle lung opacity is favored to represent scarring. There is a new left base opacity which may represent localized infiltrate. Mass is not excluded. There is no pneumothorax. There is postoperative change of the lower thoracic spine. IMPRESSION: New left base opacity may represent localized infiltrate but mass not excluded. Recommend follow-up radiographs or chest CT. Reviewed, Interpreted and Dictated by Kenny Retana III, MD Transcribed by Isha Xie Authenticated and . [facility]
== END 2024-01-03 23:59 | disposition home or self-care (01) ==
LOC: RAD 10:14
PROVIDERS: PCP Nurse Practitioner Family; Visit Provider Physician Assistant
DX: R07.89 Other chest pain (principal)
CPT/HCPCS: 71046

== ENCOUNTER 2024-01-24 12:36 | Outpatient (CLI) | payer MEDICARE, BC, SELFPAY ==
[2024-01-24] MEDS: DENOSUMAB 60 MG/ML SYRINGE SQ (12:50)
[2024-01-24 13:00] VITALS: BP 118/63; PULSE 78; RESP 18; O2SAT 98
== END 2024-01-24 13:00 | disposition home or self-care (01) ==
LOC: INF 12:37
PROVIDERS: PCP Nurse Practitioner Family; Visit Provider Nurse Practitioner Family
DX: M81.0 Age-related osteoporosis without current pathological fracture (principal); Z79.620 Long term (current) use of immunosuppressive biologic
CPT/HCPCS: 96372; J0897

== ENCOUNTER 2024-04-25 11:51 | Outpatient (CLI) | payer MEDICARE, BC, SELFPAY ==
--- NOTE | 2024-04-25 11:56 | XR_ITS ---
PROCEDURE INFORMATION: Exam: XR Lumbosacral Spine Exam date and time: 04/25/2024 11:58 AM Age: 83 years old Clinical indication: Low back pain; Patient HX: Fall 5 days ago, back pain TECHNIQUE: Imaging protocol: Radiologic exam of the lumbosacral spine. Views: 4 or 5 views. COMPARISON: CR XR LUMBAR SPINE MIN 4V 04/25/2024 11:58 AM FINDINGS: Bones/joints: Stable Vertebroplasty at L1. No acute fracture identified.. Intervertebral disc space narrowing L1 through L3 consistent with degenerative disc disease.. Soft tissues: Unremarkable. Intraperitoneal space: Surgical clips in the abdomen IMPRESSION: 1. No acute fracture identified.. 2. Intervertebral disc space narrowing L1 through L3 consistent with degenerative disc disease..
--- NOTE | 2024-04-25 11:56 | XR_ITS ---
PROCEDURE INFORMATION: Exam: XR Thoracic Spine Exam date and time: 04/25/2024 11:58 AM Age: 83 years old Clinical indication: Pain in thoracic spine; Patient HX: Fall 5 days ago, back pain; Additional info: Acute traumatic pain TECHNIQUE: Imaging protocol: Radiologic exam of the thoracic spine. Views: 3 views. COMPARISON: CR XR LUMBAR SPINE MIN 4V 04/25/2024 11:58 AM FINDINGS: Bones/joints: Degenerative changes along the thoracic spine. There is no evidence of acute fracture.There is no evidence of malalignment or dislocation. Soft tissues: Unremarkable. IMPRESSION: There is no evidence of acute fracture.There is no evidence of malalignment or dislocation.
== END 2024-04-25 23:59 | disposition home or self-care (01) ==
LOC: RAD 11:52
PROVIDERS: PCP Nurse Practitioner Family; Visit Provider Nurse Practitioner Family
DX: G89.11 Acute pain due to trauma (principal); M54.50 Low back pain, unspecified
CPT/HCPCS: 72072; 72110

== ENCOUNTER 2024-07-29 11:22 | Outpatient (CLI) | payer MEDICARE, BC, SELFPAY ==
[2024-07-29] MEDS: DENOSUMAB 60 MG/ML SYRINGE SUBCUT (11:40)
[2024-07-29 11:43] VITALS: BP 128/60; PULSE 73; RESP 18; O2SAT 99
== END 2024-07-29 11:43 | disposition home or self-care (01) ==
PROVIDERS: PCP Nurse Practitioner Family; Visit Provider Nurse Practitioner Family
DX: M81.0 Age-related osteoporosis without current pathological fracture (principal)
CPT/HCPCS: 96372; J0897

== ENCOUNTER 2024-08-02 12:45 | Outpatient (CLI) | payer MEDICARE, BC, SELFPAY ==
--- NOTE | 2024-08-02 12:46 | CA_ITS ---
FINAL REPORT TECHNIQUE: Color Doppler, duplex Doppler and schuster scale sonography of the bilateral neck vasculature was performed. Velocities were measured in the carotid arteries. Stenosis evaluation based on velocity criteria. CLINICAL HISTORY: HTN, HLD, CAD, NICOLÁS COMPARISON: 06/21/2022 FINDINGS: The peak systolic velocity of the right common carotid artery is 88 cm/sec and internal carotid artery 173 cm/sec. The diastolic velocity in the internal carotid artery is 36 cm/sec. The ICA/CCA ratio is 2.0. Visually, a moderate amount of plaque is seen. These findings are consistent with less than 50% stenosis. The external carotid artery is patent. The right vertebral artery is patent with antegrade flow. The peak systolic velocity of the left common carotid artery is 128 cm/sec and internal carotid artery 173 cm/sec. The diastolic velocity in the internal carotid artery is 36 cm/sec. The ICA/CCA ratio is 1.35. Visually, a moderate amount of plaque is seen. These findings are consistent with less than 50% stenosis. The external carotid artery is patent. The left vertebral artery is patent with antegrade flow. IMPRESSION: No evidence of significant carotid stenosis. Bilateral patent vertebral arteries. If indicated, CTA or MRA could further evaluate. Reviewed, Interpreted and Dictated by Owen Atkins MD Transcribed by Jennifer Botello Authenticated and [facility]
== END 2024-08-02 23:59 | disposition home or self-care (01) ==
LOC: RT 12:46
PROVIDERS: PCP Nurse Practitioner Family; Visit Provider Nurse Practitioner Family
DX: I65.23 Occlusion and stenosis of bilateral carotid arteries (principal)
CPT/HCPCS: 93880

== ENCOUNTER 2024-10-12 12:55 | Emergency (ER) | payer MEDICARE, BC, SELFPAY ==
[2024-10-12 13:07] VITALS: BP 189/96; PULSE 92; RESP 16; TEMP 36.7; O2SAT 97; BMI 20.5
--- NOTE | 2024-10-12 13:07 | XR_ITS ---
PROCEDURE INFORMATION: Exam: XR Chest Exam date and time: 10/12/2024 1:37 PM Age: 83 years old Clinical indication: Injury or trauma; Fall; Blunt trauma (contusions or hematomas); Additional info: Fall age >65, L shoulder pain, h/o lung cancer in 2020 - currently in remission TECHNIQUE: Imaging protocol: Radiologic exam of the chest. Views: 2 views. COMPARISON: CR XR CHEST 2V 01/03/2024 10:24 AM FINDINGS: Lungs: There is redemonstration of right mid lung field pulmonary opacity. Otherwise, no evidence of pneumonia or interstitial edema. Pleural spaces: Unremarkable. No pleural effusion. No pneumothorax. Heart/Mediastinum: Unremarkable. No cardiomegaly. Bones/joints: Status post L1 kyphoplasty. No subacute fracture. IMPRESSION: 1. There is redemonstration of right mid lung field pulmonary opacity. Otherwise, no evidence of pneumonia or interstitial edema. 2. Status post L1 kyphoplasty. No subacute fracture.
--- NOTE | 2024-10-12 13:07 | CT_ITS ---
PROCEDURE INFORMATION: Exam: CT Head Without Contrast Exam date and time: 10/12/2024 1:38 PM Age: 83 years old Clinical indication: Injury or trauma; Fall; Blunt trauma (contusions or hematomas); Additional info: Fall age >65, L shoulder pain TECHNIQUE: Imaging protocol: Computed tomography of the head without contrast. Radiation optimization: All CT scans at this facility use at least one of these dose optimization techniques: automated exposure control; mA and/or kV adjustment per patient size (includes targeted exams where dose is matched to clinical indication); or iterative reconstruction. COMPARISON: CT HEAD/BRAIN WO CON 02/21/2022 11:11 AM FINDINGS: Brain: There is no evidence of acute intracranial hemorrhage, extra-axial collection or locoregional mass effect. There are patchy and coalescent hypodensities in the periventricular and subcortical white matter. The appearance is nonspecific, but most likely represents chronic small vessel disease in a person of this age Cerebral ventricles: There is diffuse prominence of the ventricles and CSF containing spaces which can be attributed to age-related volume loss. No hydrocephalus or midline shift identified. Pituitary gland and sella: Sellar/parasellar structures, craniocervical junction and orbits are unremarkable Paranasal sinuses: Visualized sinuses are unremarkable. No fluid levels. Mastoid air cells: Visualized mastoid air cells are well aerated. Bones: No calvarial fracture Soft tissues: Unremarkable. Vasculature: There are calcifications in vertebral arteries and carotid siphons. IMPRESSION: No acute intracranial abnormality. No calvarial fracture.
--- NOTE | 2024-10-12 13:07 | CT_ITS ---
PROCEDURE INFORMATION: Exam: CT Cervical Spine Without Contrast Exam date and time: 10/12/2024 1:41 PM Age: 83 years old Clinical indication: Injury or trauma; Fall; Blunt trauma; Additional info: Fall age >65, L shoulder pain TECHNIQUE: Imaging protocol: Computed tomography of the cervical spine without contrast. Radiation optimization: All CT scans at this facility use at least one of these dose optimization techniques: automated exposure control; mA and/or kV adjustment per patient size (includes targeted exams where dose is matched to clinical indication); or iterative reconstruction. COMPARISON: CR XR CERVICAL SPINE 5V 08/16/2021 1:12 PM FINDINGS: Bones: Vertebral alignment is maintained. There is preservation of vertebral body heights. Facet joints are aligned. Odontoid process is intact. Atlantoaxial interval maintained. No acute fracture. Uncovertebral and facet arthropathy result in varying degrees of neural foraminal narrowing at multiple levels. 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 Soft tissues: Prevertebral and paravertebral soft tissues are maintained IMPRESSION: No acute fracture. No traumatic subluxation.
--- NOTE | 2024-10-12 13:07 | XR_ITS ---
PROCEDURE INFORMATION: Exam: XR Left Shoulder Exam date and time: 10/12/2024 1:39 PM Age: 83 years old Clinical indication: Injury or trauma; Fall; Blunt trauma (contusions or hematomas); Shoulder; Left; Additional info: Fall age >65, L shoulder pain TECHNIQUE: Imaging protocol: Radiologic exam of the left shoulder. Views: 2 or more views. COMPARISON: CR XR SHOULDER LT MIN 2V 10/12/2024 1:39 PM FINDINGS: Bones/joints: The acromioclavicular joint is normal. There is an acute impacted fracture involving the greater tuberosity. No glenohumeral dislocation. Soft tissues: Normal. IMPRESSION: There is an acute impacted fracture involving the greater tuberosity.
--- NOTE | 2024-10-12 13:07 | XR_ITS ---
PROCEDURE INFORMATION: Exam: XR Left Humerus Exam date and time: 10/12/2024 1:39 PM Age: 83 years old Clinical indication: Injury or trauma; Fall; Blunt trauma (contusions or hematomas); Arm, upper; Left; Additional info: Fall age >65, L shoulder pain TECHNIQUE: Imaging protocol: Radiologic exam of the left humerus. Views: 2 or more views. COMPARISON: CR XR SHOULDER LT MIN 2V 10/12/2024 1:39 PM FINDINGS: Bones/joints: Normal. Soft tissues: Normal. IMPRESSION: No acute findings.
--- NOTE | 2024-10-12 13:07 | XR_ITS ---
PROCEDURE INFORMATION: Exam: XR Left Elbow Exam date and time: 10/12/2024 1:46 PM Age: 83 years old Clinical indication: Injury or trauma; Fall; Blunt trauma (contusions or hematomas); Elbow; Left; Additional info: Fall age >65, L shoulder pain TECHNIQUE: Imaging protocol: Radiologic exam of the left elbow. Views: 3 or more views. COMPARISON: CR XR HUMERUS LT 10/12/2024 1:39 PM FINDINGS: Bones/joints: Normal. Soft tissues: Normal. IMPRESSION: No acute findings.
--- NOTE | 2024-10-12 13:12 | ED_ITS ---
Discharge Plan Disposition Patient Disposition: Home, Self-Care Condition: Good Prescriptions Prescriptions: No Action mirtazapine 7.5 mg tablet 7.5 mg PO HS quetiapine 25 mg tablet 25 mg PO DAILY Patient Comments: TAKE 1 TABLET BY MOUTH AT NIGHT ramipril 2.5 mg capsule 2.5 mg PO DAILY Patient Comments: TAKE 1 CAPSULE BY MOUTH ONCE DAILY aspirin [Adult Low Dose Aspirin] 81 mg tablet,delayed release (DR/EC) 81 mg PO DAILY PreserVision AREDS-2 [phone] dm-xnij-ng-mg capsule 1 tab PO DAILY Rx Instructions: administer with meals omeprazole 40 mg capsule,delayed release(DR/EC) 40 mg PO DAILY metoprolol succinate 25 mg tablet extended release 24 hr 25 mg PO QDAY Qty: 90 3RF metoprolol succinate 50 mg tablet extended release 24 hr See Rx Instructions .ROUTE .COMPLEX Qty: 90 4RF Dose Instruction: Take 1 tablet by mouth once daily for blood pressure Rx Instructions: Take 1 tablet by mouth once daily for blood pressure levofloxacin 250 mg tablet 250 mg PO DAILY Qty: 7 0RF rosuvastatin 10 mg tablet See Rx Instructions .ROUTE .COMPLEX Qty: 90 3RF Dose Instruction: TAKE 1 TABLET BY MOUTH ONCE DAILY AT BEDTIME NIGHTLY FOR CHOLESTEROL Rx Instructions: TAKE 1 TABLET BY MOUTH ONCE DAILY AT BEDTIME NIGHTLY FOR CHOLESTEROL isosorbide mononitrate 30 mg tablet extended release 24 hr See Rx Instructions .ROUTE .COMPLEX Qty: 90 1RF Dose Instruction: Take 1 tablet by mouth once daily Rx Instructions: Take 1 tablet by mouth once daily cholecalciferol (vitamin D3) 125 MCG capsule 125 mcg PO HS Referrals Follow up/Referrals: Lenard Loaiza DO [Staff Physician] - See instructions Juliette Land APRN [Primary Care Provider] - See instructions Activity Restrictions/Add. Instructions Additional Instructions/Restrictions: You were evaluated in the emergency department today and diagnosed with a fracture of your proximal humerus. Please use your cuff and collar and/or sling to stabilize and provide comfort. Take Tylenol and ibuprofen every 4-6 hours as needed for pain. Rest, ice, and elevate your arm. Do not bear weight through your arm. Please call orthopedics office Monday to schedule an appoint ment with Dr. Loaiza. Also follow-up closely with your primary care provider. Return to the emergency department for new or worsening symptoms Clinical Impressions Clinical Impression: Closed fracture of greater tuberosity of humerus Instructions Patient Instructions: DI for Humeral Fracture Print Language Print Language: Uzbek Discharge ED Provider: Mireya Graham General Adult HPI General Chief complaint: PAIN Stated complaint: AO/1130 Left Shoulder Injury Time Seen by Provider: 10/12/24 13:03 History of Present Illness HPI narrative: This patient is an 83-year-old female with a history of hypertension, hyperlipidemia, CAD, hypertensive heart disease on aspirin presenting to the emergency department for evaluation of concern for left shoulder pain after a mechanical ground-level fall. Patient states that this morning she was trying to separate her dogs when she caught her foot and her baby gate, fell forward landing on her left shoulder. She did not hit her head or lose consciousness. She has significant pain with limited range of motion of the left shoulder. She initially went to PCP and then to urgent treatment center and then was referred here without imaging. She denies any pain aside from her left shoulder. No numbness, tingling, or other concerns. She was well prior to the fall. Related Data Home Medications ?Medication ?Instructions ?Recorded ?Confirmed aspirin 81 mg tablet,delayed 81 mg PO DAILY [facility] 11/06/17 10/12/24 release (Adult Low Dose Aspirin) cholecalciferol (vitamin D3) 125 125 mcg PO HS Supplement 01/06/20 10/12/24 mcg (5,000 unit) capsule vit C 250 mg-vit E 90 mg-zinc 40 1 tab PO DAILY Supplement 01/24/20 10/12/24 mg-copper 1 lo-[id number]-[id number] capsule (PreserVision AREDS-2) mirtazapine 7.5 mg tablet 7.5 mg PO HS Depression 06/15/22 10/12/24 omeprazole 40 mg capsule,delayed 40 mg PO DAILY 07/20/22 10/12/24 release quetiapine 25 mg tablet 25 mg PO DAILY 01/19/23 10/12/24 ramipril 2.5 mg capsule 2.5 mg PO DAILY 07/29/24 10/12/24 Previous Rx's ?Medication ?Instructions ?Recorded metoprolol succinate 25 mg 25 mg PO QDAY #90 tabs 07/20/22 tablet,extended release 24 hr metoprolol succinate 50 mg See Rx Instructions .Route 08/15/23 tablet,extended release 24 hr .COMPLEX #90 tabs levofloxacin 250 mg tablet 250 mg PO DAILY #7 tabs 01/03/24 rosuvastatin 10 mg tablet See Rx Instructions .Route 04/23/24 .COMPLEX #90 tabs isosorbide mononitrate 30 mg See Rx Instructions .Route 09/18/24 tablet,extended release 24 hr .COMPLEX #90 tabs Allergies Allergy/AdvReac Type Severity Reaction Status Date / Time celecoxib (From CELEBREX) Allergy Severe RAPID Verified 10/12/24 12:41 HEART RATE rofecoxib (From VIOXX) Allergy Severe RAPID Verified 10/12/24 12:41 HEART RATE Penicillins (PENICILLINS) Allergy Unknown Verified 10/12/24 12:41 tuberculin, purified protein Allergy Unknown POSITIVE Verified 10/12/24 12:41 deriva REACTOR (TUBERCULIN,PURIF.PROT.DERIV.) [facility] Disclaimer: The information contained in this section may have been updated after the patient was seen, as this information can be updated by other users. Medical History Abnormal nuclear cardiac imaging test Angina pectoris Hiatal hernia with GERD Palpitations Dyspnea Atypical angina SOB (shortness of breath) Numbness and tingling of both upper extremities Carotid artery stenosis Other forms of angina pectoris Hypertensive heart disease Hyperlipidemia Coronary arteriosclerosis Surgical History History of repair of hiatal hernia Social History Smoking Status: Never smoker second hand exposure: No alcohol intake: never substance use type: denies use current occupational status: retired Travel in the last 8 weeks: None household members: family housing: house current occupational exposures/hazards: No caffeine: No Have you lived/traveled outside [place] in past 30 days?: No Contact w/someone who lives/traveled outside US past 30 days?: No Exposure to someone with infectious disease in past 14 days?: No Do you have a fever (greater than 100.4 F or 38 C)?: No Have you tested positive for COVID-19: No Exposed to someone with COVID-19 in past 14 days?: No Do you have a sore throat?: No Do you have a cough?: No Do you have any weakness?: No Do you have any diarrhea?: No Are you experiencing any unusual bleeding?: No Do you have any muscle aches/pain?: Yes Do you have any abdominal pain?: No Are you experiencing loss of taste or smell?: No Other Medical History Have you received the Flu Vaccine for this season: No Have you received the Pneumonia Vaccine: Yes ROS Obtained: Yes All systems reviewed & no additional complaints except as documented Physical Exam General General appearance: alert and in no apparent distress Head Head exam: atraumatic and normocephalic Eye Eye exam: Present normal appearance, PERRL and EOMI ENT ENT exam: Present normal exam, normal oropharynx, mucous membranes moist and normal external ear exam Neck Neck exam: Present normal inspection, full ROM and trachea midline; Absent tenderness Chest Chest inspection: Present normal inspection and symmetric chest wall rise; Absent tenderness Respiratory Respiratory exam: Present normal lung sounds bilaterally; Absent respiratory distress, wheezes, stridor or accessory muscle use Cardiovascular Cardiovascular exam: Present regular rate and normal rhythm Abdominal Exam Abdominal exam: Present soft; Absent distention, tenderness or guarding Extremities Exam Extremities exam: Present tenderness, normal capillary refill and other (Tenderness to palpation of the left shoulder joint with limited range of motion secondary to pain. All compartments soft. Neurovascularly intact distally. No open wounds); Absent full ROM or edema Back Exam Back exam: Present normal inspection and full ROM; Absent tenderness Neurological Exam Neurological exam: Present alert, oriented X3, CN II-XII intact and normal gait; Absent motor sensory deficit Psychiatric Psychiatric exam: Present normal affect and normal mood Skin Skin exam: Present warm and dry Medical Decision Making Medical Records Medical records reviewed: Yes I reviewed the patient's medical records. Screening: Per USPSTF and CDC recommendations, given the prevalence of disease in our [place], it is our hospital?s policy to screen for HIV and viral Hepatitis for all patients aged 18 and over and those with ongoing risk factors. Sebastián Inquiry Pt receiving controlled substance: No Vital Signs: 10/12/24 13:07 10/12/24 13:31 10/12/24 14:34 Temperature 98.1 F 98 F Temperature Source Oral Pulse Rate 84 72 Pulse Rate [Left Radial] 92 H Respiratory Rate 16 16 Blood Pressure 171/85 H 171/85 H Blood Pressure [Right Arm] 189/96 H Blood Pressure Mean [Right Arm] 127 Blood Pressure Source [Right Arm] Automatic Cuff Blood Pressure Position [Right Arm] Sitting 02 Sat by Pulse Oximetry 97 98 Oxygen Delivery Method Room Air Room Air Room Air Lab Data Lab results reviewed: Yes I reviewed the patient's lab results. Orders (Tests/Meds): ED MEDICATIONS Discontinued Medications Generic Name Dose Route Start Last Admin Trade Name Richa PRN Reason Stop Dose Admin Hydrocodone Bitart/Acetaminophen 1 tab 10/12/24 13:07 10/12/24 13:26 Hydrocodone/Apap 5/325 Mg Tablet PO 10/12/24 13:08 1 tab ONCE ONE Administration Ondansetron HCl 4 mg 10/12/24 13:07 10/12/24 13:26 Ondansetron 4mg Odt SL 10/12/24 13:08 4 mg ONCE ONE Administration ORDERS Category Date Time Status CT cervical spine wo con Stat Cat Scan 10/12/24 13:[address] head/brain wo con Stat Cat Scan 10/12/24 13:07 Completed CXR 2 view (NOT portable) [XR chest 2V] Stat Exams 10/12/24 13:07 Completed Elbow XR left mininum 3 views [XR elbow LT min 3V] Stat Exams 10/12/24 13:07 Completed Humerus XR left [XR humerus LT] Stat Exams 10/12/24 13:07 Completed Shoulder XR left minimum 2 views [XR shoulder LT min 2V Exams 10/12/24 13:07 Completed ] Stat Medical Decision Narrative: In summary, this patient is a 83-year-old female presenting to the Emergency Department for evaluation of shoulder pain after mechanical ground-level fall. Differential diagnoses considered include but are not limited to fracture, contusion, strain/sprain, dislocation, neurovascular injury, polytrauma. Ruling out the most morbid conditions drove assessment. It should be noted patient's history includes cardiovascular history on aspirin which may or may not be at goal therapy. This complicates all aspects of care by increasing patient's risk for morbidity. On exam, the patient is sitting upright in no acute distress. She has her left arm in a sling with limited range of motion of the left shoulder and tenderness of her left shoulder. She is neurovascularly intact distally. No other obvious traumatic injuries noted on exam. Cannot exclude head or C-spine injury based on [place] head/C-spine CT rules. Workup included the head and C-spine, x-rays of the left shoulder, humerus, elbow, and x-rays of the chest. She was given oral [place] for symptomatic improvement of pain. I independently interpreted CT scans and x-rays prior to the radiologist read and noted no acute intracranial hemorrhage, no C-spine fracture. She does have a greater tuberosity fracture of the left humerus. Please see their read for final interpretation. Patient was placed in cuff and collar for immobilization of left humerus fracture. At this time, I feel that she is appropriate for discharge home with close follow-up with orthopedics. She is given instructions for supportive management and strict return precautions. She was discharged after all questions were answered. Procedures Orthopedic Splinting/Casting Injury #1: Side: left Upper Extremity Injury Location: shoulder Upper Extremity Immobilizer: sling/shoulder immobilizer Additional Comments: Tolerated well with improvement in pain Post Cast/Splinting Neuro Status: intact and no change Post Cast/Splinting Vasc Status: intact and no change Critical Care Critical Care Time Critical Care Time: No
[2024-10-12] MEDS: ONDANSETRON 4MG ODT 4 MG SL (13:26)
[2024-10-12] MEDS: HYDROCODONE/APAP 5/325 MG TABLET 1 TAB PO (13:26)
[2024-10-12 13:31] VITALS: BP 171/85; PULSE 84; O2SAT 98
--- NOTE | 2024-10-12 14:04 | PC.NURSE ---
pt has arrived back to room from ct via wheel chair
--- NOTE | 2024-10-12 14:25 | PC.NURSE ---
DR SABILLON AT BEDSIDE TO UPDATE PT AND FAMILY
[2024-10-12 14:34] VITALS: BP 171/85; PULSE 72; RESP 16; TEMP 36.6; O2SAT 98
== END 2024-10-12 14:37 | disposition home or self-care (01) ==
PROVIDERS: Emergency Provider Emergency Medicine; PCP Nurse Practitioner Family
DX: S42.252A Displaced fracture of greater tuberosity of left humerus, initial encounter for closed fracture (principal); W18.39XA Other fall on same level, initial encounter
CPT/HCPCS: 99285; 70450; 71046; 72125; 73030; 73060; 73080; Q0162

== ENCOUNTER 2024-11-07 08:43 | Outpatient (CLI) | payer MEDICARE, BC, SELFPAY ==
--- NOTE | 2024-11-07 08:48 | XR_ITS ---
FINAL REPORT CLINICAL HISTORY: Left shoulder pain COMPARISON: None FINDINGS: 2 views of the left shoulder were obtained. There is lucency in the region of the greater tuberosity, age-indeterminate fracture not excluded. There is no dislocation. There is mild degenerative joint disease. Soft tissues are unremarkable. IMPRESSION: Possible age-indeterminate greater tuberosity fracture. Consider CT or MRI if indicated. Reviewed, Interpreted and Dictated by Penelope Arango MD Transcribed by Luz Maria Dasilva Authenticated and [facility]
== END 2024-11-07 23:59 | disposition home or self-care (01) ==
LOC: RAD 08:44
PROVIDERS: PCP Nurse Practitioner Family; Visit Provider Orthopaedic Surgery
DX: M25.512 Pain in left shoulder (principal)
CPT/HCPCS: 73030

== ENCOUNTER 2024-12-19 08:35 | Outpatient (CLI) | payer MEDICARE, BC, SELFPAY ==
--- NOTE | 2024-12-19 08:42 | XR_ITS ---
FINAL REPORT CLINICAL HISTORY: Left humerus fx October no surgery COMPARISON: 11/07/2024 left shoulder FINDINGS: Two views of the left humerus were obtained. There is a curvilinear nondisplaced fracture of the greater tuberosity with sclerotic margins indicating healing. Mild hypertrophic changes are noted of the acromioclavicular joint. There is no acute soft tissue abnormality. IMPRESSION: Healing fracture greater tuberosity. Mild changes of osteoarthritis. Reviewed, Interpreted and Dictated by Owen Atkins MD Transcribed by Isha Xie Authenticated and [facility]
--- OUTSIDE RECORDS SUMMARY | 2024-12-19 08:42 | XMS_ITS | Clinical Summary ---
Author Organization [facility] Address [address] [place] [address] Care Team Providers Care Agriculture Science Teacher Name Role Phone Unruly Damon MD Primary Care Provider [phone] Social History Tobacco Use Types Packs/Day Years Used Date Smoking Tobacco: Never Assessed Comments Unknown Sex and Gender Information Value Date Recorded Sex Assigned at Not on file Legal Sex Female 8:41 PM EDT Gender Identity Not on file Sexual Orientation Not on file Plan of Treatment Health Maintenance Due Date Last Done Comments [facility]-Bone Density Scan 1941 [facility]-Depression Screening 1941 [facility]-Infant/Child/Adol SDOH Screenings 1940 [facility]- SDOH Screenings 11/23/1959 [facility]-Adult SDOH Screenings 11/23/1959 [facility]-DTaP,Tdap,and Td Vaccines (1 - Tdap) 1960 [facility]-Pneumococcal Vaccine: 50+ Years (1 of 1 - PCV) 11/23/1991 [facility]-Zoster Vaccines (1 of 2) 11/23/1991 [facility]-RSV Vaccine: 60+ Years or (1 - 1-dose 75+ series) 2016 [id number] Vaccine ( season) 2024 11/12/2021, 02/24/2021, 09/09/2020, Additional history exists [facility]-Influenza Vaccine (Season Ended) 2025 04/24/2017 [facility]-Hepatitis A Vaccines Aged Out 05/10/2018, 08/2017 No longer eligible based on patient's age to complete this topic [facility]-Diabetes: Hemoglobin A1C Discontinued 04/27/2021 HPV Vaccines Aged Out No longer eligi ble based on patient's age to complete this topic [facility]-HIB Vaccines Aged Out No longer e ligible based on patient's age to complete this topic [facility]-IPV Vaccines Aged Out No longer e ligible based on patient's age to complete this topic [facility]-Rotavirus Vaccines Aged Out No lo nger eligible based on patient's age to complete this topic Insurance MEDICARE [facility] Care Teams Agriculture Science Teacher Relationship Specialty Start Date End Date Unruly Damon MD [address] [place] [id number] PCP - General 11/13/20
--- OUTSIDE RECORDS SUMMARY | 2024-12-19 08:43 | XMS_ITS | Data Portability ---
Author Organization GABRIELA SAHRA Nunez REKLAW CLOSED Address [address] [facility] [address] [place] [address] Care Team Providers Care Window Cutter Name Role Phone ANNIA MEDRANO Primary Care Provider [phone] Assessment Encounter Date Assessment Date Assessment LastModified by Organization Details LastModified Time 08/11/2022 08/11/2022 f/u 6 months [email or web address] Not available 0 08/11/2022 10:52:05 01/23/2024 01/23/2024 f/u 6 months ; full body skin check Not available 01/23/2024 14:34:55 08/06/2024 08/06/2024 f/u 6 months ; full body skin check Not available 08/01/2024 11:20:44 Plan of Treatment Reminders Order Date Submit Date Provider Last Modified By Organization Details Last Modified Time Details Appointments DERMATOLO GY VISIT 2024 10:45A M MADDISON MCCALL DO Not available Not available Not available Lab surgical pathology study - right nasal bridge r/o ak vs. SCCis 2024 025 MILAN [facility], [address] [facility], [place], [address], 08/07/2024 14:23:09 urinalysi s panel, auto 2023 024 [email or web address] Formerly [facility], [address] [place] [address] [address], [address], [place], [address], 08/17/2023 14:37:32 Referral None recorded. Procedures None recorded. Surgeries None recorded. Imaging None recorded. Medication Orders clobetaso l 0.05 % topical cream [email or web address] [facility] [address] [facility], [address], [address], 01/23/2024 14:35:40 imiquimod 5 % topical cream packet [email or web address] [facility], [address], [address], 08/11/2022 11:14:45 Patient TargetsNo targets recorded. Patient Instructions Encounter Date Encounter Id Patient Instructions Last Modified By Organization Details Last Modified Time 08/11/2022 [id number] If any lesions change, or if any other new or symptomatic lesions occur, patient understands to return to the clinic for further evaluation Discussed sun precautions; SPF 30+ [email or web address] Not available 08/11/2022 11:13:15 01/23/2024 [id number] If any lesions change, or if any other new or symptomatic lesions occur, patient understands to return to the clinic for further evaluation Discussed sun precautions; SPF 30+ [email or web address] Not available 01/23/2024 14:28:47 08/06/2024 [id number] If any lesions change, or if any other new or symptomatic lesions occur, patient understands to return to the clinic for further evaluation Discussed sun precautions; SPF 30+ Not available 08/01/2024 11:20:44 Reason for Referral None Reported. Results Created Date Observation Date Name Description Value Unit Range Abnormal Flag Note LastModifiedBy Organization Detail LastModifiedTime 02/09/20 22 02/08/2022 SURGI HUI surgical SEE BELOW Depar tment of Patho logy Surgi hui Patho logy Repor t NAME: ANA MARIA RACHELLE MEGAN PATH. :SC-2 4:48 PMCop y to: Diagn osis: Right nasal root: Actin ic kerat osis with moder ate atypi a. Note: Some areas of the lesio n appro ach a diagn osis of squam ous cell carci noma in situ. SOURC E OF SPECI MEN: SKIN BIOPS Y, RIGHT NASAL ROOT CLINI HUI INFOR MATIO N: D48.5 R/O SCC Gross Descr iptio n: Recei madina in forma zhen label ed with the patie nt's name and desig nated as righ t nasal root is a shave biops y of skin (0.7 x 0.6 x 0.1 cm). The epide rmal surfa ce is white and rough ened. The chris n is inked blue. The speci men is trise cted and entir taras submi tted in one casse tte. JAB 02/08 0 Micro scopi c Descr iptio n: A micro scopi c exami natio n has been perfo rmed and the resul t(s) are as noted above . DINORA HERNADNEZ M.D. Agnieszka d Out Date: 02/09 14:36 Page 1 of 1 Not Available [facility] [address] [place] [address], [address], 02/09/2022 14:37:32 08/15/19 24 08/15/2023 urina lysis panel , auto Unknown Analyte Clean Catch Not Available [facility] [address], [place], [address], 08/15/2023 15:21:55 08/15/19 24 08/15/2023 urina lysis panel , auto Unknown Analyte Yellow Not Available [facility] [address] [place] [address] [address], [place], [address], 08/15/2023 15:21:55 08/15/19 24 08/15/2023 urina lysis panel , auto Unknown Analyte Clear Not Available [facility] [address], [place], [address], 08/15/2023 15:21:55 08/15/19 24 08/15/2023 urina lysis panel , auto Unknown Analyte 1.015 Not Available [facility] [address], [place], [address], 08/15/2023 15:21:55 08/15/19 24 08/15/2023 urina lysis panel , auto Unknown Analyte 1.003- 1.035 Not Available [facility] [address], [place], [address], 08/15/2023 15:21:55 08/15/19 24 08/15/2023 urina lysis panel , auto Unknown Analyte 5.0 Not Available [facility] [address], [place], [address], 08/15/2023 15:21:55 08/15/19 24 08/15/2023 urina lysis panel , auto Unknown Analyte 5.0-8. 0 Not Available [facility] [address], [place], [address], 08/15/2023 15:21:55 08/15/19 24 08/15/2023 urina lysis panel , auto Unknown Analyte 500 Roma/ul (++) Not Available [facility] [address], [place], [address], 08/15/2023 15:21:55 08/15/19 24 08/15/2023 urina lysis panel , auto Unknown Analyte Negati ve Not Available [facility] [address], [place], [address], 08/15/2023 15:21:55 08/15/19 24 08/15/2023 urina lysis panel , auto Unknown Analyte Negati ve Not Available [facility] [address], [place], [address], 08/15/2023 15:21:55 08/15/19 24 08/15/2023 urina lysis panel , auto Unknown Analyte Negati ve Not Available [facility] [address], [place], [address], 08/15/2023 15:21:55 08/15/19 24 08/15/2023 urina lysis panel , auto Unknown Analyte Negati ve Not Available [facility] [address], [place], [address], 08/15/2023 15:21:55 08/15/19 24 08/15/2023 urina lysis panel , auto Unknown Analyte Negati ve Not Available [facility] [address], [place], [address], 08/15/2023 15:21:55 08/15/19 24 08/15/2023 urina lysis panel , auto Unknown Analyte Normal Not Available [facility] [address], [place], [address], 08/15/2023 15:21:55 08/15/19 24 08/15/2023 urina lysis panel , auto Unknown Analyte Normal Not Available [facility] [address], [place], [address], 08/15/2023 15:21:55 08/15/19 24 08/15/2023 urina lysis panel , auto Unknown Analyte Negati ve Not Available [facility] [address], [place], [address], 08/15/2023 15:21:55 08/15/19 24 08/15/2023 urina lysis panel , auto Unknown Analyte Negati ve Not Available [facility] [address], [place], [address], 08/15/2023 15:21:55 08/15/19 24 08/15/2023 urina lysis panel , auto Unknown Analyte Normal Not Available [facility] [address], [place], [address], 08/15/2023 15:21:55 08/15/19 24 08/15/2023 urina lysis panel , auto Unknown Analyte Normal 1 mg/dl Not Available [facility] [address], [place], [address], 08/15/2023 15:21:55 08/15/19 24 08/15/2023 urina lysis panel , auto Unknown Analyte Negati ve Not Available [facility] [address], [place], [address], 08/15/2023 15:21:55 08/15/19 24 08/15/2023 urina lysis panel , auto Unknown Analyte Negati ve Not Available [facility] [address], [place], [address], 08/15/2023 15:21:55 08/15/19 24 08/15/2023 urina lysis panel , auto Unknown Analyte 50 Vick/ul Not Available [facility] [address], [place], [address], 08/15/2023 15:21:55 08/15/19 24 08/15/2023 urina lysis panel , auto Unknown Analyte Negati ve Not Available [facility] [address], [place], [address], 08/15/2023 15:21:55 08/06/19 25 08/06/2024 SURGI HUI surgical SEE BELOW normal Surgi uhi Patho logy Repor t NAME: MEGAN FIELDS PATH: SC-[id number] DATE of : 11/22 77 Copy to: Diagn osis: Right nasal bridg e: Actin ic kerat osis. SOURC E OF SPECI MEN: SKIN BIOPS Y, RIGHT NASAL BRIDG E CLINI HUI INFOR MATIO N: D48.5 SPECI MEN COLLE CTION NOTES : R/O AK VS. SCCIS Gross Descr iptio n: Collin nt's name and date of verif ied. Recei madina in forma zhen label ed with the patie nt's name and desig nated righ t nasal bridg e is a shave biops y of skin (0.6 x 0.6 x 0.1 cm). The epide rmal surfa ce is pale- perrin/w rik and rough ened. The chris n is inked blue. The speci men is bisec mason and entir taras submi tted in one casse tte label ed A1. SB 08/06 08:44 PM Micro scopi c Descr iptio n: A micro scopi c exami natio n has been perfo rmed and the resul t(s) are as noted above . DINORA HERNANDEZ MD Agnieszka d Out Date: 08/07 14:22 Page 1 of 1 Not Available [facility] [address] [place] [address], [address], 08/07/2024 14:23:09 Result Notes None recorded. Problems Name Problem SNOMED Code Status Onset Date Resolution Date Notes Provider Name and Address Organization Details Recorded Time Actinic keratosis 610415368 Active 2015 From Automated Load;Provi familia: Cal, Maddison;S tatus: Active Not Available [facility] 7 07:38:03 Senile hyperkera tosis 739918933 Active 2015 From Automated Load;Provi familia: Cal, Maddison;S tatus: Active Not Available [facility] 6 02:57:40 Lentigo Active 2015 From Automated Load;Provi familia: Cal, Maddison;S tatus: Active Not Available [facility] 6 02:57:40 Hemangiom a 486369060 Active 2015 From Automated Load;Provi familia: Maddison Mccall;S tatus: Active Not Available [facility] 6 02:57:40 Problem Notes None recorded. Procedures Surgical History Date Name Laterality Status Provider Name and Address Organization Details Recorded Time 025 Biopsy Skin Lesion; Tangential completed Petty Stewart [facility] 08/06/2024 12:15:25 025 Destruction BN [facility] 12:30:09 024 Destruction Premalignant Lesion(s) completed MADDISON MCCALL DO [address] [place], [address], [facility] 01/23/2024 18:02:55 024 Destruction BN Lesions completed MADDISON MCCALL DO [address] [place], [address], [facility] 01/23/2024 18:02:56 022 Destruction Premalignant Lesion(s) completed MADDISON MCCALL DO [address] [place], [address], [facility] 02/16/2022 17:08:20 022 Biopsy Skin Lesion; [facility] 02/08/2022 11:43:01 022 Destruction Premalignant Lesion(s) completed [facility] 02/08/2022 11:43:10 021 Biopsy Skin Lesion; Tangential completed [facility] 06/21/2021 11:35:50 021 Destruction Premalignant Lesion(s) completed [facility] 06/21/2021 11:32:51 021 Biopsy Skin Lesion; Tangential completed [facility] 02/08/2021 12:00:49 021 Destruction Premalignant Lesion(s) completed [facility] 02/08/2021 12:00:12 017 Uroflowmetry; Complex completed [facility] 09/14/2016 16:27:33 017 Urodynamics completed [facility] 09/14/2016 16:32:46 tonsillectomy completed [facility] 08/15/2023 15:16:09 procedure on eye completed [facility] 08/15/2023 15:16:20 Cholecystectomy completed [facility] 09/14/2016 14:09:27 Hysterectomy completed [facility] 09/14/2016 14:09:33 Ligation of hemorrhoid(s) completed [facility] 09/14/2016 14:10:10 Xcapsl ctrc rmvl cplx wo ecp completed [facility] 09/14/2016 14:11:28 Imaging Results None recorded. Procedure Notes None recorded. Medical Equipment None Reported. Allergies Allergen ID Allergen Name Allergen Category Reaction Reaction Severity Criticality Documentation Date Start Date Code Code System Note Provider Name and Address Organization Details Recorded Time 791309 Vytorin medicatio n other Not available Not available 05/26/20162014 71112 UNK React ion: OTHER ; Comme nt: Creat ed By: Liliane Espitia ;Crea mason Date: 2014 1:46: 12 PM; Not Available [facility] 6 13:35:41 899267 Product containin g penicilli n (product) medicatio n Not available Not available Not available 05/27/20162009 36418 8001 SNOMED Comme nt: Creat ed By: Marky de la fuente; Creat ed Date: 2009 8:41: 50 AM; Not Available [facility] 6 03:40:31 894923 Celebrex medicatio n other Not available Not available 05/27/20162014 78952 7 RxNorm React ion: OTHER ; Comme nt: Creat ed By: Liliane Espitia ;Crea mason Date: 2014 1:46: 44 PM; Not Available [facility] 6 03:40:31 986143 purified protein derivativ e of tuberculi n medicatio n other severe Not available 09/14/20161960 8948 RxNorm Sever ed arm nancy ing/r ednes s of arm Nupur Hernandez [facility] 7 10:02:31 Medications Name Sig Start Date Stop Date Status Note LastModified by Organization Details LastModified Time clobetaso l 0.05 % topical cream Apply to areas of eczema on the feet twice a week as needed 2023 active Not Available Not Available Not Avai lable Plavix 75 mg tablet Daily 09/14 completed Frequenc y: daily;Me dication Descript ion: clopidog rel; Dosage:1 ; Route:or al; refills: 5; Quantity :30 tablet Not Available Not Available Not Available omeprazol e 40 mg capsule,d elayed release Take 1 capsule every day by oral route. active Not Available Not Available No t Available aspirin 81 mg tablet,de layed release Take 1 tablet every day by oral route. 2015 active Not Available Not Available Not Avai lable Nitroling ual 0.4 mg/SPRAY spray As needed 09/23 completed Frequenc y: prn;Alt Frequenc y: at onset;Me dication Descript ion: nitrogly cerin; Dosage:1 ; Route:menezes blingual ; refills: 2; Quantity :25 spray Not Available Not Available Not Available bethanech ol chloride 25 mg tablet Take 1 tablet 4 times a day by oral route. 09/23 completed Not Available Not Available Not Available Macrobid 100 mg capsule Take 1 capsule every day by oral route for 90 days. 06/21 completed Not Available Not Available Not Available Valium 5 mg tablet Bedtime 09/23 completed Frequenc y: hs;Alt Frequenc y: as direct.; Medicati on Descript ion: diazepam ; Dosage:1 ; Route:or al; refills: 11; Quantity :30 tablet Not Available Not Available Not Available imiquimod 5 % topical cream packet active Not Available Not Available Not Available lansopraz ole 30 mg capsule,d elayed release Take 1 capsule every day by oral route. active Not Available Not Available No t Available metoprolo l tartrate 50 mg tablet Take 1 tablet twice a day by oral route. active Not Available Not Available No t Available monteluka st 10 mg tablet active Medicati on Descript ion: monteluk ast; Route:or al; refills: 0 Not Available Not Available Not Available Vitamin D2 1,250 mcg (50,000 unit) capsule 07/03 completed Medicati on Descript ion: ergocalc iferol; Route:or al; refills: 0 Not Available Not Available Not Available ramipril 5 mg capsule Take 1 capsule every day by oral route. active Not Available Not Available No t Available loratadin e 10 mg tablet Daily 09/23 completed Frequenc y: daily;Me dication Descript ion: loratadi ne; Dosage:1 ; Route:or al; refills: 5; Quantity :30 tablet Not Available Not Available Not Available Bactrim DS 800 mg-160 mg tablet Take 1 tablet every 12 hours by oral route for 14 days. 02/08 completed Not Available Not Available Not Available Taztia XT 360 mg capsule,e xtended release Daily 09/23 completed Duration : 30 days;Ins truction s: TAKE ONE CAPSULE BY MOUTH ONCE DAILY DIRECTED ;Frequen cy: daily;Al t Frequenc y: as direct.; Medicati on Descript ion: diltiaze m; Dosage:1 ; Route:or al; refills: 5; Quantity :30 capsule, extended release Not Available Not Available Not Available rosuvasta tin 10 mg tablet Take 1 tablet every day by oral route. active Not Available Not Available No t Available melatonin 09/23 completed Medicati on Descript ion: melatoni n; refills: 0 Not Available Not Available Not Available Vitamin C 06/21 completed Not Available Not Available Not Available Calcium 600 06/21 completed Not Available Not Available Not Available biotin 1000 mcg active Not Available Not Avai lable Not Available isosorbid e active Not Available Not Available Not Available Vitamin D3 25mg active Not Available Not Available Not Available multivita min active Not Available Not Available Not Available Women's Laxative (bisacody l) active Not Available Not Available Not Available Ranexa 500 mg tablet,ex tended release Two times a day 09/23 completed Frequenc y: bid;Alt Frequenc y: as direct.; Medicati on Descript ion: ranolazi ne; Dosage:1 ; Route:or al; refills: 5; Quantity :60 tablet, extended release Not Available Not Available Not Available PreserVis ion AREDS-2 active Not Available Not Available Not Available Vitals Date Recorded Body height Body mass index (BMI) Body weight Provider Name and Address Organization Details Last Updated DateTime 08/15/2023 152.4 cm 19.5 kg/m2 86740.24 g Tatum Botello [facility] 08/15/2023 15:15:14 Social History Question Answer Notes LastModified by Organizat ion Details LastModified Time Tobacco Smoking Status Never Smoker Lizzy escalante, [facility] 09/14/2016 14:09:12 How Much Tobacco Do You Chew? None [email or web address] Information not available 11/06/2019 What Is Your Relationship Status? Information not available 08/15/2023 How Much Tobacco Do You Smoke? No [email or web address] Information not available 11/06/2019 Sex: Unknown Functional Status Question Answer Note LastModified by Organization D etails LastModified Time What is your level of alcohol consumption? None [email or web address] Information not available 09/14/2016 Mental Status None recorded. Family History Relationship Description Onset Age of this Age Resolved Age Notes LastModified by Organization Details LastModified Time Unspecified Relation Family history of malignant neoplasm angelaMarisela Not available 14:08:18 Unspecified Relation Diabetes mellitus norbert Not available 14:08:27 Medical History Condition Response Radiation Therapy Y Anemia Y Arthritis Y False Teeth Y High Cholesterol Y Heart Disease Y Cancer Y Hypertension Y Asthma Y Gynecological HistoryNo gynecological history recorded. Obstetrics History GPAL:G 0 P 0 0 0 0 Past Encounters Encounter ID Performer Location Encounter Start Date Encounter Closed Date Diagnosis/Indication Diagnosis SNOMED-CT Code Diagnosis ICD10 Code Diagnosis Note [id number] MD ABRIL [facility] [address] [place] [address] 09/14/2016 09:43:35 09/22/2016 09:16:31 Female stress incontinence 20389039 N39.3 Urge incon tinence of urine 54159486 N39.41 [id number] IMMANUEL BOWLES MD [facility] [address] [place] [address] 09/14/2016 13:40:22 09/15/2016 11:50:30 Genuine stress incontinence 09827233 N39.3 Retention of urine 38650 4002 R33.9 She will follow-up in 3 weeks and we will repeat her bladder scan for postvoid residual [id number] MD [facility] [address] [place] [address] 09/24/2019 15:44:08 09/24/2019 16:12:13 Urinary tract infectious disease 99611041 N39.0 plan as above follow-up 6 weeks [id number] MD ABRIL [facility] [address] [place] [address] 11/06/2019 13:20:48 11/06/2019 14:11:05 Genuine stress incontinence 29520011 N39.3 we will arrange for trans-obtu rator tape. Chronic cystitis 9697219 2 N30.20 plan as above [id number] MADDISON MCCALL DO [facility] [address] [place] [address] 02/08/2021 10:42:11 02/08/2021 12:29:45 Actinic keratosis 450154452 L57.0 Education then treated with LN; x1 pt tolerated well advised pt what to expect with freezing Seborrheic dermatitis 50 778257 L21.9 mild on scalpdandr uff shampoo prn Neoplasm o f uncertain behavior of skin 89618206 D48.5 right nasal sidewallr/ o sccshave biopsy performeds ent for [facility]see [facility] instructio franck providedpa tient consents for procedure and photo monitoring Eczema 59583068 L30.9 left foot> R footchroni cintermitt entclobeta gwen worked well in past, but is out of creamrefil led clobetasol cream- as aboveuse as directed History of malignant basal cell neoplasm of skin 125255664 Z85.828 no recurrence History of squamous cell carcinoma of skin 222276470 Z85.828 no recurrence [id number] MADDISON MCCALL DO [facility] [address] [place] [address] 06/21/2021 11:10:42 06/21/2021 11:43:10 Actinic keratosis 643073963 L57.0 Education then treated with LN; upper forehead x1pt tolerated welladvise d pt what to expect with freezing Seborrheic dermatitis 50 771705 L21.9 stablechro mariann dandruff shampoo prn- seems to be controllin g well. Eczema 98948330 L30.9 chroniccle ar today per pt, did not examinept declined examclobet asol prnuse as directed History of malignant basal cell neoplasm of skin 144674909 Z85.828 no recurrence History of squamous cell carcinoma of skin 928671488 Z85.828 no recurrence Neoplasm o f uncertain behavior of skin 12178477 D48.5 base of left 3rd fingerr/o bccshave biopsy performeds ent for pathsee [facility] instructio franck providedpa tient consents for procedure and photo monitoring Raised rosy orrheic keratosis 5562503457 72024 L82.1 benignreas surance [id number] DO IRENE FRIEND [facility] [address] [place] [address] 06/23/2021 13:49:16 06/23/2021 14:32:47 Wound of skin 426879517 T14.8XXA left 3rd finger bx site area had been bleeding significan tly since 05/22 after bx Appears to be a venous area, pinpoint, bleedingI anesthetiz ed and cauterized the area.I also placed a fast ab sutureShe should not have any further issues, but call if further bleeding. [id number] DO IRENE FRIEND [address] [place] [address] 02/08/2022 11:18:20 02/08/2022 11:57:29 Actinic keratosis [id number] L57.0 Education then treated with LN; R upper antihelix x1pt tolerated welladvise d pt what to expect with freezing Seborrheic dermatitis 50 005322 L21.9 stablechro nicdandruf f shampoo prn- seems to be controllin g well. Eczema 94384537 L30.9 chroniccle ar todayclobe tasol prn - doesnt need refills at this time , will call when she doesuse as directed History of malignant basal cell neoplasm of skin 037585074 Z85.828 no recurrence History of squamous cell carcinoma of skin 529548704 Z85.828 no recurrence Raised rosy orrheic keratosis 1724823557 35639 L82.1 Benign Reassuranc e History of atypical nevus 4119183856 101 Z86.018 no recurrence Neoplasm o f uncertain behavior of skin 93581084 D48.5 R nasal rootshave biopsysent for pathr/o SCCWound care discussed with patient. Leave the bandage on for 24 hrs. Clean the area daily with warm soapy water, and apply polysporin ointment and a bandaid once daily until healed. Call the office if any increase in redness, drainage, or pain. [id number] DO IRENE FRIEND [address] [place] [address] 02/16/2022 14:17:09 02/16/2022 15:27:17 Actinic keratosis L57.0 right nasal rootAK with mod atypia, per path, some areas of lesion approachin g SCC in situopted to EDC lesion over cryo, due to atypia approachin g SCC in situDiscus sed diagnosisr ecommend treatment with ED&Cr/a/b of procedure discussed with patientinf ormed consent signedsee procedure notef/u 4-6 months for FSEWound care discussed with patient. Leave the bandage on for 24 hrs. Clean the area daily with warm soapy water, and apply polysporin ointment and a bandaid once daily until healed. Call the office if any increase in redness, drainage, or pain. LN x1 on AK on left hand [id number] MADDISON MCCALL, DO [facility] [address] [place] [address] 08/11/2022 10:47:45 08/11/2022 11:15:48 Eczema 71133233 L30.9 chroniccle ar todayclobe tasol prn - doesnt need refills at this time , will call when she doesuse as directed Seborrheic dermatitis 50 143483 L21.9 stablechro nicdandruf f shampoo prn- seems to be controllin g well. History of malignant basal cell neoplasm of skin 624091422 Z85.828 no recurrence History of squamous cell carcinoma of skin 409833682 Z85.828 no recurrence History of atypical nevus 2944343146 101 Z86.018 no recurrence Raised rosy orrheic keratosis 8027632713 73263 L82.1 Benign Reassuranc e Actinic keratosis 007 L57.0 discussed diagnosisc hronicexac erbationI will have her tx topically start imiquimod cream as directedAd vised patient that areas will become red, scabby, and crusty f/u in 6m [id number] IMMANUEL BOWLES MD [facility] [address] [place] [address] 08/15/2023 15:08:28 08/15/2023 16:40:16 Cyst of kidney [id number] N28.1 Follow-up in December to review her CT scan performed in December at [facility] [id number] MADDISON MCCALL DO [facility] [address] [place] [address] 01/23/2024 13:12:30 01/23/2024 15:11:17 Eczema 73659322 L30.9 chronicsta bleclear todayclobe tasol prn - refilledon ly uses for flares Seborrheic dermatitis 50 343267 L21.9 stablechro nicdandruf f shampoo prn- seems to be controllin g well. History of malignant basal cell neoplasm of skin 483712342 Z85.828 no recurrence History of squamous cell carcinoma of skin 685978898 Z85.828 no recurrence History of atypical nevus 3772274964 101 Z86.018 no recurrence Raised rosy orrheic keratosis 7423934375 63996 L82.1 Benign Reassuranc e Actinic keratosis 407779 007 L57.0 chronic Education then treated with surgical curette; right nasal root X2 (residual) cleansed with alcohol anesthetiz ed with lido/epipt tolerated wellpolysp estelita and bandaid appliedWou nd care discussed with patient. Education then treated with LN; right dorsal hand X1pt tolerated welladvise d pt what to expect with freezing Inflamed s eborrheic keratosis 478088323 L82.0 Education then treated with LN; right upper back T4Ijplst, Irritated, & bothersome to patientpt tolerated welladvise d pt what to expect with freezingre commended pt to apply aquaphor on the areas listed above to improve healing Tenderness of skin 48330 9000 R20.8 ISK ; bothersome [id number] MADDISON MCCALL DO [facility] [address] [place] [address] 08/06/2024 11:50:30 08/06/2024 12:28:21 Eczema 38896393 L30.9 chronicsta bleclear todayclobe tasol prn - no refills needed todayonly uses for flares Seborrheic dermatitis 50 170934 L21.9 stablechro nicdandruf f shampoo prn- seems to be controllin g well. History of malignant basal cell neoplasm of skin 835660853 Z85.828 no recurrence History of squamous cell carcinoma of skin 490626115 Z85.828 no recurrence History of atypical nevus 3711830603 101 Z86.018 no recurrence Raised rosy orrheic keratosis 6587110382 32684 L82.1 Benign Reassuranc e Neoplasm o f uncertain behavior of skin 34422855 D48.5 right nasal bridge r/o ak vs. SCCisthis is not the same area of biopsy in 2021, reviewed imageshave biopsysee procedure notewound care instructio ns providedpa tient consents for procedure and photo monitoring Wound care discussed with patient. Leave the bandage on for 24 hrs. Clean the area daily with warm soapy water, and apply polysporin ointment and a bandaid once daily until healed. Call the office if any increase in redness, drainage, or pain. Severe dry skin 27586935 2 L85.3 Discussed tx optionsPat ient cannot use dove due to allergyrec ommended pt to use olay soap to help with dryness but also gave her samples of Cara Posay Lipkar gentle foaming cleansing oil today to also help with drynesspt will call if areas worsen or do not improve Inflamed s eborrheic keratosis 282223759 L82.0 Education then treated with LN; left shoulder m3Ruihxo, Irritated, & bothersome to patientpt tolerated welladvise d pt what to expect with freezingre commended pt to apply aquaphor on the areas listed above to improve healing Tenderness of skin 69767 9000 R20.8 ISK ; bothersome excoriated Health Concerns Section Related Observation LastModified by Organization Detai ls LastModified Time None Recorded Concern Status LastModified by Organization Details LastModified Time None Recorded Advance Directives Directive None Recorded Payers Insurance Date Sequence Insurance Name Policy Number Policy Nash Covered Member ID Nash Member ID Guarantor Name 08/15/2023 2 [employer] (INDEMNITY) [id number] Megan Pineda [id number] Megan Pineda 08/03/2024 1 [place] Megan Pineda [id number] Megan Pineda 08/03/2024 2 [place] [id number] Megan Pineda [id number] Megan Pineda Notes Date Note Type Note Provider Name and Address Organization Details Recorded Time 02/16/2022 text/html Established Patient Presents for edc of AK on right nasal root Denies any other new or changing lesions. Feels well today. Denies family history of malignant melanoma. MADDISON MCCALL DO [address] [place], [address], [facility] 02/16/2022 17:09:21 08/11/2022 text/html Established Patient Presents for full skin exam. check spots/moles over body skin lesion on her R forearm , been present for x months, wants benign reassurance on them h/o BCC , SCC , DN Denies any other new or changing lesions. Feels well today. Denies family history of malignant melanoma. MADDISON MCCALL DO [address] [place], [address], [facility] 08/11/2022 17:47:08 08/15/2023 text/html Patient is here last seen by me in 2019. She has previous history of chronic cystitis as well as mixed urinary incontinence. She had urodynamics and 2018 which confirmed recurrent stress urinary incontinence. At that time we discussed repeat suburethral sling. In the interim she was diagnosed with lung cancer and underwent CyberKnife therapy. At her last visit she had been on Macrobid nightly for suppression. During your recent follow-up from treatment of lung cancer it was noted that she had a lesion of her right kidney. This was at [facility]. I reviewed this and looks to be likely a renal cyst. She is due for repeat CT scan and December. I suggest we follow this. IMMANUEL BOWLES MD [address] [place], [address], [facility] 08/17/2023 14:38:15 01/23/2024 text/html Established Patient Presents for full skin exam. right shoulder, lip, and side of nose. check spots/moles over body h/o BCC , SCC , DN Denies any other new or changing lesions. Feels well today. Denies family history of malignant melanoma. MADDISON MCCALL DO [address] [place], [address], [facility] 01/23/2024 18:03:50 08/06/2024 text/html Established Patient Presents for full skin exam. Patient notes skin lesion on bridge of nose, treated with LN RENETTA and per pt it has reoccurred. f/up eczema Patient notes exacerbation on kishor feet currently, patient has check spots/moles over body h/o BCC , SCC , DN Denies any other new or changing lesions. Feels well today. Denies family history of malignant melanoma. MADDISON MCCALL DO [address] [place], [address], [facility] 08/06/2024 13:20:49 OBGyn Episode No OBEpisode recorded.
== END 2024-12-19 23:59 | disposition home or self-care (01) ==
LOC: RAD 08:38
PROVIDERS: PCP Nurse Practitioner Family; Visit Provider Orthopaedic Surgery
DX: S42.252D Displaced fracture of greater tuberosity of left humerus, subsequent encounter for fracture with routine healing (principal); M19.012 Primary osteoarthritis, left shoulder
CPT/HCPCS: 73060

== ENCOUNTER 2025-01-27 10:45 | Outpatient (CLI) | payer MEDICARE, BC, SELFPAY ==
[2025-01-27 11:00] VITALS: BP 122/67; PULSE 74; RESP 16; TEMP 36.6; O2SAT 98
[2025-01-27] MEDS: DENOSUMAB 60 MG/ML SYRINGE SUBCUT (11:00)
--- OUTSIDE RECORDS SUMMARY | 2025-01-27 11:14 | XMS_ITS | Clinical Summary ---
Author Organization [facility] Address [address] [place] [address] Care Team Providers Care Oracle Apex Developer Name Role Phone Unruly Damon MD Primary Care Provider [phone] Social History Tobacco Use Types Packs/Day Years [...] or (1 - 1-dose 75+ series) 2016 [id number] Vaccine ( season) 2024 11/12/2021, 02/24/2021, 09/09/2020, Additional history exists [facility]-Influenza Vaccine (#1) 2025 04/24/2017 [facility]-Hepatitis A Vaccines Aged Out 05/10/2018, 0508/2017 No longer eligible based on patient's age [...] age to complete this topic Insurance MEDICARE [facility] Care Teams Oracle Apex Developer Relationship Specialty Start Date End Date Unruly Damon MD [address] [place] [id number] PCP - General 11/13/20
--- OUTSIDE RECORDS SUMMARY | 2025-01-27 11:14 | XMS_ITS | Clinical Summary ---
Author Organization [facility] Address [address] [place] [address] Care Team Providers Care Rodent Exterminator Name Role Phone ShandaJuliette santana Sima MARGARITO Primary Care Provid er Allergies Active Allergy Reactions Criticality Noted Date Comments Celecoxib Other (See Comments),Rash High 02/25/2015 Celebrex Ezetimibe-Simvastatin Myalgia,Other (See Comments) Low 02/25/2015 Vytorin Penicillins Hives,Rash,Unknown - Low Severity Low 07/31/2009 Product containing penicillin (product) Rofecoxib Anaphylaxis,Hives,Sw el ling,Other (See Comments) High 02/18/2020 Tuberculin Purified Protein Derivative Irritability 12/21/2023 Tuberculin Tests Anaphylaxis,Hives,Sw el ling High 02/18/2020 Tuberculin, Ppd Other (See Comments) High 07/03/1960 purified protein derivative of tuberculin Medications aspirin 81 MG chewable tablet Chew 1 tablet Daily. WILL HOLD AFTER 01/29/24 Active rosuvastatin (CRESTOR) 10 MG tablet Take 1 tablet by mouth Every Night. Active omeprazole (priLOSEC) 40 MG capsule Take 1 capsule by mouth Daily. 10/26/2020 Active Cholecalciferol (Vitamin D-3) 25 MCG (1000 UT) capsule Take 1,000 Units by mouth Daily. Active QUEtiapine (SEROquel) 25 MG tablet Take 1 tablet by mouth Every Night. 12/13/2021 Active metoprolol succinate XL (TOPROL-XL) 50 MG 24 hr tablet Take 1.5 tablets by mouth Daily. 11/23/2021 Active isosorbide mononitrate (IMDUR) 30 MG 24 hr tablet Take 1 tablet by mouth Daily. 11/16/2021 Active mirtazapine (REMERON) 15 MG tablet Take 1 tablet by mouth every night at bedtime. 11/02/2022 Active ramipril (ALTACE) 2.5 MG capsule Take 1 capsule by mouth Daily. 04/25/2024 Active Active Problems Problem Noted Date Diagnosed Date Malignant neoplasm of upper lobe bronchus, right 01/24/2024 Paraesophageal hernia 04/29/2021 Non-small cell lung cancer 06/09/2020 Cancer Staging:Clinical:Stage IA2(cT1b, cN0, cM0) - Signed by Jasmeet Garzon MD on 06/09/2020 Mediastinal adenopathy 03/05/2020 Overview (03/05/2020): Added automatically from request for surgery [id number] Encounters Date Type Department Care Team Description 11/11/2024 3:00 PM EDT Office Visit [facility] [address] [place] [address] Cj Mckeon MD Non-small cell cancer of right lung (Primary Dx) 11/11/2024 2:30 PM EDT Office Visit [facility] [address] [facility] [address] [place] [address] Jasmeet Garzon MD Malignant neoplasm of upper lobe bronchus, right (Primary Dx) 11/11/2024 6:30 AM EDT - 11/11/2024 11:59 PM EDT Hospital Encounter [facility] [address] [facility] [address] [place] [address] Discharge Disposition: Home or Self Care 11/11/2024 Travel 11/08/2024 10:15 AM EDT - 11/08/2024 11:59 PM EDT Hospital Encounter [facility] AT [address] [place] [address] Cj Mckeon MD Malignant neoplasm of upper lobe, right bronchus or lung Discharge Disposition: Home or Self Care 11/08/2024 Travel from Last 3 Months Family History Medical History Relation Name Comments Heart failure Brother 1 Cancer Brother 2 Colon cancer Brother 2 Cirrhosis Brother 3 No Known Problems Brother 4 No Known Problems Brother 5 Heart failure Father No Known Problems Maternal Aunt No Known Problems Maternal Grandfather No Known Problems Maternal Grandmother No Known Problems Maternal Uncle Diabetes Mother Heart failure Mother No Known Problems Paternal Aunt No Known Problems Paternal Grandfather No Known Problems Paternal Grandmother No Known Problems Paternal Uncle No Known Problems Sister 1 No Known Problems Sister 2 Cancer Sister 3 Lung cancer Sister 3 Cancer Sister 4 Kidney cancer Sister 4 Cancer Sister 5 Pancreatic cancer Sister 5 Relation Name Status Comments Brother 1 Brother 2 Brother 3 Brother 4 Brother 5 [place] of Meningitis at age 3 Father Maternal Aunt Alive Maternal Grandfather Maternal Grandmother Maternal Uncle Alive Mother Paternal Aunt Other Paternal Grandfather Paternal Grandmother Paternal Uncle Other Sister 1 Alive Sister 2 Alive Sister 3 Alive Sister 4 Alive Sister 5 Social History Tobacco Use Types Packs/Day Years Used Date Smoking Tobacco: Former Cigarettes 1 44 1 954 - 07/20/1997 Smokeless Tobacco: Never Tobacco Cessation:Counseling Given: Not Answered Alcohol Use Standard Drinks/Week Comments Not Currently 0 (1 standard drink = 0.6 oz pur e alcohol) PHQ-2 Answer Date Recorded Retired PHQ-9: Brief Depression Severity Measure Score 0 12/13/2022 Abuse Screen Answer Date Recorded Feels Unsafe at Home or Work/School no 11/11/2024 Feels Threatened by Someone no 10/31 Does Anyone Try to Keep You From Having Contact with Others or Doing Things Outside Your Home? no 11/11/2024 Physical Signs of Abuse Present no 11/11/2024 Disabilities Answer Date Recorded Difficulty Concentrating, Remembering or Making Decisions no 02/01/2024 Doing Errands Independently Difficulty Not on fi le 02/01/2024 Education Answer Date Recorded Help with school or training? Not on file Preferred Language Maltese 01/29/2024 PHQ-2 Answer Date Recorded Patient Health Questionnaire-9 Score 0 11/11/2024 Comments No Sex and Gender Information Value Date Recorded Sex Assigned at Not on file Legal Sex Female 12:32 PM EDT Gender Identity Not on file Sexual Orientation Not on file Last Filed Vital Signs Vital Sign Reading Time Taken Comments Blood Pressure 155/63 11/11/2024 3:14 PM EDT Pulse 78 11/11/2024 3:14 PM EDT Temperature 35.9 C (96.6 F) 11/11/2024 3:14 PM EDT Respiratory Rate 18 11/11/2024 3:14 PM EDT Oxygen Saturation 98% 11/11/2024 3:14 PM EDT Inhaled Oxygen Concentration - - Weight 47.6 kg (105 lb) 11/11/2024 3:14 PM EDT Height 154.2 cm (5' 0.71 ) 11/11/2024 2:22 PM ED T Body Mass Index 20.03 11/11/2024 2:22 PM EDT Plan of Treatment Upcoming Encounters Date Type Department Care Team (Late st Contact Info) Description 05/14/2025 10:30 AM EST Appointment [facility] AT [address] [phone] 05/16/2025 2:30 PM EST Clinical Support [facility] [address] [place] [address] Cj Mckeon MD [address] [place] [address] 05/19/2025 10:45 AM EST Office Visit [facility] [address] [phone] Jasmeet Garzon MD [address] [phone] Health Maintenance Due Date Last Done Comments DXA SCAN 1941 TDAP/TD VACCINES (1 - Tdap) 1960 Pneumococcal Vaccine 50+ (1 of 1 - PCV) 11/23/1991 ZOSTER VACCINE (1 of 2) 11/23/1991 RSV Vaccine - Adults (1 - 1- dose 75+ series) 2016 ANNUAL WELLNESS VISIT 02/18/2020 COVID-19 Vaccine (2 - 2023-2 5 season) 2024 04/19/2023 INFLUENZA VACCINE 04/02/2025 LUNG CANCER SCREENING Discontinued 11/08/2024 , 01/29/2024, 12/12/2023, Additional history exists Medical Devices Implanted Type Area [employer] Teacher'S Aide Device Identifier Shelf Expiration Date Model / Serial / Lot Mesh Marisel Phasix St Rectg 3x4in Ca/1ea - [id number] Implanted:Qty : 1 on 04/29/2021 by Arslan Evans MD at [facility] Implant N/A: Abdomen DAVOL (DIV OF [employer]) 01/27/2022 [id number] / / [id number] Clipapplr M/ Endo Ligaclip Rot 10mm Md/Lg - [id number] Implanted:Qty : 1 on 04/29/2021 by Arslan Evans MD at [facility] Implant N/A: Abdomen ETHICON ENDO SURGERY DIV OF J AND J [id number] / / Stent X2 Stent Description:Patient unsure, heart stent x2 2014 & 2016 Procedures Procedure Name Priority Date/Time Associated Diagnosis Comments CT CHEST W CONTRAST Routine 11/08/2024 1 1:50 AM EDT Malignant neoplasm of upper lobe, right bronchus or lung from Last 3 Months Results * CT Chest With Contrast Diagnostic (11/08/2024 11:50 AM EDT) Anatomical Region Laterality Modality Chest N/A Computed Tomogra phy 11/13/2024 10:0 2 AM EDT Impressions 11/13/2024 10:22 AM EDT Impression: Similar treatment-related change of the right upper lobe. New cluster of subpleural nodularity in the right middle lobe, the largest discrete nodule measuring approximately 8 mm in diameter. Clustered nodularity is suggestive of an infectious or inflammatory process. Short interval CT follow-up to assess for resolution would be reasonable. Similar subpleural micronodularity in the inferior right upper lobe, similar compared to multiple prior exams, favor chronic process or noncalcified granulomatous disease. Similar appearance of some shotty right hilar lymph nodes without bulky or clearly pathologic adenopathy in the chest. Electronically Signed: Richard Oshea MD 11/13/2024 10:22 AM EDT Workstation ID: [id number] Margarito 11/13/2024 10:[address] CHEST W CONTRAST DIAGNOSTIC Date of Exam: 11/08/2024 10:59 AM EDT Indication: Lung cancer, post SBRT to right lung. Comparison: PET/CT 05/08/2024, chest CT 01/29/2024, 12/12/2023, 06/13/2023 Technique: Axial CT images were obtained of the chest after the uneventful intravenous administration of 85 mL Isovue-300. Reconstructed coronal and sagittal images were also obtained. Automated exposure control and iterative construction methods were used. Findings: There is atherosclerosis of the thoracic aorta and aortic arch branch vessels. Normal appearance of the pulmonary arteries. There are coronary artery calcifications. No pericardial effusion. Homogeneous attenuation of the thyroid gland. No bulky adenopathy in the chest. Suggestion of some shotty right hilar lymph nodes, unchanged. Unremarkable appearance of the chest wall soft tissues. The trachea and mainstem bronchi are patent. The smaller peripheral airways appear unremarkable. There is centrilobular emphysema. Redemonstration of bandlike parenchymal density in the inferior right upper lobe abutting the minor fissure, with some architectural distortion, with thin linear extension to the pleura, compatible with scarring/radiation treatment change. Similar appearance of a micronodular cluster in the inferior- most portion of the right upper lobe (series 2 image 54), unchanged since at least 2022, perhaps reflecting noncalcified granulomatous disease. There is a small subpleural nodular cluster in the right middle lobe (series 2 image 63-67, series 901 image 25) new or enlarged compared to prior chest CT; the largest discrete nodule in this region measures 8 mm in diameter (series 2 image 64, series 900 image 29). There is a calcified granuloma in the right lower lobe. Otherwise unremarkable appearance of the lungs. No pleural effusion. No pneumothorax. Redemonstration of L1 kyphoplasty. No acute or suspicious bony findings. The gallbladder is surgically absent. No adrenal nodule. There are surgical clips in the left upper quadrant adjacent to the stomach with evidence of prior hiatal hernia repair. Procedure Note Richard Oshea MD - 11/13/2024 CT CHEST W CONTRAST DIAGNOSTIC Date of Exam: 11/08/2024 10:59 AM EDT Indication: Lung cancer, post SBRT to right lung. Comparison: PET/CT 05/08/2024, chest CT 01/29/2024, 12/12/2023, 06/13/2023 Technique: Axial CT images were obtained of the chest after the uneventfulintravenous administration of 85 mL Isovue-300. Reconstructed coronal andsagittal images were also obtained. Automated exposure control anditerative construction methods were used. Findings: There is atherosclerosis of the thoracic aorta and aortic arch branchvessels. Normal appearance of the pulmonary arteries. There are coronaryartery calcifications. No pericardial effusion. Homogeneous attenuation ofthe thyroid gland. No bulky adenopathy in the chest. Suggestion of some shotty right hilar lymphnodes, unchanged. Unremarkable appearance of the chest wall soft tissues.The trachea and mainstem bronchi are patent. The smaller peripheralairways appear unremarkable. There is centrilobular emphysema. Redemonstration of bandlike parenchymal densityin the inferior right upper lobe abutting the minor fissure, with somearchitectural distortion, with thin linear extension to the pleura,compatible with scarring/radiation treatment change. Similar appearance of a micronodular cluster in theinferior- most portion of the right upper lobe (series 2 image 54),unchanged since at least 2022, perhaps reflecting noncalcifiedgranulomatous disease. There is a small subpleural nodular cluster in the right middle lobe (series 2 image 63-67, series 901image 25) new or enlarged compared to prior chest CT; the largest discretenodule in this region measures 8 mm in diameter (series 2 image 64, [id number] image 29). There is a calcified granuloma in the right lower lobe. Otherwise unremarkableappearance of the lungs. No pleural effusion. No pneumothorax.Redemonstration of L1 kyphoplasty. No acute or suspicious bony findings.The gallbladder is surgically absent. No adrenal nodule. There are surgical clips in the left upper quadrant adjacent tothe stomach with evidence of prior hiatal hernia repair. IMPRESSION: Impression: Similar treatment-related change of the right upper lobe. New cluster of subpleural nodularity in the right middle lobe, the largestdiscrete nodule measuring approximately 8 mm in diameter. Clusterednodularity is suggestive of an infectious or inflammatory process. Shortinterval CT follow-up to assess for resolution would be reasonable. Similar subpleural micronodularity in the inferior right upper lobe,similar compared to multiple prior exams, favor chronic process ornoncalcified granulomatous disease. Similar appearance of some shotty right hilar lymph nodes without bulky orclearly pathologic adenopathy in the chest. Electronically Signed: Richard Oshea MD 11/13/2024 10:22 AM EDT Workstation ID: [id number] Cj Mckeon MD IMG CT ORDERABLES Fi nal Result from Last 3 Months Insurance MEDICARE A & B [facility] Advance Directives * CPR (Attempt to Resuscitate) (Latest Code Status on File) Date Activated Date Inactivated Comments 04/29/2021 7:52 PM 04/30/2021 7:59 PM Question Answer Comments Code Status (Patient has no pulse and is not breathing): CPR (Attempt to Resuscitate) Medical Interventions (Patie nt has pulse or is breathing): Full Care Teams Rodent Exterminator Relationship Specialty Start Date End Date Juliette Land APRN [address] [place] [address] [place] [id number] PCP - General Family Medicine 03/15/22
== END 2025-01-27 11:15 | disposition home or self-care (01) ==
LOC: INF 10:47
PROVIDERS: PCP Nurse Practitioner Family; Visit Provider Nurse Practitioner Family
DX: M81.0 Age-related osteoporosis without current pathological fracture (principal)
CPT/HCPCS: 96372; J0897

== ENCOUNTER 2025-03-21 20:02 | Emergency (ER) | payer MEDICARE, BC, SELFPAY ==
[2025-03-21] VITALS (10 sets, daily range): BP systolic 80–124; BP diastolic 39–89; PULSE 92–110; RESP 16–20; TEMP 35.7–36.7; O2SAT 95–98; BMI 19.5
--- OUTSIDE RECORDS SUMMARY | 2025-03-21 20:16 | XMS_ITS | Clinical Summary ---
Author Organization [facility] Address [address] [place] [address] Care Team Providers Care Pull Over Machine Operator Name Role Phone Unruly Damon MD Primary Care Provider [phone] Social History Tobacco Use Types Packs/Day Years Used Date Smoking Tobacco: Never Assessed Comments Unknown Sex and Gender Information Value Date Recorded Sex Assigned at Not on file Legal Sex Female 8:41 PM EDT Gender Identity Not on file Sexual Orientation Not on file Plan of Treatment Health Maintenance Due Date Last Done Comments [facility]-Bone Density Scan 1941 [facility]-Depression Screening 1941 [facility]-/Child/Adol SDOH Screenings 1941 [facility]- SDOH Screenings 11/23/1959 [facility]-Adult SDOH Screenings 11/23/1959 [facility]-DTaP,Tdap,and Td Vaccines (1 - Tdap) 1960 [facility]-Pneumococcal Vaccine: 50+ Years (1 of 1 - PCV) 11/23/1991 [facility]-Zoster Vaccines (1 of 2) 11/23/1991 [facility]-RSV Vaccine: 60+ Years or (1 - 1-dose 75+ series) 2016 [id number] Vaccine ( season) 2025 11/12/2021, 02/24/2021, 09/09/2020, Additional history exists [facility]-Influenza [...] age to complete this topic Insurance MEDICARE [facility] Care Teams Pull Over Machine Operator Relationship Specialty Start Date End Date Unruly Damon MD [address] [place] [id number] PCP - General 11/13/20
--- OUTSIDE RECORDS SUMMARY | 2025-03-21 20:16 | XMS_ITS | Clinical Summary ---
Author Organization [facility] Address [address] [place] [address] Care Team Providers Care Inpatient Care Manager Rn Name Role Phone ShandaJuliette santana Sima MARGARITO [...] (03/05/2020): Added automatically from request for surgery [id number] Family History Medical History Relation Name Comments [...] or training? Not on file Preferred Language Bahraini 01/29/2024 PHQ-2 Answer Date Recorded Patient Health [...] Info) Description 05/14/2025 10:30 AM EST Appointment [facility] [address] [place] [address] 05/16/2025 2:30 PM EST Clinical Support [facility] [address] [place] [address] Cj Mckeon MD [address] [place] [id number] 05/19/2025 10:45 AM EST Office Visit [facility] [address] [place] [phone] Jasmeet Garzon MD [address] [address] Health Maintenance Due Date Last Done Comments DXA SCAN 1941 TDAP/TD VACCINES (1 - Tdap) 1960 Pneumococcal Vaccine 50+ (1 of 1 - PCV) 11/23/1991 ZOSTER VACCINE (1 of 2) 11/23/1991 RSV Vaccine - Adults (1 - 1- dose 75+ series) 2016 ANNUAL WELLNESS VISIT 02/18/2020 INFLUENZA VACCINE 01/31/2025 COVID-19 Vaccine (2 - 2024-2 6 season) 2025 04/19/2023 LUNG CANCER SCREENING Discontinued 11/08/2024 , 01/29/2024, 12/12/2023, Additional history exists Medical Devices Implanted Type Area [employer] Teacher Device Identifier Shelf Expiration Date Model / Serial / Lot Mesh Marisel Phasix St Rectg 3x4in Ca/1ea - [id number] Implanted:Qty : 1 on 04/29/2021 by Arslan Evans MD at [facility] Implant N/A: Abdomen DAVOL (DIV OF [employer]) 01/27/2022 [id number] / / [id number] Clipapplr M/ Endo Ligaclip Rot 10mm /Lg - [id number] Implanted:Qty : 1 on 04/29/2021 by Arslan Evans MD at [facility] Implant N/A: Abdomen ETHICON ENDO SURGERY DIV OF J [employer] J [id number] / / Stent X2 Stent Description:Patient unsure, heart stent x2 2014 & 2017 Procedures Procedure Name Priority Date/Time Associated Diagnosis Comments CT CHEST W CONTRAST Routine 11/08/2024 1 1:50 AM EDT Malignant neoplasm of upper lobe, right bronchus or lung from Last 3 Months or Most Recently Relevant to Health Maintenance Results * CT Chest With Contrast Diagnostic [...] MD 11/13/2024 10:22 AM EDT Workstation ID: [id number] Narrative 11/13/2024 10:[address] CHEST W [...] mm in diameter (series 2 image 64, [id number] image 29). There is a calcified granuloma [...] MD 11/13/2024 10:22 AM EDT Workstation ID: [id number] Cj Mckeon MD [facility] CT ORDERABLES Fi nal Result from Last 3 Months or Most Recently Relevant to Health Maintenance [facility] Advance Directives * CPR (Attempt to Resuscitate) (Latest Code Status on File) Date Activated Date Inactivated Comments 04/29/2021 7:52 PM 04/30/2021 7:59 PM Question Answer Comments Code Status (Patient has no pulse and is not breathing): CPR (Attempt to Resuscitate) Medical Interventions (Patie nt has pulse or is breathing): Full Care Teams Inpatient Care Manager Rn Relationship Specialty Start Date End Date Juliette Land APRN [address] [facility] [address] [place] [address] PCP - General Family Medicine 03/15/22
--- NOTE | 2025-03-21 20:40 | CT_ITS ---
PROCEDURE INFORMATION: Exam: CT Abdomen And Pelvis With Contrast Exam date and time: 03/21/2025 9:57 PM Age: 84 years old Clinical indication: Abdominal pain TECHNIQUE: Imaging protocol: Computed tomography of the abdomen and pelvis with contrast. Radiation optimization: All CT scans at this facility use at least one of these dose optimization techniques: automated exposure control; mA and/or kV adjustment per patient size (includes targeted exams where dose is matched to clinical indication); or iterative reconstruction. Contrast material: ISOVUE; Contrast volume: 75 ml; Contrast route: IV; COMPARISON: CT ABDOMEN PELVIS W CON 11/08/2020 4:41 PM FINDINGS: Lungs: Right lower lobe calcified granulomas. Partially included right upper lobe consolidation/atelectasis. Coronary arteries: Moderate-severe coronary artery calcifications. Liver: Unremarkable. Gallbladder and biliary ducts: Cholecystectomy. Mild dilation of the CBD likely secondary to postsurgical changes. Pancreas: Normal. No ductal dilation. Spleen: Unremarkable. Adrenal glands: Unremarkable. Kidneys and ureters: Postoperative changes of prior fundoplication. Right-sided simple cortical renal cysts. No hydronephrosis. Left upper and lower pole cortical scarring. Patchy wedge-shaped hypodensities in the left upper and lower poles may represent areas of renal infarction. Stomach and bowel: Colonic diverticulosis without diverticulitis. There is hypoattenuation within the distal ileum, ascending and transverse colon with loss of bowel features and air-fluid levels concerning for an ischemic colitis. No mechanical bowel obstruction. No definite bowel perforation. Appendix: Suspected appendectomy. Intraperitoneal space: Mild free fluid. Vasculature: Severe atherosclerotic changes of the aorta and its major branches. There is mesenteric venous gas throughout the draining veins of the right lower quadrant small bowel. 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 Critical stenosis of the ostium of the OSORIO with good distal flow. Lymph nodes: No enlarged lymph nodes. Urinary bladder: Collapsed bladder. Reproductive: Hysterectomy. Bones/joints: No acute fracture. L1 vertebroplasty. Moderate multilevel spondylosis. Soft tissues: Unremarkable. IMPRESSION: 1. There is mesenteric venous gas throughout the draining veins of the right lower quadrant small bowel. Along with hypoattenuation within the distal ileum, ascending and transverse colon and loss of bowel features, these findings likely represent an ischemic colitis. 2. Severe atherosclerotic changes throughout however no focal occlusion of the visualized mesenteric arteries. THIS REPORT CONTAINS FINDINGS THAT MAY BE CRITICAL TO PATIENT CARE. The findings were verbally communicated via telephone conference with ARJUN DAVIES at 10:44 PM EDT on 03/21/2025. The findings were acknowledged and understood. COMMENTS: Consistent with the [employer]'s Incidental Findings Committee white paper (J Am Fauzia Radiol 2018): Any incidental renal lesion less than 1 cm or classified as too small to characterize, or any incidental cystic renal lesion characterized as simple-appearing, is likely benign. No follow-up imaging is recommended for these lesions per consensus recommendations based on imaging criteria.
--- NOTE | 2025-03-21 20:41 | XR_ITS ---
PROCEDURE INFORMATION: Exam: XR Chest Exam date and time: 03/21/2025 10:04 PM Age: 84 years old Clinical indication: Shortness of breath; Additional info: Short of breath TECHNIQUE: Imaging protocol: Radiologic exam of the chest. Views: 1 view. COMPARISON: CR XR CHEST 2V 10/12/2024 1:37 PM FINDINGS: Lungs: Chronic right perihilar opacity may represent atelectasis/scarring. Pleural spaces: Unremarkable. No pleural effusion. No pneumothorax. Heart/Mediastinum: Coronary stents. Bones/joints: Unremarkable. Soft tissues: Upper abdominal surgical clips. IMPRESSION: No acute findings.
--- NOTE | 2025-03-21 20:43 | HMH.EDGENADL ---
Discharge Plan Disposition Patient Disposition: Xfer Other Prescriptions Prescriptions: No Action quetiapine 25 mg tablet 25 mg PO DAILY Patient Comments: TAKE 1 TABLET BY MOUTH AT NIGHT ramipril 2.5 mg capsule 2.5 mg PO DAILY Patient Comments: TAKE 1 CAPSULE BY MOUTH ONCE DAILY mirtazapine 15 mg tablet 15 mg PO DAILY aspirin [Adult Low Dose Aspirin] 81 mg tablet,delayed release (DR/EC) 81 mg PO DAILY PreserVision AREDS-2 [phone] ce-libr-pk-mg capsule 1 tab PO DAILY Rx Instructions: administer with meals omeprazole 40 mg capsule,delayed release(DR/EC) 40 mg PO DAILY metoprolol succinate 25 mg tablet extended release 24 hr 25 mg PO QDAY Qty: 90 3RF rosuvastatin 10 mg tablet See Rx Instructions .ROUTE .COMPLEX Qty: 90 3RF Dose Instruction: TAKE 1 TABLET BY MOUTH ONCE DAILY AT BEDTIME NIGHTLY FOR CHOLESTEROL Rx Instructions: TAKE 1 TABLET BY MOUTH ONCE DAILY AT BEDTIME NIGHTLY FOR CHOLESTEROL metoprolol succinate 50 mg tablet extended release 24 hr See Rx Instructions .ROUTE .COMPLEX Qty: 90 4RF Dose Instruction: Take 1 tablet by mouth once daily for blood pressure Rx Instructions: Take 1 tablet by mouth once daily for blood pressure isosorbide mononitrate 30 mg tablet extended release 24 hr See Rx Instructions .ROUTE .COMPLEX Qty: 90 1RF Dose Instruction: Take 1 tablet by mouth once daily Rx Instructions: Take 1 tablet by mouth once daily cholecalciferol (vitamin D3) 125 MCG capsule 125 mcg PO HS Referrals Follow up/Referrals: Juliette Land APRN [Primary Care Provider, Medical] - See instructions Clinical Impressions Clinical Impression: Ischemia, bowel Stand Alone Forms Stand Alone Forms: Transfer Record - ED Instructions Patient Instructions: DI for Acute Abdominal Pain Print Language Print Language: Tuvaluan Discharge ED Provider: Rivera Garcia General Adult HPI <Grace Villarreal (ED), EARLY CHILDHOOD SERVICES COORDINATOR - Last Filed: 03/21/25 23:16> General Chief complaint: Abdominal Pain Stated complaint: Nausea/Vomiting Time Seen by Provider: 03/21/25 20:26 Mode of Arrival: EMS Source of Information: Patient and EMS Description of Symptoms (Recalled from ER Triage Doc. by RN): PT brought to the ED via [facility] for evaluation of lower abd pain, N/V. PT stated it started at 1300 on this date. PT stated she had a small balls bowel movement on this date and has not had a normal BM in x3 days. History of Present Illness HPI narrative: 84-year-old female presents to the ED today for complaint of lower abdominal pain, nausea and vomiting. Patient states that her abdominal pain started at 1:00 today. She states that she has been dry heaving all day. She has not had much to eat or drink. She also has back pain. She states that this is chronic. She tells me that she has not had a normal bowel movement in 3 days. No fevers or chills. No chest pain or shortness of breath. No fevers. Related Data Home Medications ?Medication ?Instructions ?Recorded ?Confirmed aspirin 81 mg tablet,delayed 81 mg PO DAILY [facility] 11/06/17 01/27/25 release (Adult Low Dose Aspirin) cholecalciferol (vitamin D3) 125 125 mcg PO HS Supplement 01/06/20 01/27/25 mcg (5,000 unit) capsule vit C 250 mg-vit E 90 mg-zinc 40 1 tab PO DAILY Supplement 01/24/20 01/27/25 mg-copper 1 [id number] capsule (PreserVision AREDS-2) omeprazole 40 mg capsule,delayed 40 mg PO DAILY 07/20/22 01/27/25 release quetiapine 25 mg tablet 25 mg PO DAILY 01/19/23 01/27/25 ramipril 2.5 mg capsule 2.5 mg PO DAILY 07/29/24 01/27/25 mirtazapine 15 mg tablet 15 mg PO DAILY 01/27/25 01/27/25 Previous Rx's ?Medication ?Instructions ?Recorded metoprolol succinate 25 mg 25 mg PO QDAY #90 tabs 07/20/22 tablet,extended release 24 hr rosuvastatin 10 mg tablet See Rx Instructions .Route 04/23/24 .COMPLEX #90 tabs metoprolol succinate 50 mg See Rx Instructions .Route 10/22/24 tablet,extended release 24 hr .COMPLEX #90 tabs isosorbide mononitrate 30 mg See Rx Instructions .Route 03/11/25 tablet,extended release 24 hr .COMPLEX #90 tabs Allergies Allergy/AdvReac Type Severity Reaction Status Date / Time celecoxib (From CELEBREX) Allergy Severe RAPID Verified 01/27/25 10:23 HEART RATE rofecoxib (From VIOXX) Allergy Severe RAPID Verified 01/27/25 10:23 HEART RATE Penicillins (PENICILLINS) Allergy Unknown Verified 01/27/25 10:23 tuberculin, purified protein Allergy Unknown POSITIVE Verified 01/27/25 10:23 deriva REACTOR (TUBERCULIN,PURIF.PROT.DERIV.) [facility] <Grace Villarreal (ED), EARLY CHILDHOOD SERVICES COORDINATOR - Last Filed: 03/21/25 23:16> [facility] Disclaimer: The information contained in this section may have been updated after the patient was seen, as this information can be updated by other users. Medical History Shoulder injury Abnormal nuclear cardiac imaging test Angina pectoris Hiatal hernia with GERD Palpitations Dyspnea Atypical angina SOB (shortness of breath) Numbness and tingling of both upper extremities Carotid artery stenosis Other forms of angina pectoris Hypertensive heart disease Hyperlipidemia Coronary arteriosclerosis Surgical History History of repair of hiatal hernia Social History (Updated 01/27/25 @ 10:53 by Joana Frey RN) Smoking Status: Never smoker second hand exposure: No alcohol intake: never substance use type: denies use current occupational status: retired Travel in the last 8 weeks?: None household members: family housing: house current occupational exposures/hazards: No caffeine: No Have you lived/traveled outside US in past 30 days?: No Contact w/someone who lives/traveled outside US past 30 days?: No Exposure to someone with infectious disease in past 14 days?: No Do you have a fever (greater than 100.4 F or 38 C)?: No Have you tested positive for COVID-19?: No Exposed to someone with COVID-19 in past 14 days?: No Do you have a sore throat?: No Do you have a cough?: No Do you have any weakness?: No Do you have any diarrhea?: No Are you experiencing any unusual bleeding?: No Do you have any muscle aches/pain?: No Do you have any abdominal pain?: No Are you experiencing loss of taste or smell?: No Other Medical History Have you received the Flu Vaccine for this season: No Have you received the Pneumonia Vaccine: Yes <Grace Villarreal (ED), EARLY CHILDHOOD SERVICES COORDINATOR - Last Filed: 03/21/25 23:16> ROS Obtained: Yes Systems reviewed as appropriate & no additional complaints except as documented Constitutional Constitutional: Reports as per HPI Physical Exam <Grace iVllarreal (ED), EARLY CHILDHOOD SERVICES COORDINATOR - Last Filed: 03/21/25 23:16> General General appearance: alert Head Head exam: normocephalic Eye Eye exam: Present PERRL and EOMI ENT ENT exam: Present normal oropharynx and mucous membranes moist Neck Neck exam: Present full ROM and trachea midline Respiratory Respiratory exam: Present normal lung sounds bilaterally Cardiovascular Cardiovascular exam: Present normal rhythm, tachycardia, normal heart sounds, +S1 and +S2 Abdominal Exam Abdominal exam: Present soft and normal bowel sounds Abdominal tenderness: Present diffuse Extremities Exam Extremities exam: Present full ROM and normal capillary refill Back Exam Back exam: Present normal inspection Neurological Exam Neurological exam: Present alert and oriented X3 Skin Skin exam: Present warm, dry and intact Medical Decision Making <Grace Kilansleyrandy (ED), EARLY CHILDHOOD SERVICES COORDINATOR - Last Filed: 03/21/25 23:16> Medical Records Screening: Per USPSTF and CDC recommendations, given the prevalence of disease in our region, it is our hospital?s policy to screen for HIV and viral Hepatitis for all patients aged 18 and over and those with ongoing risk factors. Sebastián Inquiry Pt receiving controlled substance: No Sebastián was queried for this patient: No Vital Signs: 03/21/25 20:06 03/21/25 20:08 03/21/25 20:12 Temperature 96.3 F L Temperature Source Tympanic Pulse Rate 110 H Pulse Rate [Right] 110 H Respiratory Rate 16 Blood Pressure 80/44 L 107/55 L Blood Pressure [Right Arm] 107/55 L Blood Pressure Mean 56 Blood Pressure Mean [Right Arm] 72 02 Sat by Pulse Oximetry 96 98 95 Oxygen Delivery Method Room Air 03/21/25 20:20 03/21/25 20:31 03/21/25 20:58 Temperature Temperature Source Pulse Rate 110 H 110 H 92 H Pulse Rate [Right] Respiratory Rate Blood Pressure 107/55 L 123/89 96/39 L Blood Pressure [Right Arm] Blood Pressure Mean Blood Pressure Mean [Right Arm] 02 Sat by Pulse Oximetry 97 96 Oxygen Delivery Method 03/21/25 21:25 03/21/25 22:25 03/21/25 22:30 Temperature Temperature Source Pulse Rate 94 H Pulse Rate [Right] Respiratory Rate Blood Pressure 96/55 L 124/55 L 120/56 L Blood Pressure [Right Arm] Blood Pressure Mean 73 67 Blood Pressure Mean [Right Arm] 02 Sat by Pulse Oximetry 97 Oxygen Delivery Method Lab Data Lab Results 03/21/25 20:02: HCV Ab SHIRA w/Rflx PCR Qn Negative, HIV Ag/Ab Combo Qual Negative 03/21/25 20:08: WBC 15.4 H, RBC 4.81, Hgb 14.0, Hct 45.0, MCV 93.6, MCH 29.1, MCHC 31.1 L, RDW 13.7, Plt Count 244, MPV 11.4 H, Neut % (Auto) 78.4, Lymph % (Auto) 18.8, [place] % (Auto) 1.4 L, Eos % (Auto) 0.4, Baso % (Auto) 0.6, Neut # (Auto) 12.1 H, Lymph # (Auto) 2.9, [place] # (Auto) 0.2, Eos # (Auto) 0.1, Baso # (Auto) 0.1, Sodium 142, Potassium 3.1 L, Chloride 103, Carbon Dioxide 14 L, Anion Gap 28.1 H, BUN 18 H, Creatinine 1.70 H, Estimated Creat Clear 18, Estimated GFR 29 L, Est GFR ( Amer) 35 L, Glucose 338 H, Lactate 8.4 H, Calcium 10.6 H, Magnesium 3.8 H, Total Bilirubin 1.2, AST 127 H, ALT 74, Alkaline Phosphatase 185 H, Troponin I < 0.01, Total Protein 8.1, Albumin 4.9, Globulin 3.2, Albumin/Globulin Ratio 1.5, Lipase 346 H 03/21/25 21:06: SARS-CoV-2 (PCR) Not detected, Influenza A Untype (PCR) Not detected, Influenza Type B (PCR) Not detected 03/21/25 22:26: VBG pH 7.10 L, VBG pCO2 43.7, VBG pO2 119.3 H, VBG HCO3 13.4 L, VBG Total CO2 14.7 L, VBG O2 Saturation 97.5 H, VBG Base Excess -16.3 L, VBG Lactic Acid 6.7 H 03/21/25 22:30: Urine Color Yellow, Urine Appearance Clear, Urine pH 5.5, Ur Specific [place] 1.015, Urine Protein 2+ A, Urine Glucose (UA) Negative, Urine Ketones Trace, Urine Blood 1+ A, Urine Nitrate Positive A, Urine Bilirubin Negative, Urine Urobilinogen 4.0, Ur Leukocyte Esterase Trace, Urine RBC 5-10, Urine WBC 20-50, Ur Squamous Epith Cells 20-50, Amorphous Sediment 2+, Urine Bacteria 3+, Urine Mucus 1+ 03/21/25 20:08 03/21/25 20:08 Orders (Tests/Meds): ED MEDICATIONS Generic Name Dose Route Start Last Admin Trade Name Alfonsoq PRN Reason Stop Dose Admin Metronidazole 500 mg in 100 mls @ 100 mls/hr 03/21/25 21:15 03/21/25 23:15 Flagyl 500mg/100ml Ivpb IV 03/31/25 21:14 0 mls/hr Q8H VIANNEY Infusion Sodium Chloride 8 ml 03/21/25 20:40 03/21/25 20:57 Sodium Chloride 0.9% 10ml Vial IV 04/20/25 20:39 8 ml NEEDED PRN Administration dilute pepcid Sodium Chloride 10 ml 03/21/25 22:00 03/21/25 22:01 Sodium Chloride 0.9% 10ml Syr (Rad Only) IV 04/20/25 21:59 10 ml NEEDED PRN Administration Maintain IV Site Discontinued Medications Generic Name Dose Route Start Last Admin Trade Name Alfonsoq PRN Reason Stop Dose Admin Famotidine 20 mg 03/21/25 20:40 03/21/25 20:53 Famotidine 20mg/2ml Vial IV 03/21/25 20:41 20 mg ONCE ONE Administration Hydromorphone HCl 1 mg 03/21/25 21:33 03/21/25 21:51 Hydromorphone 2mg/Ml Syringe IV 03/21/25 21:34 1 mg ONCE ONE Administration Sodium Chloride 1,000 mls @ 999 mls/hr 03/21/25 20:40 03/21/25 22:51 Sod Chlor 0.9% 1000ml Bag IV 03/21/25 21:40 Infused .Q1H1M ONE Infusion Sodium Chloride 1,360 mls @ 680 mls/hr 03/21/25 21:13 03/21/25 23:20 Sod Chlor 0.9% 1000ml Bag 30 ml/kg infuse over 2 hr (1360 ml) 03/21/25 23:12 680 mls/hr IV Administration .Q2H ONE Cefepime HCl 2 gm/ Sodium 100 mls @ 200 mls/hr 03/21/25 21:13 03/21/25 22:52 Chloride IV 03/21/25 21:42 Infused ONCE ONE Infusion Iopamidol 75 ml 03/21/25 22:00 03/21/25 22:01 Iopamidol-370 (76%);100ml Bottle IV 03/21/25 22:01 75 ml ONCE ONE Administration Morphine Sulfate 2 mg 03/21/25 20:42 03/21/25 20:54 Morphine 2mg/Ml Syringe IV 03/21/25 20:43 2 mg ONCE ONE Administration Ondansetron HCl 4 mg 03/21/25 20:42 03/21/25 20:55 Ondansetron 4mg/2ml Vial IV 03/21/25 20:43 4 mg ONCE ONE Administration Ondansetron HCl 4 mg 03/21/25 21:45 03/21/25 21:55 Ondansetron 4mg/2ml Vial IV 03/21/25 21:46 4 mg ONCE ONE Administration Potassium Chloride 40 meq 03/21/25 21:32 03/21/25 22:30 Potassium Chloride 20meq Tab PO 03/21/25 21:33 Not Given ONCE ONE ORDERS Category Date Time Status CT abdomen pelvis w con Stat Cat Scan 03/21/25 20:40 Completed Chest XR -- portable [XR chest portable] Stat Exams 03/21/25 20:41 Completed CBC [Complete Blood Count Auto Diff] Stat Lab 03/21/25 20:08 Completed Comprehensive Metabolic Panel Stat Lab 03/21/25 20:08 Completed HIV Combo Stat Lab 03/21/25 20:02 Completed Hepatitis C Ab Qual. W/ RFX Stat Lab 03/21/25 20:02 Completed Lactic Acid Stat Lab 03/21/25 20:08 Completed Lipase Stat Lab 03/21/25 20:08 Completed Magnesium Stat Lab 03/21/25 20:08 Completed Rapid PCR Covid and Flu A/B Stat Lab 03/21/25 21:06 Completed Trop I [Troponin I] Stat Lab 03/21/25 20:08 Completed Troponin I Q3H Lab 03/21/25 23:45 Ordered Troponin I Q3H Lab 03/22/25 02:45 Ordered UA [Urinalysis and Microscopic] Stat Lab 03/21/25 22:30 Completed Blood Culture Stat Micro 03/21/25 21:40 Received Urine Culture Stat Micro 03/21/25 22:30 Received VBG [Venous Blood Gas] Stat RT 03/21/25 22:26 Completed Medical Decision Narrative: patient is a 84-year-old female presenting to the emergency department for evaluation of abdominal pain and no bowel movement for 3 days. Patient is hemodynamically stable and nontoxic-appearing upon arrival, afebrile. Differential diagnosis includes small bowel obstruction, constipation, gastritis, among others. Workup will be conducted with hematologic labs, specific imaging. Initial inventions include crystalloid bolus, analgesics. Lactic was 8.4 and white count is 15.4. Sepsis bolus, antibiotics were both put in. also evaluated patient. Patient complaining of more pain after morphine initially was given. Order in for Dilaudid for her pain. Patient also had to have more nausea medications. Discussed with [facility] patient's condition and her CT scan. Dr. Delgado excepted patient to [facility] ED. Patient stable for discharge to . Patient and I discussed that she will be going via air VAC. <Rivera Garcia MD - Last Filed: 03/21/25 23:24> Vital Signs: 03/21/25 20:06 03/21/25 20:08 03/21/25 20:12 Temperature 96.3 F L Temperature Source Tympanic Pulse Rate 110 H Pulse Rate [Right] 110 H Respiratory Rate 16 Blood Pressure 80/44 L 107/55 L Blood Pressure [Right Arm] 107/55 L Blood Pressure Mean 56 Blood Pressure Mean [Right Arm] 72 02 Sat by Pulse Oximetry 96 98 95 Oxygen Delivery Method Room Air 03/21/25 20:20 03/21/25 20:31 03/21/25 20:58 Temperature Temperature Source Pulse Rate 110 H 110 H 92 H Pulse Rate [Right] Respiratory Rate Blood Pressure 107/55 L 123/89 96/39 L Blood Pressure [Right Arm] Blood Pressure Mean Blood Pressure Mean [Right Arm] 02 Sat by Pulse Oximetry 97 96 Oxygen Delivery Method 03/21/25 21:25 03/21/25 22:25 03/21/25 22:30 Temperature Temperature Source Pulse Rate 94 H Pulse Rate [Right] Respiratory Rate Blood Pressure 96/55 L 124/55 L 120/56 L Blood Pressure [Right Arm] Blood Pressure Mean 73 67 Blood Pressure Mean [Right Arm] 02 Sat by Pulse Oximetry 97 Oxygen Delivery Method Lab Data Lab Results 03/21/25 20:02: HCV Ab SHIRA w/Rflx PCR Qn Negative, HIV Ag/Ab Combo Qual Negative 03/21/25 20:08: WBC 15.4 H, RBC 4.81, Hgb 14.0, Hct 45.0, MCV 93.6, MCH 29.1, MCHC 31.1 L, RDW 13.7, Plt Count 244, MPV 11.4 H, Neut % (Auto) 78.4, Lymph % (Auto) 18.8, [place] % (Auto) 1.4 L, Eos % (Auto) 0.4, Baso % (Auto) 0.6, Neut # (Auto) 12.1 H, Lymph # (Auto) 2.9, [place] # (Auto) 0.2, Eos # (Auto) 0.1, Baso # (Auto) 0.1, Sodium 142, Potassium 3.1 L, Chloride 103, Carbon Dioxide 14 L, Anion Gap 28.1 H, BUN 18 H, Creatinine 1.70 H, Estimated Creat Clear 18, Estimated GFR 29 L, Est GFR ( Amer) 35 L, Glucose 338 H, Lactate 8.4 H, Calcium 10.6 H, Magnesium 3.8 H, Total Bilirubin 1.2, AST 127 H, ALT 74, Alkaline Phosphatase 185 H, Troponin I < 0.01, Total Protein 8.1, Albumin 4.9, Globulin 3.2, Albumin/Globulin Ratio 1.5, Lipase 346 H 03/21/25 21:06: SARS-CoV-2 (PCR) Not detected, Influenza A Untype (PCR) Not detected, Influenza Type B (PCR) Not detected 03/21/25 22:26: VBG pH 7.10 L, VBG pCO2 43.7, VBG pO2 119.3 H, VBG HCO3 13.4 L, VBG Total CO2 14.7 L, VBG O2 Saturation 97.5 H, VBG Base Excess -16.3 L, VBG Lactic Acid 6.7 H 03/21/25 22:30: Urine Color Yellow, Urine Appearance Clear, Urine pH 5.5, Ur Specific [place] 1.015, Urine Protein 2+ A, Urine Glucose (UA) Negative, Urine Ketones Trace, Urine Blood 1+ A, Urine Nitrate Positive A, Urine Bilirubin Negative, Urine Urobilinogen 4.0, Ur Leukocyte Esterase Trace, Urine RBC 5-10, Urine WBC 20-50, Ur Squamous Epith Cells 20-50, Amorphous Sediment 2+, Urine Bacteria 3+, Urine Mucus 1+ Orders (Tests/Meds): ED MEDICATIONS Generic Name Dose Route Start Last Admin Trade Name Alfonsoq PRN Reason Stop Dose Admin Metronidazole 500 mg in 100 mls @ 100 mls/hr 03/21/25 21:15 03/21/25 23:15 Flagyl 500mg/100ml Ivpb IV 03/31/25 21:14 0 mls/hr Q8H VIANNEY Infusion Sodium Chloride 8 ml 03/21/25 20:40 03/21/25 20:57 Sodium Chloride 0.9% 10ml Vial IV 04/20/25 20:39 8 ml NEEDED PRN Administration dilute pepcid Sodium Chloride 10 ml 03/21/25 22:00 03/21/25 22:01 Sodium Chloride 0.9% 10ml Syr (Rad Only) IV 04/20/25 21:59 10 ml NEEDED PRN Administration Maintain IV Site Discontinued Medications Generic Name Dose Route Start Last Admin Trade Name Richa PRN Reason Stop Dose Admin Famotidine 20 mg 03/21/25 20:40 03/21/25 20:53 Famotidine 20mg/2ml Vial IV 03/21/25 20:41 20 mg ONCE ONE Administration Hydromorphone HCl 1 mg 03/21/25 21:33 03/21/25 21:51 Hydromorphone 2mg/Ml Syringe IV 03/21/25 21:34 1 mg ONCE ONE Administration Sodium Chloride 1,000 mls @ 999 mls/hr 03/21/25 20:40 03/21/25 22:51 Sod Chlor 0.9% 1000ml Bag IV 03/21/25 21:40 Infused .Q1H1M ONE Infusion Sodium Chloride 1,360 mls @ 680 mls/hr 03/21/25 21:13 03/21/25 23:20 Sod Chlor 0.9% 1000ml Bag 30 ml/kg infuse over 2 hr (1360 ml) 03/21/25 23:12 680 mls/hr IV Administration .Q2H ONE Cefepime HCl 2 gm/ Sodium 100 mls @ 200 mls/hr 03/21/25 21:13 03/21/25 22:52 Chloride IV 03/21/25 21:42 Infused ONCE ONE Infusion Iopamidol 75 ml 03/21/25 22:00 03/21/25 22:01 Iopamidol-370 (76%);100ml Bottle IV 03/21/25 22:01 75 ml ONCE ONE Administration Morphine Sulfate 2 mg 03/21/25 20:42 03/21/25 20:54 Morphine 2mg/Ml Syringe IV 03/21/25 20:43 2 mg ONCE ONE Administration Ondansetron HCl 4 mg 03/21/25 20:42 03/21/25 20:55 Ondansetron 4mg/2ml Vial IV 03/21/25 20:43 4 mg ONCE ONE Administration Ondansetron HCl 4 mg 03/21/25 21:45 03/21/25 21:55 Ondansetron 4mg/2ml Vial IV 03/21/25 21:46 4 mg ONCE ONE Administration Potassium Chloride 40 meq 03/21/25 21:32 03/21/25 22:30 Potassium Chloride 20meq Tab PO 03/21/25 21:33 Not Given ONCE ONE ORDERS Category Date Time Status CT abdomen pelvis w con Stat Cat Scan 03/21/25 20:40 Completed Chest XR -- portable [XR chest portable] Stat Exams 03/21/25 20:41 Completed CBC [Complete Blood Count Auto Diff] Stat Lab 03/21/25 20:08 Completed Comprehensive Metabolic Panel Stat Lab 03/21/25 20:08 Completed HIV Combo Stat Lab 03/21/25 20:02 Completed Hepatitis C Ab Qual. W/ RFX Stat Lab 03/21/25 20:02 Completed Lactic Acid Stat Lab 03/21/25 20:08 Completed Lipase Stat Lab 03/21/25 20:08 Completed Magnesium Stat Lab 03/21/25 20:08 Completed Rapid PCR Covid and Flu A/B Stat Lab 03/21/25 21:06 Completed Trop I [Troponin I] Stat Lab 03/21/25 20:08 Completed Troponin I Q3H Lab 03/21/25 23:45 Ordered Troponin I Q3H Lab 03/22/25 02:45 Ordered UA [Urinalysis and Microscopic] Stat Lab 03/21/25 22:30 Completed Blood Culture Stat Micro 03/21/25 21:40 Received Urine Culture Stat Micro 03/21/25 22:30 Received VBG [Venous Blood Gas] Stat RT 03/21/25 22:26 Completed Medical Decision Narrative: patient is a 84-year-old female presenting to the emergency department for evaluation of abdominal pain and no bowel movement for 3 days. Patient is hemodynamically stable and nontoxic-appearing upon arrival, afebrile. Differential diagnosis includes small bowel obstruction, constipation, gastritis, among others. Workup will be conducted with hematologic labs, specific imaging. Initial inventions include crystalloid bolus, analgesics. Lactic was 8.4 and white count is 15.4. Sepsis bolus, antibiotics were both put in. also evaluated patient. Patient complaining of more pain after morphine initially was given. Order in for Dilaudid for her pain. Patient also had to have more nausea medications. Discussed with [facility] patient's condition and her CT scan. Dr. Delgado excepted patient to [facility] ED. Patient stable for discharge to . Patient and I discussed that she will be going via air [facility]. I was consulted by the TERRIE, and we discussed the complexity of the problems being addressed. I approve the treatment and management plan for this patient's care in the emergency department, thus performing a substantive portion of the medical decision making. I did personally examine the patient myself. She is lying in the position, has significant abdominal tenderness and some mild distention. She is diffusely tender with guarding but abdomen is grossly soft and nonperitoneal take. She is ill-appearing. She has been mildly hypotensive, hypothermic and tachycardic meets sepsis criteria. Patient was started on empiric antibiotics with cefepime and Flagyl (allergic to penicillins, thus avoided Zosyn), blood cultures were obtained and she was given sepsis bolus fluids. I discussed patient's case with CT to have radiology evaluate the scan sooner as I am concerned for bowel obstruction. They report that she has evidence of bowel ischemia. Given this, is felt that she will require transfer to higher level of care for surgical evaluation. Will arrange flight transport for patient. Rivera Garcia MD Critical Care <Grace Villarreal (ED), EARLY CHILDHOOD SERVICES COORDINATOR - Last Filed: 03/21/25 23:16> Critical Care Time Critical Care Time: No
[2025-03-21 20:47] LABS: Hematocrit 45.0 % (37.0-47.0); Hemoglobin 14.0 g/dL (12.2-16.2); Immature Granulocytes % 0.4 %; Mean Corpuscular HGB Conc 31.1 g/dL (31.8-35.4); Mean Corpuscular Hemoglobin 29.1 pg (27.0-31.2); Mean Corpuscular Volume 93.6 fl (81-99); Nucleated Red Blood Cells % 0 %; Platelet Count 244 K/mm3 (142-424); Red Blood Count 4.81 M/mm3 (4.20-5.40); Red Cell Distribution Width-SD 47.5 fL; White Blood Count 15.4 K/mm3 (4.8-10.8)
[2025-03-21 20:51] LABS: Albumin Level 4.9 g/dl (3.5-5.0); Chloride 103 mmol/L (98-107); Potassium 3.1 mmoL/L (3.5-5.1); Sodium 142 mmol/L (136-145)
[2025-03-21] MEDS: 0.9 % SODIUM CHLORIDE 1000ML 1,000 ML 999 ML IV (20:51)
[2025-03-21 20:53] LABS: Blood Urea Nitrogen 18 mg/dl (7-17); Creatinine Clearance Estimated 18 mL/min (50-200); Creatinine,Serum 1.70 mg/dl (0.52-1.04); Estimated Glomerular Filt Rate 29 ml/min (>60); GFR (African American) 35 ML/MIN (>60)
[2025-03-21] MEDS: FAMOTIDINE 20MG/2ML VIAL 20 MG IV (20:53)
[2025-03-21 20:54] LABS: Alanine Aminotransferase 74 U/L (12-78); Albumin/Globulin Ratio 1.5 (1.1-1.8); Alkaline Phosphatase 185 U/L (38-126); Anion Gap 28.1 mEq/L (5-15); Aspartate Amino Transferase 127 U/L (14-36); Bilirubin,Total 1.2 mg/dl (0.2-1.3); Calcium 10.6 mg/dl (8.4-10.2); Carbon Dioxide 14 mmol/L (22.0-30.0); Globulin 3.2 g/dL (1.3-3.2); Glucose 338 mg/dl (74-100); Lipase 346 U/L (23-300); Magnesium 3.8 mg/dl (1.6-2.3); Total Protein,Serum 8.1 g/dl (6.3-8.2)
[2025-03-21] MEDS: MORPHINE 2MG/ML SYRINGE 2 MG IV (20:54)
[2025-03-21] MEDS: ONDANSETRON 4MG/2ML VIAL 4 MG IV ×2 (20:55→21:55)
[2025-03-21] MEDS: SODIUM CHLORIDE 0.9% 10ML VIAL 8 ML IV (20:57)
[2025-03-21 21:10] LABS: Troponin I < 0.01 ng/ml (0.00-0.034)
[2025-03-21 21:14] LABS: Coronavirus 19, PCR Not Detected (NotDetected); Influenza A, PCR Not Detected (NotDetected); Influenza B, PCR Not Detected (NotDetected)
--- NOTE | 2025-03-21 21:19 | PC.NURSE ---
Spoke with Marcos at [facility] to verify medication
--- NOTE | 2025-03-21 21:22 | ECG_ITS ---
APPROVED REPORT Exam: Resting ECG HR:94 bpm ECG Measurements Heart Rate 94 AXES NV 166 P 63 QRSd 96 QRS 54 QT 371 T 55 QTc 422 Conclusion SINUS RHYTHM NORMAL ECG UNCONFIRMED REPORT normal sinus rhythm. No ST elevation. QTc WNL Electronically signed by : DEONNA WILCOX, 03/22/2025 15:44:12
[2025-03-21 21:29] LABS: Hepatitis C Ab Qual. W/ RFX NEGATIVE (Negative)
[2025-03-21] MEDS: CEFEPIME HCL 2 GM in 0.9 % SODIUM CHLORIDE 100 ML IV (21:48)
[2025-03-21] MEDS: METRONIDAZ/SOD CHL 500 MG/100 ML PIGGYBACK 100 MG IV (21:48)
[2025-03-21] MEDS: HYDROMORPHONE 2MG/ML SYRINGE 1 MG IV (21:51)
[2025-03-21] MEDS: IOPAMIDOL-370 (76%);100ML BOTTLE 75 ML IV (22:01)
[2025-03-21] MEDS: SODIUM CHLORIDE 0.9% 10ML SYR (RAD ONLY) 10 ML IV (22:01)
[2025-03-21 22:36] LABS: Microscopic, Urine URINE MICROSCOPIC (MICROSCOPIC)
[2025-03-21 22:37] LABS: Color,Urine YELLOW (Yellow); Glucose,Urine (UA) Negative (Negative); Ketones,Urine TRACE (Negative); Leukocyte Esterase,Urine TRACE (Negative); PH,Urine 5.5 (5.0-8.5); Protein,Urine 2+ (Negative); Specific Gravity, Urine 1.015 (1.005-1.030); Urobilinogen,Urine 4.0 EU/dl (0.2)
[2025-03-21 22:37] LABS: VBG HCO3 13.4 mmol/L (23-30); VBG PCO2 43.7 mmol/L (35-51); VBG PO2 119.3 mmol/L (28-40)
[2025-03-21 22:41] LABS: Bilirubin,Urine Negative (Negative)
[2025-03-21 22:43] LABS: VBG PH 7.10 mmol/L (7.31-7.41)
[2025-03-21 22:44] LABS: Lactate Venous 6.7 mmol/L (0.4-2.0)
--- NOTE | 2025-03-21 22:46 | PC.NURSE ---
160 FSBS at 2246. EMS FSBS 350 prior to arrival
--- NOTE | 2025-03-21 22:50 | PC.NURSE ---
Called [facility] for possible pt transfer
[2025-03-21 22:56] LABS: Amorphous Sediment,Urine 2+ /lpf; Bacteria,Urine 3+ /lpf; Mucus,Urine 1+ /lpf; Squamous Epithelial Cell,Urine 20-50 #/hpf (0-5); WBC,Urine 20-50 #/hpf (0-3)
--- NOTE | 2025-03-21 22:59 | PC.NURSE ---
called [facility] for weather check to transport patient to [facility]
--- NOTE | 2025-03-21 23:12 | PC.NURSE ---
Report called to [facility].
[2025-03-21] MEDS: SODIUM CHLORIDE 680 ML IV (23:20)
[2025-03-22 00:44] LABS: Reflex Lactic Add Lactic Reflex
== END 2025-03-21 23:50 | disposition other institution (70) ==
PROVIDERS: Nurse Practitioner; Emergency Provider Student in an Organized Health Care Education/Training Program; PCP Nurse Practitioner Family
DX: R10.9 Unspecified abdominal pain (principal); K55.9 Vascular disorder of intestine, unspecified; R11.2 Nausea with vomiting, unspecified
CPT/HCPCS: 71045; 74177; 80053; 81001; 82803; 83605; 83690; 83735; 84484; 85025; 86803; 87040; 87086; 87389; 87636; 93005; 96365; 96367; 96375; 99285; J0692; J1171; J1836; J2270; J2405; J7030; Q9967